=== PATIENT | male | born 1970 | race Caucasian/White ===

== ENCOUNTER 2019-09-18 14:24 | Emergency (ER) | payer OTHER ==
[~2019-09-18] VITALS: Ht 182.9 cm; Wt 102.1 kg
--- OUTSIDE RECORDS SUMMARY | ~2019-09-18 | XMS | Encounter Summary ---
Demographics + + + | Address | [address] [address] | | | [facility] [facility] [address] | + + + | Home Phone | | + + + | Preferred Language | Unknown | + + + | Marital Status | Single | + + + | Muslim Affiliation | Unknown | + + + | Race | Unknown | + + + | Ethnic Group | Unknown | + + + Author + + + | Author | [facility] | | | and [place] | + + + | Organization | [facility] | | | and [place] | + + + | Address | Unknown | + + + | Phone | Unavailable | + + + Support + + + + + | Name | Relationship | Address | Phone | + + + + + | Elizabeth Venegas | ECON | [address] | | | | | [place] | | | | | [place], [place] | | | | | [address] | | + + + + + | Thu Fitzpatrick | ECON | [address] | | | | | [place], | | | | | [place] [address] | | + + + + + Care Team Providers + +------+ + | Care Woods Rider Name | Role | Phone | + +------+ + | No, Physician | PCP | Unavailable | + +------+ + Encounter Details +--------+ + + + + | Date | Type | Department | Care Team | Description | +--------+ + + + + | 06/06/ | Hospital | [facility] | Conversion | Diagnosis unknown | | 2017 | Encounter | CONVERSION [address] | Transaction, | | | | | [address] | Provider Unknown | | | | | [place] | [phone] | | | | | [address] | | | | | | [phone] | | | +--------+ + + + + Social History + +-------+ +--------+------+ | Tobacco Use | Types | Packs/Day | Years | Date | | | | | Used | | + +-------+ +--------+------+ | Never Smoker | | | | | + +-------+ +--------+------+ + + +---------+ + | Alcohol Use | Drinks/Week | oz/Week | Comments | + + +---------+ + | Not Asked | 0 Standard drinks | 0.0 | | | | or equivalent | | | + + +---------+ + + + + | Sex Assigned at | Date Recorded | | | | + + + | Not on file | | + + + documented as of this encounter Medications at Time of Discharge + + + +---------+ + + | Medication | Sig | Dispensed | Refills | Start | End Date | | | | | | Date | | + + + +---------+ + + | | Take 1-2 tablets by | 20 | 0 | 04/21/19 | | | HYDROcodone-acetamin | mouth every 6 hours | tablet | | 17 | 9 | | ophen (NORCO) 5-325 | as needed for Pain. | | | | | | mg per tablet | | | | | | + + + +---------+ + + | lisinopril | Take 10 mg by mouth | | 0 | | | | (PRINIVIL, ZESTRIL) | Daily. | | | | 9 | | 10 mg tablet | | | | | | + + + +---------+ + + | verapamil (VERELAN | Take 240 mg by mouth | | 0 | 10/30/19 | | | PM) 240 MG 24 hr | Daily. | | | 12 | 9 | | capsule | | | | | | + + + +---------+ + + documented as of this encounter Plan of Treatment Not on filedocumented as of this encounter Procedures + +--------+ + + + | Procedure Name | Priori | Date/Time | Associated Diagnosis | Comments | | | ty | | | | + +--------+ + + + | XR ANKLE LEFT 3 + VW | Routin | 06/06/2016 | | Results for this | | | e | 5:17 PM | | procedure are in the | | | | PDT | | results section. | + +--------+ + + + documented in this encounter Results XR Ankle Left 3 + Vw (06/06/2016 5:17 PM PDT) + + | Specimen | + + | | + + + + + | Narrative | Performed At | + + + | This is a non-reportable procedure without a radiologist report and | | | is used for image storage only | | + + + + + | Procedure Note | + + | Chris Barajas - 09/29/2018 8:10 AM PDT This is a non-reportable procedure | | without a radiologist report and isused for image storage only | + + documented in this encounter Visit Diagnoses + + | Diagnosis | + + | Diagnosis unknown Other unknown and unspecified cause of morbidity or mortality | + + documented in this encounter"
--- OUTSIDE RECORDS SUMMARY | ~2019-09-18 | XMS | Encounter Summary ---
Demographics + + + | Address | [place] [address] | | | [place] [facility] [address] | + + + | Home Phone | | + + + | Preferred Language | Unknown | + + + | Marital Status | Single | + + + | Yarsanism Affiliation | Unknown | + + + | Race | Unknown | + + + | Ethnic Group | Unknown | + + + Author + + + | Author | [facility] | | | and [place] | + + + | Organization | [facility] | | | and [place] | + + + | Address | Unknown | + + + | Phone | Unavailable | + + + Support + + + + + | Name | Relationship | Address | Phone | + + + + + | Elizabeth Venegas | ECON | [address] | | | | | [place] | | | | | [place], [place] | | | | | [address] | | + + + + + | Thu Fitzpatrick | ECON | [address] | | | | | [place], | | | | | [place] [address] | | + + + + + Care Team Providers + +------+ + | Care Senior Instructor Name | Role | Phone | + +------+ + PCP | Unavailable | + +------+ + Encounter Details +--------+ + + + + | Date | Type | Department | Care Team | Description | +--------+ + + + + | 10/18/ | Hospital | [facility] | Nadeen Astorga | | | 2007 | Encounter | [facility] EM[facility] | MD [address] | | | | | CENTER [address] | [facility], | | | | | [place], [place] | [place] [address] | | | | | [address] | [phone] | | | | | [phone] | | | +--------+ + + + + Social History + +-------+ +--------+------+ | Tobacco Use | Types | Packs/Day | Years | Date | | | | | Used | | + +-------+ +--------+------+ | Never Assessed | | | | | + +-------+ +--------+------+ + + + | Sex Assigned at | Date Recorded | | | | + + + | Not on file | | + + + documented as of this encounter Plan of Treatment Not on filedocumented as of this encounter Visit Diagnoses Not on filedocumented in this encounter"
--- OUTSIDE RECORDS SUMMARY | ~2019-09-18 | XMS | Encounter Summary ---
Demographics + + + | Address | [place] [address] | | | [place] [facility] [address] | + + + | Home Phone | | + + + | Preferred Language | Unknown | + + + | Marital Status | Single | + + + | Christian Affiliation | Unknown | + + + | Race | Unknown | + + + | Ethnic Group | Unknown | + + + Author + + + | Author | [facility] | | | and [place] | + + + | Organization | [facility] | | | and [place] | + + + | Address | Unknown | + + + | Phone | Unavailable | + + + Support + + + + + | Name | Relationship | Address | Phone | + + + + + | Elizabeth Venegas | ECON | [address] | | | | | [place] | | | | | [place], [place] | | | | | [address] | | + + + + + | Thu Fitzpatrick | ECON | [address] | | | | | [place], | | | | | [place] [address] | | + + + + + Care Team Providers + +------+ + | Care Technician Automated Equipment Name | Role | Phone | + +------+ + PCP | Unavailable | + +------+ + Encounter Details +--------+ + + + + | Date | Type | Department | Care Team | Description | +--------+ + + + + | 05/04/ | Hospital | [facility] | | | | 1991 | Encounter | MED CTR EMERGENCY | | | | | | CENTER [address] | | | | | | [place] | | | | | | [address] | | | | | | [phone] | | | +--------+ + + + [...]
--- OUTSIDE RECORDS SUMMARY | ~2019-09-18 | XMS | Encounter Summary ---
Demographics + + + | Address | [place] [address] | | | [place] [facility] [address] | + + + | Home Phone | | + + + | Preferred Language | Unknown | + + + | Marital Status | Single | + + + | Voodoo Affiliation | Unknown | + + + | Race | Unknown | + + + | Ethnic Group | Unknown | + + + Author + + + | Author | [facility] | | | and [place] | + + + | Organization | [facility] | | | and [place] | + + + | Address | Unknown | + + + | Phone | Unavailable | + + + Support + + + + + | Name | Relationship | Address | Phone | + + + + + | Elizabeth Venegas | ECON | [address] | | | | | [place] | | | | | [place], [place] | | | | | [address] | | + + + + + | Thu Fitzpatrick | ECON | [address] | | | | | [place], | | | | | [place] [address] | | + + + + + Care Team Providers + +------+ + | Care Set Up Machinist Name | Role | Phone | + +------+ + PCP | Unavailable | + +------+ + Encounter Details +--------+ + + + + | Date | Type | Department | Care Team | Description | +--------+ + + + + | 09/25/ | Hospital | [facility] | | | | 1997 | Encounter | MED CTR EMERGENCY | | | | | | CENTER [address] | | | | | | [place] | | | | | | [address] | | | | | | [phone] | | | +--------+ + + + [...]
--- OUTSIDE RECORDS SUMMARY | ~2019-09-18 | XMS | Encounter Summary ---
Demographics + + + | Address | [place] [address] | | | [facility] [facility] [address] | + + + | Home Phone | | + + + | Preferred Language | Unknown | + + + | Marital Status | Single | + + + | Buddhism Affiliation | Unknown | + + + | Race | Unknown | + + + | Ethnic Group | Unknown | + + + Author + + + | Author | [facility] | | | and [place] | + + + | Organization | [facility] | | | and [place] | + + + | Address | Unknown | + + + | Phone | Unavailable | + + + Support + + + + + | Name | Relationship | Address | Phone | + + + + + | Elizabeth Venegas | ECON | [address] | | | | | [place] | | | | | [place], [place] | | | | | [address] | | + + + + + | Thu Fitzpatrick | ECON | [address] | | | | | [place], | | | | | [place] [address] | | + + + + + Care Team Providers + +------+ + | Care Railroader Name | Role | Phone | + +------+ + | Denny Moore DO | PCP | | + +------+ + Encounter Details +--------+ + + + + | Date | Type | Department | Care Team | Description | +--------+ + + + + | 10/28/ | Abstract | [facility] | DATA [facility]IGRATION [facility]IDAL | | | 2011 | | Conversion Location | SR | | | | | [address] [facility] | | | | | | [place], [place] | | | | | | [address] | | | | | | [phone] | | | +--------+ + + + [...] + + documented as of this encounter Last Filed Vital Signs + + + + + | Vital Sign | Reading | Time Taken | Comments | + + + + + | Blood Pressure | 132/90 | 03/26/2010 12:00 AM | | | | | PST | | + + + + + | Pulse | - | - | | + + + + + | Temperature | - | - | | + + + + + | Respiratory Rate | - | - | | + + + + + | Oxygen Saturation | - | - | | + + + + + | Inhaled Oxygen | - | - | | | Concentration | | | | + + + + + | Weight | 102.1 kg (225 lb) | 03/31/2010 12:00 AM | | | | | PST | | + + + + + | Height | 179.7 cm (5' 10.75") | 03/26/2010 12:00 AM | | | | | PST | | + + + + + | Body Mass Index | 31.6 | 03/26/2010 12:00 AM | | | | | PST | | + + + + + documented in this encounter Plan of Treatment Not on filedocumented as of this encounter Visit Diagnoses Not on filedocumented in this encounter
--- OUTSIDE RECORDS SUMMARY | ~2019-09-18 | XMS | Clinical Summary ---
Demographics + + + | Address | [place] [address] | | | [place] [place] [address] | + + + | Home Phone | | + + + | Preferred Language | Unknown | + + + | Marital Status | Single | + + + | Roman Catholic Affiliation | Unknown | + + + | Race | Unknown | + + + | Ethnic Group | Unknown | + + + Author + + + | Author | [facility] | | | and [place] | + + + | Organization | [facility] | | | and [place] | + + + | Address | Unknown | + + + | Phone | Unavailable | + + + Support + + + + + | Name | Relationship | Address | Phone | + + + + + | Elizabeth Venegas | ECON | [address] | | | | | [place] | | | | | [place], [place] | | | | | [address] | | + + + + + | Thu Fitzpatrick | ECON | [address] | | | | | [place], | | | | | [place] [address] | | + + + + + Care Team Providers + +------+ + | Care Cost Manager Name | Role | Phone | + +------+ + | Reyes Basurto MD | PCP | | + +------+ + Allergies + + + + + + | Active Allergy | Reactions | Severity | Noted | Comments | | | | | Date | | + + + + + + | Bee Venom | Anaphylaxis | High | / | | | | | | 19 | | + + + + + + Medications + + + +---------+------+------+-------+ | Medication | Sig | Dispensed | Refills | Star | End | Statu | | | | | | t | Date | s | | | | | | Date | | | + + + +---------+------+------+-------+ | | Take 1 tablet by | | 0 | 05/0 | | Activ | | HYDROcodone-acetamin | mouth nightly as | | | 9/20 | | e | | ophen (NORCO) | needed for Severe | | | 19 | | | | 7.5-325 mg per | Pain. Limit to 10 | | | | | | | tablet | tabs per month | | | | | | + + + +---------+------+------+-------+ | EPINEPHrine | Inject 0.3 mg into | | 0 | | | Activ | | auto-injector | the muscle as needed | | | | | e | | (EPIPEN 2-YARIEL) 0.3 | for Anaphylaxis. | | | | | | | mg/0.3 mL injection | | | | | | | + + + +---------+------+------+-------+ | albuterol (PROAIR | Inhale 2 puffs into | | 0 | | | Activ | | HFA) 90 mcg/puff | the lungs every 6 | | | | | e | | inhaler | hours as needed for | | | | | | | | Wheezing. | | | | | | + + + +---------+------+------+-------+ | dilTIAZem | Take 240 mg by mouth | | 0 | | | Activ | | (CARDIZEM CD) 120 mg | Daily. | | | | | e | | 24 hr capsule | | | | | | | + + + +---------+------+------+-------+ | albuterol (PROAIR | Inhale 2 puffs into | 1 | 2 | 06/1 | | Activ | | HFA) 90 mcg/puff | the lungs EVERY 4 TO | Inhaler | | 7/20 | | e | | inhaler | 6 HOURS NEEDED | | | 20 | | | | | for Wheezing. | | | | | | + + + +---------+------+------+-------+ | benzonatate | Take 1 capsule by | 30 | 0 | 06/1 | | Activ | | (KENTON DIAZ) | mouth 3 times daily | capsule | | 7/20 | | e | | 100 mg | as needed for Cough. | | | 20 | | | | capsuleIndications: | | | | | | | | Bronchitis with | | | | | | | | bronchospasm | | | | | | | + + + +---------+------+------+-------+ Active Problems + + + | Problem | Noted Date | + + + | Paroxysmal atrial fibrillation | 07/03/2018 | + + + + + | Overview: Echocardiogram 07/03/2018 shows left ventricle is | | normal in size and function, ejection fraction is estimated at | | 62%, mildly thickened mitral valve with mild regurgitation, | | structurally normal tricuspid valve with mild insufficiency and | | peak velocity consistent with normal pulmonary pressures, left | | atrium is mildly enlarged, aortic root is mildly enlarged. | + + + + + | Hypertension, essential | 07/03/2018 | + + + | Closed displaced fracture of tarsal bone of left foot with | 09/08/2016 | | routine healing | | + + + | Neutrophilic leukocytosis | 06/07/2016 | + + + | Open fracture of left calcaneus | 06/06/2016 | + + + | Tachycardia-bradycardia | 03/26/2010 | + + + + + | Overview: LISETH [id number] Decision | + + + + + | ANXIETY STATE, UNSPECIFIED | 03/26/2010 | + + + + + | Overview: ICD-10 Record update | + + + + + | DUPUYTREN'S CONTRACTURE, LEFT | 03/26/2010 | + + + | DEPRESSION | | + + + | Esophageal reflux | | + + + | Fracture of rib | | + + + | Vasovagal syncope | | + + + Encounters +--------+ + + + + | Date | Type | Specialty | Care Team | Description | +--------+ + + + + | 08/03/ | Telephone | Case Management | Reyes Basurto, | Symptom Management | | 2020 | | | MD | | +--------+ + + + + | 08/01/ | Imaging | Radiology | Sarbjit Baldwin | | | 2019 | Exam | | B, DO | | +--------+ + + + + | 08/01/ | Clinical | Immediate Care | Sarbjit Baldwin | Bronchitis with | | 2020 | Support | | B, DO | bronchospasm | | | | | | (Primary Dx); Cough | +--------+ + + + + from Last 3 Months Immunizations + + + + | Name | Administration Dates | Next Due | + + + + | HEP B, 3 DOSE | 12/04/1997, 07/03/1997, 05/24/1997 | | | (ADULT) | | | + + + + | TDAP, (ADOL/ADULT) | 06/06/2016 | | + + + + Social History + +-------+ +--------+------+ | Tobacco Use | Types | Packs/Day | Years | Date | | | | | Used | | + +-------+ +--------+------+ | Never Smoker | | | | | + +-------+ +--------+------+ + +---+---+---+ | Smokeless Tobacco: | | | | | Never Used | | | | + +---+---+---+ + + +---------+ + | Alcohol Use | Drinks/Week | oz/Week | Comments | + + +---------+ + | Yes | 0 Standard drinks | 2.0 | | | | or equivalent 2 | | | | | Cans of beer | | | + + +---------+ + + + + | Sex Assigned at | Date Recorded | | | | + + + | Not on file | | + + + Last Filed Vital Signs + + + + + | Vital Sign | Reading | Time Taken | Comments | + + + + + | Blood Pressure | 139/79 | 08/02/2019 12:37 PM | | | | | PDT | | + + + + + | Pulse | 74 | 08/02/2019 12:37 PM | | | | | PDT | | + + + + + | Temperature | 36.7 C (98.1 F) | 08/02/2019 12:37 PM | | | | | PDT | | + + + + + | Respiratory Rate | 16 | 08/02/2019 12:37 PM | | | | | PDT | | + + + + + | Oxygen Saturation | 96% | 08/02/2019 12:37 PM | | | | | PDT | | + + + + + | Inhaled Oxygen | - | - | | | Concentration | | | | + + + + + | Weight | 104.6 kg (230 lb 9.6 | 07/04/2018 4:25 AM | | | | oz) | PDT | | + + + + + | Height | 180.3 cm (5' 11") | 07/03/2018 3:57 PM | | | | | PDT | | + + + + + | Body Mass Index | 32.16 | 07/03/2018 3:57 PM | | | | | PDT | | + + + + + Plan of Treatment + + + + + | Health Maintenance | Due Date | Last | Comments | | | | Done | | + + + + + | Hepatitis C | | | | | Screening | 9 | | | + + + + + | Colorectal Cancer | | | | | Screening | 9 | | | | (Colonoscopy) | | | | + + + + + | Vaccine: Zoster (1 | | | | | of 2) | 9 | | | + + + + + | Vaccine: Influenza | | | | | (#1) | 0 | | | + + + + + | Vaccine: | | 06/07/19 | | | Dtap/Tdap/Td (2 - | | 17 | | | Td) | | | | + + + + + Procedures + +--------+ + + + | Procedure Name | Priori | Date/Time | Associated Diagnosis | Comments | | | ty | | | | + +--------+ + + + | XR CHEST PA AND | STAT | 08/02/2019 | Cough | Results for this | | LATERAL | | 1:28 PM | | procedure are in the | | | | PDT | | results section. | + +--------+ + + + | CORONAVIRUS | Routin | 08/02/2019 | Cough | Results for this | | (COVID-19) NAAT | e | 11:30 AM | | procedure are in the | | | | PDT | | results section. | + +--------+ + + + from Last 3 Months Results XR Chest PA and Lateral (08/02/2019 1:28 PM PDT) + + | Specimen | + + | | + + + + + | Impressions | Performed At | + + + | No radiographic evidence for acute disease in the chest. | [facility] | | Dictated and Signed by: Michael Ng MD Electronically signed: | | | 08/02/2019 1:39 PM | | + + + + + + | Narrative | Performed At | + + + | EXAM: XR CHEST PA AND LATERAL dated 08/02/2019 1:28 PM HISTORY: | [facility] | | Pain Comparison: 07/03/2018 TECHNIQUE: Frontal and lateral | | | views of the chest. FINDINGS: The lungs are symmetrically | | | aerated. They are clear. There are no pleural effusions. There | | | is no pneumothorax. The cardiac and mediastinal contours are not | | | enlarged. The visible osseous structures are unremarkable. | | + + + + + | Procedure Note | + + | Karl, Rad Results In - 08/02/2019 1:42 PM PDT EXAM: XR CHEST PA AND LATERAL dated | | 08/02/2019 1:28 PMHISTORY: PainComparison: 07/03/2018TECHNIQUE: Frontal and lateral views | | of the chest.FINDINGS:The lungs are symmetrically aerated. They are clear. There are | | no pleuraleffusions. There is no pneumothorax. The cardiac and mediastinal contours | | arenot enlarged. The visible osseous structures are unremarkable. IMPRESSION: No | | radiographic evidence for acute disease in the chest. Dictated and Signed by: Michael Phelps | | MD Berenice Electronically signed: 08/02/2019 1:39 PM | | | |FINDINGS: | |The lungs are symmetrically aerated. They are clear. There are no pleural | |effusions. There is no pneumothorax. The cardiac and mediastinal contours are | |not enlarged. The visible osseous structures are unremarkable. | | | |IMPRESSION: | | | |No radiographic evidence for acute disease in the chest. | | | |Dictated and Signed by: Michael Ng MD | | Electronically signed: 08/02/2019 1:39 PM | + + + +---------+ + + | Performing | Address | City/State/Zipcode | Phone Number | | Organization | | | | + +---------+ + + | [facility] | | | | + +---------+ + + Coronavirus (COVID-19) NAAT (08/02/2019 11:30 AM PDT) + + + + + + | Component | Value | Ref Range | Performed | Pathologist | | | | | At | Signature | + + + + + + | SARS-CoV-2, | Not DetectedComment: | Not Detected | REFERENCE | | | NAAT | This test was developed | | LAB [facility] | | | (COVID-19) | and its performance | | - [facility] | | | | characteristics | | | | | | determinedby [facility] | | | | | | Laboratories. This test | | | | | | has not been FDA cleared | | | | | | orapproved. This test | | | | | | has been authorized by | | | | | | FDA under an Emergency | | | | | | UseAuthorization (EUA). | | | | | | This test is only | | | | | | authorized for the | | | | | | duration oftime the | | | | | | declaration that | | | | | | circumstances exist | | | | | | justifying | | | | | | theauthorization of the | | | | | | emergency use of in | | | | | | vitro diagnostic tests | | | | | | fordetection of | | | | | | SARS-CoV-2 virus and/or | | | | | | diagnosis of COVID-19 | | | | | | infectionunder section | | | | | | 564(b)(1) of the Act, 21 | | | | | | U.S.C. 360bbb-3(b)(1), | | | | | | unlessthe authorization | | | | | | is terminated or revoked | | | | | | sooner.When diagnostic | | | | | | testing is negative, the | | | | | | possibility of a | | | | | | falsenegative result | | | | | | should be considered in | | | | | | the context of a | | | | | | patient'srecent | | | | | | exposures and the | | | | | | presence of clinical | | | | | | signs and | | | | | | symptomsconsistent with | | | | | | COVID-19. An individual | | | | | | without symptoms of | | | | | | COVID-19and who is not | | | | | | shedding SARS-CoV-2 | | | | | | virus would expect to | | | | | | have anegative (not | | | | | | detected) result in this | | | | | | assay. | | | | + + + + + + + + | Specimen | + + | Tissue - Specimen | | from throat | | (specimen) | + + + + + | Narrative | Performed At | + + + | Performed at: 01 - [facility] [address] [place], [place] | REFERENCE LAB | | [id number] Oral Health Therapist: Asaf Low MD, Phone: [phone] | [facility] | + + + + + + + + | Performing | Address | City/State/Zipcode | Phone Number | | Organization | | | | + + + + + | REFERENCE LAB | [address] | [place], [place] | [phone] | | [facility] | [address] | [address] | | + + + + + from Last 3 Months Insurance + +--------+ +--------+ +---------+--------+ | Payer | Benefi | Subscriber | Effect | Phone | Address | Type | | | t Plan | ID | margarita | | | | | | / | | Dates | | | | | | Group | | | | | | + +--------+ +--------+ +---------+--------+ | [employer] | SAIF | [id number] | | [phone] | | Indemn | | | WC | | 013-Pr | 5 | | ity | | | | | esent | | | | + +--------+ +--------+ +---------+--------+ + +--------+ +--------+ + + | Guarantor Name | Accoun | Relation to | Date | Phone | Billing Address | | | t Type | Patient | of | | | | | | | | | | + +--------+ +--------+ + + | Yvette Venegas | 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 | [birth year] | | [address] | | | s Comp | | 1971 | [phone] | [place], | | | | | | [address] (Home) | [place] [address] | | | | | | [phone] | | | | | | | 6 (Work) | | + +--------+ +--------+ + + | Yvette Venegas | Person | Self | [birth year] | | [address] [place] | | | al/Fam | | 1971 | [phone] | [place] | | | zeynep | | | 0 (Home) | [address] | + +--------+ +--------+ + + Advance Directives + + + + + | Type | Date Recorded | Patient | Explanation | | | | Train Conductor | | + + + + + | Power of | | | | | Scientific Diver | | | | + + + + + | Advance | 07/03/2018 11:35 | | | | Directive | AM | | | + + + + + + + + + + | Code Status | Date | Date | Comments | | | Activated | Inactivated | | + + + + + | Full Code | 07/03/2018 | 07/06/2018 | | | | 3:54 PM | 7:25 PM | | + + + + +
--- OUTSIDE RECORDS SUMMARY | ~2019-09-18 | XMS | Encounter Summary ---
Demographics + + + | Address | [id number] | | | [place] [facility] [address] | + + + | Home Phone | | + + + | Preferred Language | Unknown | + + + | Marital Status | Single | + + + | Episcopalian Affiliation | Unknown | + + + | Race | Unknown | + + + | Ethnic Group | Unknown | + + + Author + + + | Author | [facility] | | | and [place] | + + + | Organization | [facility] | | | and [place] | + + + | Address | Unknown | + + + | Phone | Unavailable | + + + Support + + + + + | Name | Relationship | Address | Phone | + + + + + | Elizabeth Venegas | ECON | [address] | | | | | [place] | | | | | [place], [place] | | | | | [address] | | + + + + + | Thu Fitzpatrick | ECON | [address] | | | | | [place], | | | | | [place] [address] | | + + + + + Care Team Providers + +------+ + | Care Personal Care Aid Name | Role | Phone | + +------+ + | Reyes Basurto MD | PCP | | + +------+ + Encounter Details +--------+ + + + + | Date | Type | Department | Care Team | Description | +--------+ + + + + | 06/18/ | Orders Only | [facility] | Candelario Cm ARNP | | | 2016 | | [facility] | [address] | | | | | [address] | [place], [place] | | | | | [place], [place] | [id number] | | | | | [address] | | | | | | [phone] | | | +--------+ + + + [...] LEFT 3 + VW | Routin | 06/18/2016 | | Results for this | | | e | 10:39 AM | | procedure are in the | | | | PDT | | results section. | + +--------+ + + + documented in this encounter Results XR Ankle Left 3 + Vw (06/18/2016 10:39 AM PDT) + + | Specimen | + + | | + + + + + | Narrative | Performed At | + + + | History: This is a 45 y.o. year old male. Diagnosis for Order | | | ICD-10-CM 1. Acute left ankle pain M25.572 X-ray ankle left | | | Indications: Left calcaneal extra-articular fracture follow-up | | | Technique: 3 view x-ray of the left ankle. Comparison Exam: | | | Comparison with x-rays of the left ankle in May 2016 | | | Findings/Impression: 1. Left calcaneus fracture that is | | | extra-articular with shortening and compression 2. No evidence | | | of subtalar joint involvement. BEE SWEENEY DO 06/30/2016 | | | | | + + + + + | Procedure Note | + + | Chris Barajas Conversion - 10/06/2018 8:14 PM PDT History: This is a 45 y.o. year old | | male. Diagnosis for Order ICD-10-CM1. Acute left ankle pain M25.572 X-ray ankle left | | Indications: Left calcaneal extra-articular fracture follow-up Technique: 3 view x-ray | | of the left ankle. Comparison Exam: Comparison with x-rays of the left ankle in | | May2016 Findings/Impression: 1. Left calcaneus fracture that is extra-articular with | | shortening andcompression 2. No evidence of subtalar joint involvement. BEE SWEENEY, | | DO06/30/2016 | | | |Comparison Exam: Comparison with x-rays of the left ankle in May | |2016 | | | |Findings/Impression: | | | |1. Left calcaneus fracture that is extra-articular with shortening and | |compression | | | |2. No evidence of subtalar joint involvement. | | | | | |BEE SWEENEY, DO | |06/30/2016 | | | | | + + documented in this encounter Visit Diagnoses Not on filedocumented in this encounter"
--- OUTSIDE RECORDS SUMMARY | ~2019-09-18 | XMS | Encounter Summary ---
Demographics + + + | Address | [place] [address] [address] | | | [facility] [facility] [address] | + + + | Home Phone | | + + + | Preferred Language | Unknown | + + + | Marital Status | Single | + + + | Sabianist Affiliation | Unknown | + + + | Race | Unknown | + + + | Ethnic Group | Unknown | + + + Author + + + | Author | [facility] | | | and [place] | + + + | Organization | [facility] | | | and [place] | + + + | Address | Unknown | + + + | Phone | Unavailable | + + + Support + + + + + | Name | Relationship | Address | Phone | + + + + + | Elizabeth Venegas | ECON | [address] | | | | | [place] | | | | | [place], [place] | | | | | [address] | | + + + + + | Thu Fitzpatrick | ECON | [address] | | | | | [place], | | | | | [place] [address] | | + + + + + Care Team Providers + +------+ + | Care Teacher Education Instructor Name | Role | Phone | + +------+ + PCP | Unavailable | + +------+ + Encounter Details +--------+ + + + + | Date | Type | Department | Care Team | Description | +--------+ + + + + | 12/06/ | Hospital | [facility] | | | | 1994 | Encounter | MED CTR EMERGENCY | | | | | | CENTER [address] | | | | | | [place] | | | | | | [address] | | | | | | [phone] | | | +--------+ + + + [...]
--- OUTSIDE RECORDS SUMMARY | ~2019-09-18 | XMS | Encounter Summary ---
Demographics + + + | Address | [place] [address] | | | [place] [facility] [address] | + + + | Home Phone | | + + + | Preferred Language | Unknown | + + + | Marital Status | Single | + + + | Muslim Affiliation | Unknown | + + + | Race | Unknown | + + + | Ethnic Group | Unknown | + + + Author + + + | Author | [facility] | | | and [place] | + + + | Organization | [facility] | | | and [place] | + + + | Address | Unknown | + + + | Phone | Unavailable | + + + Support + + + + + | Name | Relationship | Address | Phone | + + + + + | Elizabeth Venegas | ECON | [address] | | | | | [place] | | | | | [place], [place] | | | | | [address] | | + + + + + | Thu Fitzpatrick | ECON | [address] | | | | | [place], | | | | | [place] [address] | | + + + + + Care Team Providers + +------+ + | Care Bolt Threader Name | Role | Phone | + +------+ + PCP | Unavailable | + +------+ + Encounter Details +--------+ + + + + | Date | Type | Department | Care Team | Description | +--------+ + + + + | 09/15/ | Hospital | [facility] | [place], | | | 2006 | Encounter | MED CTR EMERGENCY | Reyes Kramer MD [address] | | | | | [place] [address] | [facility] | | | | | [place] | [place] [address] | | | | | [address] | [phone] | | | | | [phone] | | | +--------+ + + + [...]
--- OUTSIDE RECORDS SUMMARY | ~2019-09-18 | XMS | Encounter Summary ---
Demographics + + + | Address | [place] [address] | | | [place] [facility] [address] | + + + | Home Phone | | + + + | Preferred Language | Unknown | + + + | Marital Status | Single | + + + | Sikh Affiliation | Unknown | + + + | Race | Unknown | + + + | Ethnic Group | Unknown | + + + Author + + + | Author | [facility] | | | and [place] | + + + | Organization | [facility] | | | and [place] | + + + | Address | Unknown | + + + | Phone | Unavailable | + + + Support + + + + + | Name | Relationship | Address | Phone | + + + + + | Elizabeth Venegas | ECON | [address] | | | | | [place] | | | | | [place], [place] | | | | | [address] | | + + + + + | Thu Fitzpatrick | ECON | [address] | | | | | [place], | | | | | [place] [address] | | + + + + + Care Team Providers + +------+ + | Care Nocturnist Physician Name | Role | Phone | + +------+ + | Denny Moore DO | PCP | | + +------+ + Encounter Details +--------+ + + + + | Date | Type | Department | Care Team | Description | +--------+ + + + + | 03/31/ | Hospital | [facility] | Kashif Grijalva | | | 2010 | Encounter | MED CTR XRAY [address] | MD Addy [address] [place] [address] | | | | | [place] | [place] | | | | | [place] [address] | [address] | | | | | [phone] | | | +--------+ + + + [...] + + + +---------+ + + | PARoxetine (PAXIL) | Take 20 mg by mouth | | 0 | 03/26/19 | | | 20 mg tablet | Daily. | | | 11 | 7 | + + + +---------+ + + documented as of this encounter Plan of Treatment Not on filedocumented as of this encounter Visit Diagnoses Not on filedocumented in this encounter"
--- OUTSIDE RECORDS SUMMARY | ~2019-09-18 | XMS | Encounter Summary ---
Demographics + + + | Address | [place] [address] [address] | | | [facility] [facility] [address] | + + + | Home Phone | | + + + | Preferred Language | Unknown | + + + | Marital Status | Single | + + + | Advent Affiliation | Unknown | + + + | Race | Unknown | + + + | Ethnic Group | Unknown | + + + Author + + + | Author | [facility] | | | and [place] | + + + | Organization | [facility] | | | and [place] | + + + | Address | Unknown | + + + | Phone | Unavailable | + + + Support + + + + + | Name | Relationship | Address | Phone | + + + + + | Elizabeth Venegas | ECON | [address] | | | | | [place] | | | | | [place], [place] | | | | | [address] | | + + + + + | Thu Fitzpatrick | ECON | [address] | | | | | [place], | | | | | [place] [address] | | + + + + + Care Team Providers + +------+ + | Care Medicine Worker Name | Role | Phone | + +------+ + | Reyes Basurto MD | PCP | | + +------+ + Reason for Visit + +--------+ + | Reason | Onset | Comments | | | Date | | + +--------+ + | Symptom Management | 08/03/ | | | | 2019 | | + +--------+ + Encounter Details +--------+ + + + + | Date | Type | Department | Care Team | Description | +--------+ + + + + | 08/03/ | Telephone | [facility] | Reyes Basurto, | Symptom Management | | 2019 | | [facility] | [address] [facility] | | | | | [address] [address] | [place] | | | | | [address] [place] | [address] | | | | | [place] [address] | [phone] | | | | | [phone] | | | +--------+ + + + [...] + + documented as of this encounter Functional Status + + + + | Functional Status | Response | Date of Assessment | + + + + | Are you deaf or do you have serious | No | 07/06/2018 | | difficulty hearing? | | | + + + + | Are you blind or do you have serious | No | 07/06/2018 | | difficulty seeing, even when wearing | | | | glasses? | | | + + + + | Do you have serious difficulty walking or | No | 07/06/2018 | | climbing stairs? (5 years old or older) | | | + + + + | Do you have difficulty dressing or bathing? | No | 07/06/2018 | | (5 years old or older) | | | + + + + | Because of a physical, mental, or emotional | No | 07/06/2018 | | condition, do you have difficulty doing | | | | errands alone such as visiting a doctor's | | | | office or shopping? [15 years old or | | | | older)] | | | + + + + + + + + | Cognitive Status | Response | Date of Assessment | + + + + | Because of a physical, mental, or emotional | No | 07/06/2018 | | condition, do you have serious difficulty | | | | concentrating, remembering, or making | | | | decisions? (5 years old or older) | | | + + + + documented as of this encounter Miscellaneous Notes Telephone Encounter - Yvonne Olivia, PT - 08/05/2019 10:39 AM PDT(for 1st contact and 2nd contact calls.) While waiting for your COVID-19 test results, you must wear a mask if yo u need to leave your home. This includes returning to a healthcare facility. Please arrive w earing your mask given to you during your initial evaluation. Do not throw your mask away. Was patient tested for COVID as part of Pre-Op clearance? No If yes, when is their upcoming surgery? N/A Patient reached? Yes, (negative) Called and gave the test results that COVID 19 is negative. Patient to cont inue social distancing, but no longer needs to be on home quarantine . May return to work if fever is gone and no meds were needed to reduce it within the last 24 hours. COVID testing done? Yes COVID results: Negative Describe your symptoms? Congestion and fatigue Are your symptoms getting better, worse, or the same? Symptoms: are improving Lemon in ice water or honey and lemon in tea Popsicles to help reduce core temp and/or sooth throat Use cough drops as needed Diligent hand washing. Soap and water is best for minium of 30 seconds. If using hand sanit izer, must scrub full 20-30 seconds to kill Coronavirus. Rest Fluids, sports drinks, Pedialyte Monitor temperature. If fever of 100.4 alternate use of Tylenol and Ibuprofen every 4 hours . If fever does not come down try a cool shower, light clothing, cool cloth to armpits and b ack of neck, and use of fan. If fever is not resolved within 24 hours or spikes to 103.0 ple ase call your doctors office or Urgent care on weekends. Stay at home so as not to spread germs to the public. If get diarrhea it is best to sanitize toilet with bleach after use. elephone EncounLeslie Corona RN - 08/04/2019 12:43 PM PDT(for 1st contact and 2nd contact calls. ) While waiting for your COVID-19 test results, you must wear a mask if you need to leave yo ur home. This includes returning to a healthcare facility. Please arrive wearing your mask g iven to you during your initial evaluation. Do not throw your mask away. Patient reached? Yes. (pending) Advised to continue home quarantine and social isolating until we get the re sults back of the COVID testing. Encouraged diligent hand washing, rest, and plenty of fluid s. COVID testing done? Yes COVID results: Pending Respiratory Panel results: None Detected [facility] [phone] [place] If an [place] resident, [facility] [phone] Describe your symptoms? Cough, Congestion and fatigue Encouraged rest and fluis- has bronchial pneumonia Are your symptoms getting better, worse, or the same? Symptoms: show no change Have you traveled to or been in contact with with someone who has traveled to [place], [place], [place], [place], or [place] within the last month? No Recommendations: Lemon in ice water or honey and lemon in tea Popsicles to help reduce core temp and/or sooth throat Use cough drops as needed Diligent hand washing. Soap and water is best for minium of 30 seconds. If using hand sanit izer, must scrub full 20-30 seconds to kill Coronavirus. Rest Fluids, sports drinks, Pedialyte Monitor temperature. If fever of 100.4 alternate use of Tylenol and Ibuprofen every 4 hours . If fever does not come down try a cool shower, light clothing, cool cloth to armpits and b ack of neck, and use of fan. If fever is not resolved within 24 hours or spikes to 103.0 ple ase call your doctors office or Urgent care on weekends. Stay at home so as not to spread germs to the public. If get diarrhea it is best to sanitize toilet with bleach after use. documented in thi s encounter Plan of Treatment Not on filedocumented as of this encounter Visit Diagnoses Not on filedocumented in this encounter Additional Health Concerns + + + + + | Infection | Onset Date | Last Indicated | Resolved Time | + + + + + | Rule out COVID-19 | 08/02/2019 | 08/02/2019 | 08/04/2019 4:07 PM | | | | | PDT | + + + + + documented as of this encounter"
--- OUTSIDE RECORDS SUMMARY | ~2019-09-18 | XMS | Encounter Summary ---
Demographics + + + | Address | [place] [address] [address] | | | [facility] [facility] [address] | + + + | Home Phone | | + + + | Preferred Language | Unknown | + + + | Marital Status | Single | + + + | Evangelical Affiliation | Unknown | + + + | Race | Unknown | + + + | Ethnic Group | Unknown | + + + Author + + + | Author | [facility] | | | and [place] | + + + | Organization | [facility] | | | and [place] | + + + | Address | Unknown | + + + | Phone | Unavailable | + + + Support + + + + + | Name | Relationship | Address | Phone | + + + + + | Elizabeth Venegas | ECON | [address] | | | | | [place] | | | | | [place], [place] | | | | | [address] | | + + + + + | Thu Fitzpatrick | ECON | [address] | | | | | [place], | | | | | [place] [address] | | + + + + + Care Team Providers + +------+ + | Care Ophthalmic Photographer Name | Role | Phone | + +------+ + | Reyes Basurto MD | PCP | | + +------+ + Encounter Details +--------+ + + + + | Date | Type | Department | Care Team | Description | +--------+ + + + + | 08/01/ | Imaging | [facility] | Sarbjit Baldiwn | | | 2020 | Exam | [facility] [address] | | | | [address] | [place] | | | | | [place] [address] | [address] | | | | | [phone] | | | +--------+ + + + [...] + documented in this encounter Results XR Chest PA and Lateral (08/02/2019 1:28 PM PDT) + + | Specimen | + + | | + + + + + | Impressions | Performed At | + + + | No radiographic evidence for acute disease in the chest. | [facility] | | Dictated and Signed by: Michael gN MD Electronically signed: | | | 08/02/2019 [...] | | | + +---------+ + + documented in this encounter Visit [...]
--- OUTSIDE RECORDS SUMMARY | ~2019-09-18 | XMS | Encounter Summary ---
Demographics + + + | Address | [place] [address] | | | [place] [facility] [address] | + + + | Home Phone | | + + + | Preferred Language | Unknown | + + + | Marital Status | Single | + + + | Caodaism Affiliation | Unknown | + + + | Race | Unknown | + + + | Ethnic Group | Unknown | + + + Author + + + | Author | [facility] | | | and [place] | + + + | Organization | [facility] | | | and [place] | + + + | Address | Unknown | + + + | Phone | Unavailable | + + + Support + + + + + | Name | Relationship | Address | Phone | + + + + + | Elizabeth Venegas | ECON | [address] | | | | | [place] | | | | | [place], [place] | | | | | [address] | | + + + + + | Thu Fitzpatrick | ECON | [address] | | | | | [place], | | | | | [place] [address] | | + + + + + Care Team Providers + +------+ + | Care Study Manager Name | Role | Phone | + +------+ + | Denny Moore DO | PCP | | + +------+ + Encounter Details +--------+ + + + + | Date | Type | Department | Care Team | Description | +--------+ + + + + | 11/17/ | Hospital | [facility] | [place], | | | 2012 | Encounter | MED CTR EMERGENCY | Reyes Kramer MD [address] | | | | | [place] [address] | [place] | | | | | [place], [place] | [place] [address] | | | | | [address] | [phone] | | | | | [phone] | | | +--------+ + + + [...] + + documented as of this encounter ED Notes Christofer Ritter MD - 11/17/2012 2:52 [place] [address] Patient Name: SAUMYA VENEGAS Provider: Unit #: [id number] Location: [facility] #: [id number] : 1970 DATE: 11/17/2012 PRIMARY PHYSICIAN: Dr. Farley. CHIEF COMPLAINT: Bee sting reaction. 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 He has a history anaphylaxis to bee stings. He wa ited a little bit and started to feel a little symptomatic, so he took some 75 mg of Benadr yl and he started getting some chest tightness and so he came in here. He did not have to u se his EpiPen prior to arrival. He says he has a little bit of itching on his legs. 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 CURRENT MEDICATIONS: 1. Verapamil. 2. Paroxetine. 3. Benadryl. ALLERGIES: NO MEDICATIONS. SOCIAL HISTORY: Does not smoke. REVIEW OF SYSTEMS All negative except noted above. PHYSICAL EXAMINATION VITAL SIGNS: Blood pressure 141/79, heart rate 81, respiratory rate 16, temperature 97.3, pulse oximetry 96% on room air. GENERAL: He is not in acute distress, a little bit anxious. HEENT: He has two bee sting sites on the left neck, no stinger in place. Skin does not hav e any rash, but he complains of itching on his legs. His oropharynx reveals no swelling of the tongue or lips. CARDIOVASCULAR: Reveals regular rate and rhythm. No murmur or rubs. LUNGS: Reveal coarse breath sounds, a little bit of expiratory wheezing bilaterally. EMERGENCY ROOM COURSE: The patient was given 0.3 mg of epinephrine IM and also some predni sone. He was observed in the ER for unde an hour and a half. During that time he steadily i mproved. I reexamined him several times and by the time of his discharge he feels normal. IMPRESSION: ACUTE ALLERGIC REACTION to bee sting. PLAN: Discharged home, given some new EpiPens, put him on prednisone for 4 more days, told to take Benadryl as needed and did an L and I form for him. DICTATED BY: Glen Ritter MD Emergency Medicine JOB #: [id number] EXT JOB #:[id number] cc: Sarbjit Farley <<Signature on File>> Jovanny Ritter MD1 1503 <Electronically signed by Christofer Ritter MD> documented in this encounter Plan of Treatment Not on filedocumented as of this encounter Visit Diagnoses Not on filedocumented in this encounter"
--- OUTSIDE RECORDS SUMMARY | ~2019-09-18 | XMS | Encounter Summary ---
Demographics + + + | Address | [place] [address] | | | [facility] [address] | + + + | Home Phone | | + + + | Preferred Language | Unknown | + + + | Marital Status | Single | + + + | Orthodox Affiliation | Unknown | + + + | Race | Unknown | + + + | Ethnic Group | Unknown | + + + Author + + + | Author | [facility] | | | and [place] | + + + | Organization | [facility] | | | and [place] | + + + | Address | Unknown | + + + | Phone | Unavailable | + + + Support + + + + + | Name | Relationship | Address | Phone | + + + + + | Elizabeth Venegas | ECON | [address] | | | | | [place] | | | | | [place], [place] | | | | | [address] | | + + + + + | Thu Fitzpatrick | ECON | [address] | | | | | [place], | | | | | [place] [address] | | + + + + + Care Team Providers + +------+ + | Care Primer Supervisor Name | Role | Phone | + +------+ + | Reyes Basurto MD | PCP | | + +------+ + Reason for Visit +--------+ + | Reason | Comments | +--------+ + | Cough | Room 8:cough with tightness of chest, using inhaler - helps - | | | hot/chills, possible fever | +--------+ + Encounter Details +--------+ + + + + | Date | Type | Department | Care Team | Description | +--------+ + + + + | 08/01/ | Clinical | [facility] | Sarbjit Baldwin | Bronchitis with | | 2020 | Support | CARE [address] | B, DO [address] | bronchospasm | | | | [place] | [place] | (Primary Dx); Cough | | | | [address] | [address] | | | | | [phone] | | | +--------+ + + + [...] + + + + | Weight | - | - | | + + + + + | Height | - | - | | + + + + + | Body Mass Index | - | - | | + + + + + documented in this encounter Functional Status + + + [...] + + documented as of this encounter Patient Instructions Patient Instructions Sarbjit Baldwin, - 08/02/2019 11:35 AM PDT Viral or Bacterial Bronchitis with Wheezing(Adult) Bronchitis is an infection of the air passages. It often occurs during a cold and is usuall y caused by a virus. Symptoms include cough with mucus (phlegm) and low-grade fever. This il lness is contagious during the first few days and is spread through the air by coughing and sneezing, or by direct contact (touching the sick person and then touching your own eyes, no se, or mouth). If there is a lot of inflammation, air flow is restricted. The air passages may also go int o spasm, especially if you have asthma. This causes wheezing and difficulty breathing even i n people who do not have asthma. Bronchitis usually lasts 7 to 14 days. The wheezing should improve with treatment during th e first week. An inhaler is often prescribed to relax the air passages and stop wheezing. An tibiotics will be prescribed if your doctor thinks there is also a secondary bacterial infec tion. Home care If symptoms are severe, rest at home for the first 2 to 3 days. When you go back to your usual activities, don't let yourself get too tired. Dont s'moke. Also avoid being exposed to secondhand smoke. You may use bmri-lmb-pfoswip medicine to control fever or pain, unless another medicine was prescribed. Note: If you have chronic liver or kidney disease or have ever had a stomach ulcer or gastrointestinal bleeding, talk with your healthcare provider before using these m edicines. Also talk to your provider if you are taking medicine to prevent blood clots.) Asp irin should never be given to anyone younger than 18 years of age who is ill with a viral in fection or fever. It may cause severe liver or brain damage. Your appetite may be poor, so a light diet is fine. Stay well hydrated by drinking 6 to 8 glasses of fluids per day (such as water, soft drinks, sports drinks, juices, tea, or soup ). Extra fluids will help loosen secretions in the nose and lungs. Jnbv-ixx-tepdsfy cough, cold, and sore-throat medicines will not shorten the length of t he illness, but they may be helpful to reduce symptoms. (Note: Don't use decongestants if yo u have high blood pressure.) If you were given an inhaler, use it exactly as directed. If you need to use it more oft en than prescribed, your condition may be worsening. If this happens, contact your healthcar e provider. If prescribed, finish all antibiotic medicine, even if you are feeling better after only a few days. Follow-up care Follow up with your healthcare provider, or as advised. If you had an X-ray or ECG (electro cardiogram), a specialist will review it. You will be notified of any new findings that may affect your care. If you are age 65 or older, or if you have a chronic lung disease or condition that affects your immune system, or you smoke, ask your healthcare provider about getting a pneumococcal vaccine and a yearly flu shot (influenza vaccine). When to seek medical advice Call your healthcare provider right away if any of these occur: Fever of 100.4F (38C) or higher, or as directed by your healthcare provider Coughing up increasing amounts of colored sputum Weakness, drowsiness, headache, facial pain, ear pain, or a stiff neck Call 911 Call 911 if any of these occur. Coughing up blood Worsening weakness, drowsiness, headache, or stiff neck Increased wheezing not helped with medication, shortness of breath, or pain with breathi nicole Fontenot last reviewed this educational content on 07/16/201719991774-3904 [email or web address]. [address] [place] [address]. All righ ts reserved. This information is not intended as a substitute for professional medical care. Always follow your healthcare professional's instructions. documented in this encounter Progress Notes Sarbjit Baldwin DO - 08/02/2019 11:35 AM PDT Subjective: Chief Complaint: Cough (Room 8:cough with tightness of chest, using inhaler - helps - hot/c hills, possible fever) NIDHI Crawford is a 48 y.o. male who presents today for days of chest congestion, slight expiratory w heeze, and cough his cough is semi-productive of a yellow to clear sputum which is worse at night and in the a.m. Chest congestion has progressively gotten worse since Wednesday. He was getting chills and possibly having fever which wax and wane in timing and intensity. He mohr s had to use his inhaler at home for the wheezing. He denies any recent travel or sick conta cts either at home or at work. He does have a remote history of atrial fibrillation which is being controlled nicely with medication. He denies having any chest pain with this episode of respiratory symptoms. Patient's medications, allergies, past medical, surgical, social and family histories were reviewed and updated as appropriate. Review of Systems Constitutional: Negative for fever. HENT: Positive for congestion and sore throat. Respiratory: Positive for cough, sputum production and wheezing. Gastrointestinal: Negative for abdominal pain, nausea and vomiting. Genitourinary: Negative for dysuria. Musculoskeletal: Negative for myalgias. Skin: Negative for rash. Neurological: Negative for headaches. Objective: BP 139/79 | Pulse 74 | Temp 36.7 C (98.1 F) (Temporal) | Resp 16 | SpO2 96% Physical Exam Vitals signs and nursing note reviewed. Constitutional: Appearance: Normal appearance. He is well-developed. He is obese. HENT: Head: Normocephalic and atraumatic. Right Ear: Tympanic membrane and ear canal normal. Left Ear: Tympanic membrane and ear canal normal. Nose: Nose normal. Mouth/Throat: Mouth: Mucous membranes are moist. Pharynx: Posterior oropharyngeal erythema present. No oropharyngeal exudate. Eyes: Pupils: Pupils are equal, round, and reactive to light. Neck: Musculoskeletal: Normal range of motion and neck supple. No muscular tenderness. Cardiovascular: Rate and Rhythm: Normal rate and regular rhythm. Heart sounds: Normal heart sounds. Pulmonary: Effort: Pulmonary effort is normal. Breath sounds: Wheezing present. Comments: Coarse breath sounds in the lower left base Musculoskeletal: Normal range of motion. Lymphadenopathy: Cervical: No cervical adenopathy. Skin: General: Skin is warm and dry. Capillary Refill: Capillary refill takes less than 2 seconds. Neurological: General: No focal deficit present. Mental Status: He is alert and oriented to person, place, and time. Cranial Nerves: No cranial nerve deficit. Psychiatric: Mood and Affect: Mood normal. No results found for this or any previous visit (from the past 24 hour(s)). Assessment: 1. Bronchitis with bronchospasm benzonatate (TESSALON PERLES) 100 mg capsule promethazine-codeine (PHENERGAN WITH CODEINE) 6.25-10 mg/5 mL syrup 2. Cough Coronavirus (COVID-19) NAAT XR Chest PA and Lateral Plan: Self quarantine instructions were given and he stated comprehension to these instructions. Work note was written and given to patient until his COVID-19 results have returned. Chest x-ray does not show any pulmonary disease processes. We will place him on the ogof-tne-dqs program if he does not get markedly better within the next 2 to 3 days he will start doxycycline 100 mg p.o. twice daily x10 days. I gave him cough medicines to help with daytime and at bedtime cough. Him on prednisone 50 mg a day x5 days. I refilled his albuterol inhaler. I encouraged him to increase his fluids, wash hands frequently. He can use Tylenol or ibuprofen for fevers and myalgias. Patient states comprehension to these discharge instructions and agrees with this shared me dical decision making. This note or portions of this note have been dictated using Leet[employer] recognition s oftware. It will be reviewed for major content but may contain mistakes due to difficulties with voice recognition software. Anabela Berumen RN - 08/02/2019 11:35 AM PDT . [facility] Intake Form (RN) Affix Patient Label [] Photo ID Verified Patient Name:Yvette Venegas Provider:[facility] URGENT NURSE :1970 Date:08/02/19 MyChart: Activated Vitals: There were no vitals taken for this visit. RN History/Symptom Review (if available, RN to review patient chart): If any of these are true, patient must see provider in . [] Uncontrolled Diabetes Mellitus, with last A1c >8.0 or unknown [] COPD [] Current Cancer Treatment [] Immunosuppression [] Chronic Kidney Disease with GFR <50 mL/min [] Suspected Strep Throat [] Congestive Heart Failure [] Liver Disease [] Chronic Steroid Use [] Additional Evaluation Notes: See chief complaint Testing Protocol: Proceed to testing if ANY of the following conditions are present: DRIVE THRU SWAB SCREENING [] Asymptomatic, regardless of age, pre-procedure screening only [] Asymptomatic testing requested by authorized [facility] personnel, [facility] Infection Preventio n Nurse or Caregiver Health [] Asymptomatic testing requested for pre-travel screening [x] Age 15-70 with any symptoms indicated in MA screening [] Age >70 with Temp <100.4 F, O2 sat >95%, Pulse <100 bpm, without cough, Hx of fever, chi lls, chest pain, SOB, abdominal pain, vomiting or diarrhea. If only symptom is sore throat, body aches, headache and change in taste or smell ok for drive thru testing. PROVIDER EVALUATION REQUIRED [] Patient Requested [] Temp >102 F [] O2 Sat ? 95% [] Pulse > 100 [] Symptomatic with any listed comorbidities [] Dominant sore throat with little or no cough (strep rule out) [] Age <15 years old with symptoms [x] MA identified symptoms in screening that indicate testing (see MA intake) [] Symptom check completed - patient is asymptomatic - here for pre-procedure screening on ly Asymptomatic patients will NOT be screened regardless of exposure history, unless pre-proce dure screening is indicated. If dominant sore throat without cough, send to Urgent Care for provider evaluation and swab for strep (not provided at [facility]). Based on my assessment of both epidemiological and clinical factors, this patient [x] IS / [] IS NOT a person under investigation (PUI) for COVID-19. Any persons tested for COVID-19 are considered a PUI. Triage: Patient triaged to see provider in Urgent Care [] Yes [x] No Discharge: [x] Social Distancing/Quarantine Guidelines [x] Upper Respiratory Infection Self Care Instructions [x] Work Letter Anabela Berumen RN - 08/02/2019 11:35 AM [facility] Intake Form (MA) Affix Patient Label [] Photo ID Verified Patient Name:Yvette Venegas Provider:[facility] :1970 Date:08/02/19 [] Intention to see provider [] Intention for screening at drive through [] Pre-proced ure screening regardless of age [] <15, symptomatic (must be seen inside) MyChart: Activated Symptom Screen: How many days have you been experiencing symptoms? 3 days [x] Cough: duration of cough? 3 days ? If symptoms or cough >10 days, send to UC for provider evaluation [] Shortness of breath ? Confer with provider or send in to UC if obviously having labored breathing [] Fever >100.4 [x] Chills and/or repeated shaking with chills [] Sore Throat [x] Body Aches or Muscle Pain [] Headache [] Exposure to a person with confirmed COVID-19 If yes, details: Chest tightness -feels like bronchitis [x] Chest Pain, warm hand transfer to RN inside (Room 1 for triage) [] Abdominal Pain [] Nausea [] Vomiting [] Diarrhea [] Change in Sense of Smell and/or Taste [] Other:____light headedness Demographics: [] Exposure to person with confirmed COVID - 19 If yes, details: [x] Where do you work? [employer] [place] [employer] [x] What day did you last work? 07/28/19 [] Healthcare worker? NO documented in thi s encounter Plan of [...] + + | Performed at: 01 - [facility] [address] [place], [place] | REFERENCE LAB | | [phone] Senior Applications Analyst: Asaf Low MD, Phone: [phone] | [facility] | + + + + + + + + | Performing | Address | City/State/Zipcode | Phone Number | | Organization | | | | + + + + + | REFERENCE LAB | [address] | [place], [place] | [phone] | | [facility] | [address] | [address] | | + + + + + documented in this encounter Visit Diagnoses + + | Diagnosis | + + | Bronchitis with bronchospasm - Primary Acute bronchitis | + + | Cough | + + documented in this encounter Additional Health Concerns + [...]
--- OUTSIDE RECORDS SUMMARY | ~2019-09-18 | XMS | Encounter Summary ---
Demographics + + + | Address | [place] [address] | | | [facility] [address] | + + + | Home Phone | | + + + | Preferred Language | Unknown | + + + | Marital Status | Single | + + + | Jewish Affiliation | Unknown | + + + | Race | Unknown | + + + | Ethnic Group | Unknown | + + + Author + + + | Author | [facility] | | | and [place] | + + + | Organization | [facility] | | | and [place] | + + + | Address | Unknown | + + + | Phone | Unavailable | + + + Support + + + + + | Name | Relationship | Address | Phone | + + + + + | Elizabeth Venegas | ECON | [address] | | | | | [place] | | | | | [place], [place] | | | | | [address] | | + + + + + | Thu Fitzpatrick | ECON | [address] | | | | | [place], | | | | | [place] [address] | | + + + + + Care Team Providers + +------+ + | Care Transportation Planning Engineer Name | Role | Phone | + +------+ + | Denny Moore DO | PCP | | + +------+ + Encounter Details +--------+ + + + + | Date | Type | Department | Care Team | Description | +--------+ + + + + | 06/30/ | Hospital | [facility] | Nadeen Astorga | | | 2012 | Encounter | [facility] | MD [address] | | | | | [address] | [facility] | | | | | [place] | [place] [address] | | | | | [address] | [phone] | | | | | [phone] | | | +--------+ + + + [...] documented as of this encounter ED Notes Nadeen Astorga MD - 06/30/2012 3:32 [place] [address] Patient Name: SAUMYA VENEGAS Provider: Unit #: [id number] Location: : 1970 DATE: 06/30/2012 PRIMARY CARE PHYSICIAN: Dr. Thompson at [facility]. CHIEF COMPLAINT: Fall, left flank pain. HISTORY OF PRESENT ILLNESS: This is a 41-year-old male who comes ambulatory to the emergen cy department. The patient was up on a ladder at a 6 feet height when he fell. His left fla nk came across a 4x4 that was suspended off the ground. He did not hit his head. He did not have any loss of consciousness. He complains of intense left flank pain, 8/10 in severity, worse with any kind of movement or with breathing, and he feels like he probably broke a r ib. He denies any other areas of back pain. No neck pain. PAST MEDICAL HISTORY: "Bradycardia". MEDICATIONS 1. Paroxetine. 2. Verapamil. ALLERGIES: NONE. REVIEW OF SYSTEMS: No vomiting. No hematuria. He has voided since the fall. PHYSICAL EXAMINATION VITAL SIGNS: Temp 98.0, respirations 16, heart rate 73, blood pressure 156/86, O2 saturati on 96% room air, 104 kg. GENERAL: An overweight male. SKIN: Warm, dry. He has a left flank hematoma at about the level of T10, but it is lateral to the spine and erythema extends around the left costal margin. HEAD: Normocephalic, atraumatic. NECK: Nontender. Normal range of motion. HEART: Regular rate and rhythm. No tachycardia. LUNGS: Clear to auscultation throughout bilaterally. CHEST: There was no palpable bony crepitation. No subcutaneous air. BACK: He was nontender to palpation along the midline thoracic and lumbar spine, but was t sascha just off the midline to the left. He does not really have any palpable paraspinal mus elisha spasm. ABDOMEN: He is tender to palpation in the left upper quadrant and left lateral flank espec ially. NEUROLOGIC: Patient is awake, alert, and oriented. EMERGENCY DEPARTMENT COURSE: Given the location of his contusion from a significant mechan ism of a fall, we established IV access. He was given morphine titrated to pain. CT of the chest, abdomen, and pelvis with IV contrast and thoracic and lumbar regions was ordered. He is certainly at risk for a pneumothorax, rib fractures, but especially an injury to the le ft kidney or spleen. Results of the CT were received from the radiologist indicating he has only one small leve l rib fracture at rib 10. No pneumothorax. No solid organ injury and that is reassuring. Th ere was no spine injury in the thoracic or lumbar spine and his neck is cleared clinically. No signs of a injury. He will be switched over to Percocet for pain. He has previously used hydrocodone and it h as not been very effective. He can also take ibuprofen. He should cough and deep breathe. Shana thomas discussed the importance of this to keep lungs healthy. He was given a note off of work i f needed and it looked like he was getting much better pain control. IMPRESSION: LEFT RIB FRACTURE, STATUS POST MECHANICAL FALL. DICTATED BY: Nadeen Astorga MD Emergency Medicine JOB #: [id number] EXT JOB #:[id number] <<Signature on File>> Nadeen Astorga MD07/18/12 1812 <Electronically signed by Nadeen Astorga MD> documented in this encounter Plan of Treatment Not on filedocumented as of this encounter Procedures + +--------+ + + + | Procedure Name | Priori | Date/Time | Associated Diagnosis | Comments | | | ty | | | | + +--------+ + + + | CT CHEST ABDOMEN | Routin | 06/30/2012 | | Results for this | | PELVIS W CONTRAST | e | 12:40 PM | | procedure are in the | | | | PDT | | results section. | + +--------+ + + + documented in this encounter Results CT Chest Abdomen Pelvis w Contrast (06/30/2012 12:40 PM PDT) + + | Specimen | + + | | + + + + + | Narrative | Performed At | + + + | [facility] | [place] | | Department [address] [facility] | [facility] | | [ rep [address]] [ rep [facility] | | st zip] Signed | - IMAGING | | | | | Patient Name: SAUMYA VENEGAS Jovanny Physician: | | | SCHR.01 : 1970 Age: 41 Sex: M Unit #: [id number] | | | Exam Date: 06/30/12 Location: ER | | | Report #: [id number] Page: | | | %(RAD)RES..mtdd.print.filter("pg") of %(RAD) | | | RES..mtdd.print.filter("tpg") | | | | | | Accession Number: [id number] | | | CT CHEST AND ABDOMEN PELVIS WITH IV CONTRAST CLINICAL | | | HISTORY: FELL OFF LADDER, TRAUMA, WITH LEFT-SIDED PAIN. | | | TECHNIQUE: Axial images were obtained from the base of the neck to | | | the inferior pelvis following administration of 100 mL Isovue 370 | | | contrast. Coronal and sagittal reformatted images were created. | | | FINDINGS: CHEST: The structures at the base of | | | the neck are unremarkable. No abnormal mediastinal lymph nodes are | | | present. The aorta and branch vessels are normal. The pulmonary | | | arteries are also normal. Heart size is within normal limits, | | | without pericardial effusion. The trachea and esophagus are normal. | | | Minimal atelectasis is seen in the dependent portions of the | | | lungs. The lungs are otherwise clear. Mild pleural thickening is | | | seen laterally at the mid right hemithorax, likely chronic in nature. | | | There is no evidence of calcification of the small area of | | | thickened pleura. Mild pleural thickening is also seen laterally | | | at the left lung base. There is no pleural effusion or pneumothorax. | | | A nondisplaced left lateral 10th rib fracture is present. No | | | spinal fractures of the thoracic spine are noted. | | | ABDOMEN/PELVIS: The liver, gallbladder, pancreas, spleen, and | | | bilateral adrenal glands are normal. An approximately 1.5 cm | | | fluid-density simple-appearing cyst is seen posteriorly at the | | | superior pole of the left kidney. The kidneys are otherwise | | | unremarkable in appearance, without evidence of stone or | | | hydronephrosis. No evidence of trauma to the kidneys is seen. No | | | ureteral abnormalities are evident. The stomach, | | | duodenum, and large bowel are normal. The ileocecal junction is | | | unremarkable. The large bowel is normal. The appendix is not | | | visualized. The abdominal and pelvis vessels are normal. No free | | | intraperitoneal air or fluid is present. The bladder is | | | moderately filled with urine and is normal in appearance. | | | Calcifications are seen centrally within the prostate. The | | | seminal vesicles are within normal limits. There is mild | | | diffuse degenerative disk disease. Facet degenerative change is seen | | | in the lower lumbar spine, particularly on the right at the level | | | of L4-L4. No fractures are identified. A fat- containing umbilical | | | hernia is present, without evidence of inflammatory change. The | | | muscles and body wall soft tissues are otherwise unremarkable. | | | IMPRESSION: 1. NONDISPLACED LEFT LATERAL 10TH RIB FRACTURE. | | | 2. MINIMAL ATELECTASIS IN THE DEPENDENT PORTIONS OF THE LUNGS. | | | MILD PLEURAL THICKENING BILATERALLY. 3. LEFT RENAL CYST. | | | Dictated Date/Time: 06/30/2012 12:40 Transcribed | | | Date/Time: 06/30/2012 12:58 Facilities Administrator: | | | <<Signature on File>> | | | Guzman | | | Darrius Andres MD06/30/12 5064 <Electronically signed by Guzman Thomas | | | Dmitry LEMUS> Guzman Andres MD 06/30/12 1240 | | | Facilities Administrator: Gabriel Mnrpupcpecazu87/16/13 1258 | | | Nadeen Astorga MD | | + + + + + + + + | Performing | Address | City/State/Zipcode | Phone Number | | Organization | | | | + + + + + | [address] | [address] | [place] | [phone] | | [facility] | | [address] | | | - IMAGING | | | | + + + + + documented in this encounter Visit Diagnoses Not on filedocumented in this encounter
--- OUTSIDE RECORDS SUMMARY | ~2019-09-18 | XMS | Encounter Summary ---
Demographics + + + | Address | [address] | | | [facility] [address] | + + + | Home Phone | | + + + | Preferred Language | Unknown | + + + | Marital Status | Single | + + + | Yazidi Affiliation | Unknown | + + + | Race | Unknown | + + + | Ethnic Group | Unknown | + + + Author + + + | Author | [facility] | | | and [place] | + + + | Organization | [facility] | | | and [place] | + + + | Address | Unknown | + + + | Phone | Unavailable | + + + Support + + + + + | Name | Relationship | Address | Phone | + + + + + | Elizabeth Venegas | ECON | [address] | | | | | [place] | | | | | [place], [place] | | | | | [address] | | + + + + + | Tuh Fitzpatrick | ECON | [address] | | | | | [place], | | | | | [place] [address] | | + + + + + Care Team Providers + +------+ + | Care Drum Worker Name | Role | Phone | + +------+ + | Reyes Basurto MD | PCP | | + +------+ + Encounter Details +--------+ + + + + | Date | Type | Department | Care Team | Description | +--------+ + + + + | 10/26/ | Abstract | [facility] | Provider, | Gastroesophageal | | 2019 | | CARDIOLOGY [address] | reflux disease, | | | | [place], | [address] | esophagitis presence | | | | [place] [address] | [place] [address] | not specified; | | | | [phone] | | Vasovagal syncope | +--------+ + + + + Social [...] filedocumented as of this encounter Visit Diagnoses + + | Diagnosis | + + | Gastroesophageal reflux disease, esophagitis presence not specified | + + | Vasovagal syncope Syncope and collapse | + + documented in this encounter"
--- OUTSIDE RECORDS SUMMARY | ~2019-09-18 | XMS | Encounter Summary ---
Demographics + + + | Address | [place] [address] [address] | | | [facility] [address] | + + + | Home Phone | | + + + | Preferred Language | Unknown | + + + | Marital Status | Single | + + + | Amish Affiliation | Unknown | + + + | Race | Unknown | + + + | Ethnic Group | Unknown | + + + Author + + + | Author | [facility] | | | and [place] | + + + | Organization | [facility] | | | and [place] | + + + | Address | Unknown | + + + | Phone | Unavailable | + + + Support + + + + + | Name | Relationship | Address | Phone | + + + + + | Elizabeth Venegas | ECON | [address] | | | | | [address] | | | | | [place], [place] | | | | | [address] | | + + + + + | Thu Fitzpatrick | ECON | [address] | | | | | [place], | | | | | [place] [address] | | + + + + + Care Team Providers + +------+ + | Care Chair Springer Name | Role | Phone | + +------+ + PCP | Unavailable | + +------+ + Encounter Details +--------+ + + + + | Date | Type | Department | Care Team | Description | +--------+ + + + + | 09/03/ | Hospital | [facility] | | | | 2005 | Encounter | [facility] | | | | | | [address] | | | | | | [place] | | | | | | [address] | | | | | | [phone] | | | +--------+ + + + [...]
--- OUTSIDE RECORDS SUMMARY | ~2019-09-18 | XMS | Encounter Summary ---
Demographics + + + | Address | [place] [address] | | | [facility] [facility] [address] | + + + | Home Phone | | + + + | Preferred Language | Unknown | + + + | Marital Status | Single | + + + | Druze Affiliation | Unknown | + + + | Race | Unknown | + + + | Ethnic Group | Unknown | + + + Author + + + | Author | [facility] | | | and [place] | + + + | Organization | [facility] | | | and [place] | + + + | Address | Unknown | + + + | Phone | Unavailable | + + + Support + + + + + | Name | Relationship | Address | Phone | + + + + + | Elizabeth Venegas | ECON | [address] | | | | | [address] | | | | | [place], [place] | | | | | [address] | | + + + + + | Thu Fitzpatrick | ECON | [address] | | | | | [place], | | | | | [place] [address] | | + + + + + Care Team Providers + +------+ + | Care Wrapper Cashier Name | Role | Phone | + +------+ + | Denny Moore DO | PCP | | + +------+ + Reason for Visit + + + | Reason | Comments | + + + | Cough | RM #3/X 1 Week | + + + | Pharyngitis | | + + + Encounter Details +--------+---------+ + + + | Date | Type | Department | Care Team | Description | +--------+---------+ + + + | 03/12/ | Office | [facility] | Guzman Polk, | Pharyngitis (Primary | | 2013 | Visit | CARE [address] | [address] | Dx) | | | | [place] | [place] | | | | | [address] | [id number] | | | | | [phone] | | | +--------+---------+ + + + Social History + +-------+ [...] + + + | Blood Pressure | 149/89 | 03/12/2013 1:05 PM | | | | | PST | | + + + + + | Pulse | 90 | 03/12/2013 1:05 PM | | | | | PST | | + + + + + | Temperature | 36.2 C (97.1 F) | 03/12/2013 1:05 PM | | | | | PST | | + + + + + | Respiratory Rate | 18 | 03/12/2013 1:05 PM | | | | | PST | | + + + + + | Oxygen Saturation | 96% | 03/12/2013 1:05 PM | | | | | PST | | + + + + + | Inhaled Oxygen | - | - | | | Concentration | | | | + + + + + | Weight | 112.8 kg (248 lb 9.6 | 03/12/2013 1:05 PM | | | | oz) | PST | | + + + + + | Height | 180.3 cm (5' 11") | 03/12/2013 1:05 PM | | | | | PST | | + + + + + | Body Mass Index | 34.67 | 03/12/2013 1:05 PM | | | | | PST | | + + + + + documented in this encounter Patient Instructions Patient Instructions Guzman Polk MD - 03/12/2013 1:33 PM PSTTake amoxicillin as pres cribed, rest, use bedside vaporizer and Tylenol as needed. Return to clinic if symptoms per sist, change or worsen over the next week. documented in this encounter Progress Notes Guzman Polk MD - 03/12/2013 1:40 PM PSTFormatting of this note might be different fr om the original. Chief Complaint: Cough and Pharyngitis Yvette is a 42 y.o. male who comes in complaining of upper respiratory symptoms for the last week, with fevers, malaise, myalgias, nasal congestion, sore throat and congested cough. No shortness of breath. His son comes in today with similar symptoms over the last 2 weeks. His son also has a right otitis media. Yvette has no other complaints. Has a negative past me dical history and does not use tobacco. Patient's medications, allergies, past medical, surgical, social and family histories were reviewed and updated as appropriate. Objective: BP 149/89 | Pulse 90 | Temp 36.2 C (97.1 F) (Temporal) | Resp 18 | Ht 1.803 m (5' 11") | Wt 112.764 kg (248 lb 9.6 oz) | BMI 34.67 kg/m2 | SpO2 96% General Appearance: Alert, cooperative, no distress, appears stated age Head: Normocephalic, without obvious abnormality, atraumatic Eyes: PERRL, conjunctiva/corneas clear, EOM's intact Ears: Normal TM's and external ear canals, and gross normal hearing Nose: Mildly congested Throat: With mild pharyngeal erythema with a white pocket of thick exudate in the tonsillar crypt though without other exudate Neck: Supple, symmetrical, with mild anterior cervical adenopathy Lungs: Clear to auscultation bilaterally, respirations unlabored Skin: Skin color, texture, turgor normal, no rashes or lesions Rapid strep negative Assessment and Plans: Acute pharyngitis. Will treat with rest, tylenol or ibuprofen as needed, and amoxicillin. Return to clinic if symptoms persist, change or worsen over the following week despite that. documented in this e ncounter Plan of Treatment Not on filedocumented as of this encounter Visit Diagnoses + + | Diagnosis | + + | Pharyngitis - Primary Acute pharyngitis | + + documented in this encounter
--- OUTSIDE RECORDS SUMMARY | ~2019-09-18 | XMS | Encounter Summary ---
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 response ST & T wave abnormalities may be secondary to rate and/or ischemia Abnormal ECG No previous ECGs available Confirmed by ALYSIA FLORES MD ([id number]) on 07/04/2018 7:34:52 AM CBC with Differential Collection Time: 07/03/18 11:23 Result Value Ref Range WBC 11.4 (H) 4.0 - 11.0 K/uL RBC 5.62 4.30 - 5.70 M/uL Hemoglobin 17.1 13.5 - 18.0 g/dL Hematocrit 49.8 40.0 - 51.0 % MCV 88.6 83.0 - 101.0 fL MCH 30.4 28.0 - 35.0 pg MCHC 34.3 32.0 - 36.0 g/dL RDW-CV 12.8 <15.0 % RDW-SD 41.4 35.1 - 46.3 fL Platelet Count 285 140 - 440 K/uL MPV 10.6 6.5 - 12.4 fL % Neutrophils 62.8 45.0 - 82.0 % % Lymphocytes 26.7 20.0 - 45.0 % % Monocytes 7.2 4.0 - 12.0 % % Eosinophils 2.6 0.0 - 5.0 % % Basophils 0.4 0.0 - 1.0 % % Immature Granulocytes 0.3 0.0 - 0.4 % Absolute Neutrophils 7.13 1.80 - 8.50 K/uL Absolute Lymphocytes 3.03 0.60 - 3.20 K/uL Absolute Monocytes 0.82 0.00 - 1.00 K/uL Absolute Eosinophils 0.29 0.00 - 0.40 K/uL Absolute Basophils 0.05 0.00 - 0.10 K/uL Absolute Immature Granulocytes 0.03 0.00 - 0.03 K/uL % nRBC 0 0 - 2 per 100 WBCs Absolute nRBC 0.00 0.00 - 0.01 K/uL Comprehensive Metabolic Panel Collection Time: 07/03/18 11:23 Result Value Ref Range Na 139 136 - 145 mmol/L K 3.5 3.4 - 5.1 mmol/L Cl 101 98 - 107 mmol/L CO2 27 20 - 31 mmol/L Anion Gap 11 3 - 16 mmol/L Glucose 120 (H) 60 - 106 mg/dL BUN 15 9 - 23 mg/dL Creatinine 1.25 0.70 - 1.30 mg/dL eGFR if not >60 >=60 mL/min/1.73m2 Ca 10.2 8.7 - 10.4 mg/dL Albumin 4.9 (H) 3.2 - 4.8 g/dL Bilirubin Total 1.4 (H) 0.3 - 1.2 mg/dL Total Protein 7.2 5.7 - 8.2 g/dL AST 45 (H) 0 - 34 U/L ALT 79 (H) 10 - 49 U/L Alkaline Phosphatase 48 46 - 116 U/L Globulin 2.3 2.1 - 3.8 g/dL Albumin/Globulin Ratio 2.1 (H) 0.8 - 1.9 BUN/Creatinine Ratio 12.0 Troponin I Collection Time: 07/03/18 11:23 Result Value Ref Range Troponin I <0.01 <0.06 ng/mL B Type Natriuretic Peptide Collection Time: 07/03/18 11:23 Result Value Ref Range BNP 205 (H) <100 pg/mL Protime INR Collection Time: 07/03/18 11:23 Result Value Ref Range Prothrombin Time 13.4 11.3 - 13.9 seconds INR 1.0 0.9 - 1.1 TSH Collection Time: 07/03/18 11:23 Result Value Ref Range TSH 1.37 0.55 - 4.78 uIU/mL ECHO Complete Collection Time: 07/03/18 16:46 Result Value Ref Range BASELINE BLOOD PRESSURE 120/72 mmHg Patient Weight (lbs) 220 lbs Patient Height 72 in LVIDd 5.37 cm FS 26 % LA volume 35.96 mL Ascending aorta 4.1 cm Aortic arch 2.95 cm AV mean gradient 3.94 mmHg LVOT peak kristen 81.74 cm/s LVOT peak VTI 15.31 cm AV peak kristen 120 cm/s AV VTI 22.41 cm AV peak gradient 5.76 mmHg LA Volume Index 16 mL/m2 AV LVOT Peak Gradient 2.67 mmHg AV LVOT Mean Gradient 1.53 mmHg TR Peak Gradient 20 mmHg TR Velocity 223.91 cm LV Diastolic Length 4C 6.37 cm LV Systolic Area PSAX 10.3 cm2 RV Diastolic Basal Diameter 2.71 cm LV Watts's Biplane EF 62 % AV Acceleration Time 49.73 msec LV ED Volume (Watts's) 61.2 ml LV ED Volume Index 28 ml/m2 LV ES Volume 23.11 ml LVOT Mean Velocity 55.99 cm/s AV Mean Velocity 96.57 cm/s RA Area 19.07 cm2 LA/Aorta Ratio 1.08 LA Area 12.58 cm2 LA Major 0.2241 cm LV ES Volume Index 10 ml/m2 LV Area Diastolic 16.98 cm2 Heart Rate 124 Aortic Root Diameter 3.8 cm IVS Diastolic Thickness MM 1.1 cm LVPW Diastolic Thickness MM 1 cm IVS Systolic Thickness MM 1.74 cm LV Systolic Diameter MM 3.95 cm LVPW Systolic Thickness MM 1.56 cm AV Cusp Seperation MM 2.17 cm LA Systolic Diameter MM 4.12 cm TAPSE 1.64 cm Troponin I Collection Time: 07/03/18 17:19 Result Value Ref Range Troponin I <0.01 <0.06 ng/mL Troponin I Collection Time: 07/03/18 23:05 Result Value Ref Range Troponin I <0.01 <0.06 ng/mL Basic Metabolic Panel Collection Time: 07/04/18 3:48 Result Value Ref Range Na 139 136 - 145 mmol/L K 3.4 3.4 - 5.1 mmol/L Cl 107 98 - 107 mmol/L CO2 23 20 - 31 mmol/L Anion Gap 9 3 - 16 mmol/L Glucose 117 (H) 60 - 106 mg/dL BUN 17 9 - 23 mg/dL Creatinine 0.93 0.70 - 1.30 mg/dL eGFR if not >60 >=60 mL/min/1.73m2 Ca 8.9 8.7 - 10.4 mg/dL BUN/Creatinine Ratio 18.3 CBC with Differential Collection Time: 07/04/18 3:48 Result Value Ref Range WBC 8.1 4.0 - 11.0 K/uL RBC 5.03 4.30 - 5.70 M/uL Hemoglobin 15.4 13.5 - 18.0 g/dL Hematocrit 44.6 40.0 - 51.0 % MCV 88.7 83.0 - 101.0 fL MCH 30.6 28.0 - 35.0 pg MCHC 34.5 32.0 - 36.0 g/dL RDW-CV 12.8 <15.0 % RDW-SD 41.8 35.1 - 46.3 fL Platelet Count 217 140 - 440 K/uL MPV 10.6 6.5 - 12.4 fL % Neutrophils 51.7 45.0 - 82.0 % % Lymphocytes 35.6 20.0 - 45.0 % % Monocytes 6.9 4.0 - 12.0 % % Eosinophils 4.7 0.0 - 5.0 % % Basophils 0.6 0.0 - 1.0 % % Immature Granulocytes 0.5 (H) 0.0 - 0.4 % Absolute Neutrophils 4.21 1.80 - 8.50 K/uL Absolute Lymphocytes 2.90 0.60 - 3.20 K/uL Absolute Monocytes 0.56 0.00 - 1.00 K/uL Absolute Eosinophils 0.38 0.00 - 0.40 K/uL Absolute Basophils 0.05 0.00 - 0.10 K/uL Absolute Immature Granulocytes 0.04 (H) 0.00 - 0.03 K/uL % nRBC 0 0 - 2 per 100 WBCs Absolute nRBC 0.00 0.00 - 0.01 K/uL Magnesium Collection Time: 07/04/18 3:48 Result Value Ref Range Magnesium 2.0 1.6 - 2.6 mg/dL Protime INR Collection Time: 07/04/18 3:48 Result Value Ref Range Prothrombin Time 14.3 (H) 11.3 - 13.9 seconds INR 1.1 0.9 - 1.1 Hepatic Function Panel Collection Time: 07/04/18 3:48 Result Value Ref Range Bilirubin Total 1.1 0.3 - 1.2 mg/dL Total Protein 5.9 5.7 - 8.2 g/dL Albumin 4.0 3.2 - 4.8 g/dL AST 28 0 - 34 U/L ALT 56 (H) 10 - 49 U/L Alkaline Phosphatase 40 (L) 46 - 116 U/L Globulin 1.9 (L) 2.1 - 3.8 g/dL Albumin/Globulin Ratio 2.1 (H) 0.8 - 1.9 Bilirubin, Direct 0.30 0.00 - 0.30 mg/dl Micro results Microbiology Results (72 hrs) Procedure Component Value Units Date/Time Culture, MRSA [[id number]] Collected: 07/03/18 1609 Order Status: Sent Lab Status: In process Updated: 07/03/18 1614 Specimen: Tissue from Nares Radiology results Xr Chest Ap Portable Result Date: 07/03/2018 CLINICAL INFORMATION: CHEST TIGHTNESS DIZZINESS. COMPARISON: None available. FINDINGS: Port able frontal chest radiograph Lungs: No focal airspace disease, pleural effusion, or pneumot horax. Heart/mediastinum: Cardiac silhouette is of normal size. Central pulmonary vasculatur e has a normal appearance. Bones: No acute osseous abnormality appreciated. IMPRESSION - No acute disease. Dictated and Signed by: Jaylen Manzano MD Electronically signed: 07/03/2018 3:01 PM Vitals Ranges: Temp: [35.8 C (96.4 F)-36.8 C (98.2 F)] 36.5 C (97.7 F) Pulse: [73-162] 90 Resp: [0-26] 17 BP: (94-134)/(45-110) 129/84 Vitals: Temp: 36.5 C (97.7 F) BP: 129/84 Pulse: 90 Resp: 17 SpO2: 96 % SpO2 96 % on room air at flow rate L/min Subjective Patient feels well today. Improved HR Exam Gen Isidro - alert, cooperative and no distress Head - Normocephalic Eyes - PERRL, conjunctiva/corneas clear ENT - mucous membranes moist Neck - supple Lungs - CTA throughout Heart - Irregularly irregular Abdomen - Normoactive bowel sounds, non-tender non-distended Extremities - no peripheral edema, no clubbing or cyanosis Skin - No rashes Neurologic - Alert and oriented x 3 Edilberto Orr 07/04/2018 9:01 Located within [facility] documented in this e ncounter H&P Notes Edilberto Orr MD - 07/03/2018 1:46 PM PDTFormatting of this note might be different fr om the original. [place] HOSPITALIST HISTORY & PHYSICAL Patient: Saumya Venegas : 1970: Age: 47 y.o. MedRec: [id number] Admission date: 07/03/2018 Hospital day # : 0 Physician author: Edilberto Orr MD Today: 07/03/2018 CHIEF COMPLAINT: Heart palpitations HISTORY OF PRESENT ILLNESS: This is a 47 y.o. male with a history of hypertension essential, "arrhythmia" who presents with atrial fibrillation with rapid ventricular response. Patient reports 1 day prior to pr esentation while moving have been chest tightness, substernal with associated lightheadednes s. She reports bending over to slat pickler an item and having increased lightheadedness. Posit margarita shortness of breath with exertion. Patient noted heart palpitations. No fever or chill s. Patient had one episode of nausea/vomiting (nonbloody, nonbilious). No abdominal pain, changes in voiding. Patient reports father had atrial fibrillation in the past status post ablation. Patient presented to the emergency department and found to be in atrial fibrillation with R VR. Started on diltiazem drip after receiving diltiazem 50 mg. Patient was previously take n verapamil. PAST MEDICAL and SURGICAL HISTORY: Hypertension, "arrhythmia " FAMILY HISTORY: Father had history of atrial fibrillation SOCIAL HISTORY: reports that he has never smoked. He has never used smokeless tobacco. REVIEW OF SYSTEMS: Review of Systems Constitutional: Negative. HENT: Negative. Eyes: Negative. Respiratory: Positive for shortness of breath. Negative for cough and sputum production. Cardiovascular: Positive for chest pain and palpitations. Gastrointestinal: Positive for nausea and vomiting. Negative for abdominal pain and diarrhe a. Genitourinary: Negative. Musculoskeletal: Negative. Skin: Negative. Neurological: Negative. Endo/Heme/Allergies: Negative. Psychiatric/Behavioral: Negative. HOME MEDICATIONS: PT REPORTED TAKING NOT TAKING Medication Sig Last Dose Dispense Doc. Provider HYDROcodone-acetaminophen (NORCO) 5-325 mg per tablet Take 1-2 tablets by mouth every 6 ho urs as needed for Pain. Taking 20 tablet Guzman Polk MD lisinopril (PRINIVIL, ZESTRIL) 10 mg tablet Take 10 mg by mouth Daily. Taking Historical Provider, promethazine-codeine (PHENERGAN WITH CODEINE) 6.25-10 mg/5 mL syrup Take one to 2 teaspoon s every 4 hours as needed for cough. Patient not taking: Reported on 07/03/2018 Not Taking 1 20 mL Guzman Polk MD verapamil (VERELAN PM) 240 MG 24 hr capsule Take 240 mg by mouth Daily. Taking DATA MIGRA TION CASANDRA SR ALLERGIES: Allergies Allergen Reactions Bee Venom Anaphylaxis VITAL SIGNS: , Pulse: 126, Resp: 26, BP: 115/81, SpO2 95 % on room air at flow rate L/min No data recorded Weight: 99.8 kg (220 lb) PHYSICAL EXAMINATION: Constitutional Answering questions Eye No conjunctivitis nor scleral icterus ENT Unremarkable oral ear and nose Neck No adenopathy, thyromegaly nor masses Lymph node exam Negative in the following areas: neck and epitrochlear Cardiac + Irregularly irregular Lung CTA throughout Abdomen + BS, Soft, NT, no HSM nor masses Extremities No b/l LE edema Psych Mood and affect normal Neuro No focal deficit DIAGNOSTIC STUDIES: Lab results last 24 hours Recent Results (from the past 24 hour(s)) ECG 12 lead Collection Time: 07/03/18 11:14 Result Value Ref Range INTERPRETATION TEXT Not Confirmed CBC with Differential Collection Time: 07/03/18 11:23 Result Value Ref Range WBC 11.4 (H) 4.0 - 11.0 K/uL RBC 5.62 4.30 - 5.70 M/uL Hemoglobin 17.1 13.5 - 18.0 g/dL Hematocrit 49.8 40.0 - 51.0 % MCV 88.6 83.0 - 101.0 fL MCH 30.4 28.0 - 35.0 pg MCHC 34.3 32.0 - 36.0 g/dL RDW-CV 12.8 <15.0 % RDW-SD 41.4 35.1 - 46.3 fL Platelet Count 285 140 - 440 K/uL MPV 10.6 6.5 - 12.4 fL % Neutrophils 62.8 45.0 - 82.0 % % Lymphocytes 26.7 20.0 - 45.0 % % Monocytes 7.2 4.0 - 12.0 % % Eosinophils 2.6 0.0 - 5.0 % % Basophils 0.4 0.0 - 1.0 % % Immature Granulocytes 0.3 0.0 - 0.4 % Absolute Neutrophils 7.13 1.80 - 8.50 K/uL Absolute Lymphocytes 3.03 0.60 - 3.20 K/uL Absolute Monocytes 0.82 0.00 - 1.00 K/uL Absolute Eosinophils 0.29 0.00 - 0.40 K/uL Absolute Basophils 0.05 0.00 - 0.10 K/uL Absolute Immature Granulocytes 0.03 0.00 - 0.03 K/uL % nRBC 0 0 - 2 per 100 WBCs Absolute nRBC 0.00 0.00 - 0.01 K/uL Comprehensive Metabolic Panel Collection Time: 07/03/18 11:23 Result Value Ref Range Na 139 136 - 145 mmol/L K 3.5 3.4 - 5.1 mmol/L Cl 101 98 - 107 mmol/L CO2 27 20 - 31 mmol/L Anion Gap 11 3 - 16 mmol/L Glucose 120 (H) 60 - 106 mg/dL BUN 15 9 - 23 mg/dL Creatinine 1.25 0.70 - 1.30 mg/dL eGFR if not >60 >=60 mL/min/1.73m2 Ca 10.2 8.7 - 10.4 mg/dL Albumin 4.9 (H) 3.2 - 4.8 g/dL Bilirubin Total 1.4 (H) 0.3 - 1.2 mg/dL Total Protein 7.2 5.7 - 8.2 g/dL AST 45 (H) 0 - 34 U/L ALT 79 (H) 10 - 49 U/L Alkaline Phosphatase 48 46 - 116 U/L Globulin 2.3 2.1 - 3.8 g/dL Albumin/Globulin Ratio 2.1 (H) 0.8 - 1.9 BUN/Creatinine Ratio 12.0 Troponin I Collection Time: 07/03/18 11:23 Result Value Ref Range Troponin I <0.01 <0.06 ng/mL B Type Natriuretic Peptide Collection Time: 07/03/18 11:23 Result Value Ref Range BNP 205 (H) <100 pg/mL Protime INR Collection Time: 07/03/18 11:23 Result Value Ref Range Prothrombin Time 13.4 11.3 - 13.9 seconds INR 1.0 0.9 - 1.1 Micro results Microbiology Results (72 hrs) No results found for the last 72 hours. Radiology results No results found. I reviewed imaging EKG Results (I reviewed EKG) I reviewed and summarized old records ASSESSMENT: Principal Problem: Atrial fibrillation with RVR Code Status Full Medical Decision Maker Self DVT Prophylaxis Apixaban PLAN: New onset atrial fibrillation with RVR Patient presents with heart palpitations. Questionable history of arrhythmia on verapamil. Patient received diltiazem 15 mg, started on diltiazem drip. EKG consistent with A. fib w ith RVR. -Chads 2 vas score 1, given new onset of atrial fibrillation, will start apixaban, will nee d to evaluate with case management for cost with insurance, will need follow-up with cardiol adal for evaluation of cardioversion -Started diltiazem p.o., will hold verapamil -TSH ordered -TTE ordered to evaluate valvular disease -Telemetry -Serial trops Mild Transaminitis ALT 79, AST 45, alk phos 48, tbili 1.4 -Patient reports history of drinking alc 2-3 beers, three times a week, recently binged 2 d ays prior to presentation. No alc withdrawal history. -Repeat LFTs tomorrow HTN essential -Started diltiazem for now, hold lisinopril/verapamil FEN: Card PPX: Apixaban Disp: pending HR control [facility] Documentation I expect this patient will be hospitalized for greater than 2-midnights and expect the post -hospital plan to be discharge to home or to an adult foster home. Electronically signed by: Edilberto Orr MD 07/03/2018 13:46 [facility] documented in this e ncounter ED Notes Rupinder Hall MD - 07/03/2018 11:46 AM PDTFormatting of this note might be differe nt from the original. [facility] Saumya Venegas Emergency Department Encounter Note [address] [place] [id number] PCP:Rupinder Basurto MD DIAGNOSIS: 1. Atrial fibrillation with rapid ventricular response (HCC) 2. New onset atrial fibrillation (HCC) CHIEF COMPLAINT: Chief Complaint Patient presents with Chest Tightness Dizziness Mode of Arrival: wheelchair ED Room: ED07 [facility] Saumya Venegas is a 47 y.o. male who presents to the Emergency Department for evaluation. The patient states that yesterday evening he developed some chest tightness and some dizziness. It persisted through the evening and this morning and so he came in for evaluation. The s ymptoms have been constant but intermittently become quite worse. He feels his heart beatin g weird and feels some tightness in his chest and shortness of breath. He took some Tylenol without improvement. He does take verapamil daily for a history of arrhythmia but he canno t recall any additional details on this. It looks like he was diagnosed with a tachybradyca rdia type syndrome in 2010. He has no prior EKGs here. He has not had recent illnesses, fe vers, or chills. He does drink alcohol regularly. PAST MEDICAL & SURGICAL HISTORY Patient Active Problem List Diagnosis Date Noted DEPRESSION Tachycardia-bradycardia (HCC) 03/26/2010 Note Last Updated: 07/03/2014 PLRU [id number] Decision ANXIETY STATE, UNSPECIFIED 03/26/2010 Note Last Updated: 11/17/2014 ICD-10 Record update DUPUYTREN'S CONTRACTURE, LEFT 03/26/2010 History reviewed. No pertinent surgical history. 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 lisinopril (PRINIVIL, ZESTRIL) 10 mg tablet Take 10 mg by mouth Daily. promethazine-codeine (PHENERGAN WITH CODEINE) 6.25-10 mg/5 mL syrup Take one to 2 teasp oons every 4 hours as needed for cough. (Patient not taking: Reported on 07/03/2018) verapamil (VERELAN PM) 240 MG 24 hr capsule Take 240 mg by mouth Daily. ALLERGIES Allergies Allergen Reactions Bee Venom Anaphylaxis FAMILY AND SOCIAL HISTORY History reviewed. No pertinent family history. Social History Socioeconomic History Marital status: Single Spouse name: Not on file Number of children: Not on file Years of education: Not on file Highest education level: Not on file Tobacco Use Smoking status: Never Smoker Smokeless tobacco: Never Used REVIEW OF SYSTEMS As in history of present illness. A 10 system review was otherwise negative. PHYSICAL EXAM VITAL SIGNS: (first vital signs): Pulse: 148 Resp: 18 SpO2: 98 % BP: 102/77 Body mass inde x is 29.84 kg/m. Constitutional: Moderately uncomfortable male patient. HEENT: Atraumatic, PERRL, Oropharynx benign. Neck: Supple with full range of motion. No JVD No lymphadenopathy Chest: Good air movement bilaterally. No wheezes, No rales. Cardiovascular: Normal S1 S2 Abdomen: Soft, nontender and no rebound, guarding, or masses Back: Within normal limits No CVA tenderness Extremities: Nontender. No lower extremity edema, no calf asymmetry Present distal pulses. Skin: Warm, Dry, No rashes Neurologic: Alert & oriented. Cranial nerves II-XII intact , Gait and speech are normal Psychiatric: Normal mood, affect and judgement. EKG 12-lead EKG shows rapid atrial fibrillation with a ventricular rate of 159. No ischemic changes noted LABS Results for orders placed or performed during the hospital encounter of 07/03/18 CBC with Differential Result Value Ref Range WBC 11.4 (H) 4.0 - 11.0 K/uL RBC 5.62 4.30 - 5.70 M/uL Hemoglobin 17.1 13.5 - 18.0 g/dL Hematocrit 49.8 40.0 - 51.0 % MCV 88.6 83.0 - 101.0 fL MCH 30.4 28.0 - 35.0 pg MCHC 34.3 32.0 - 36.0 g/dL RDW-CV 12.8 <15.0 % RDW-SD 41.4 35.1 - 46.3 fL Platelet Count 285 140 - 440 K/uL MPV 10.6 6.5 - 12.4 fL % Neutrophils 62.8 45.0 - 82.0 % % Lymphocytes 26.7 20.0 - 45.0 % % Monocytes 7.2 4.0 - 12.0 % % Eosinophils 2.6 0.0 - 5.0 % % Basophils 0.4 0.0 - 1.0 % % Immature Granulocytes 0.3 0.0 - 0.4 % Absolute Neutrophils 7.13 1.80 - 8.50 K/uL Absolute Lymphocytes 3.03 0.60 - 3.20 K/uL Absolute Monocytes 0.82 0.00 - 1.00 K/uL Absolute Eosinophils 0.29 0.00 - 0.40 K/uL Absolute Basophils 0.05 0.00 - 0.10 K/uL Absolute Immature Granulocytes 0.03 0.00 - 0.03 K/uL % nRBC 0 0 - 2 per 100 WBCs Absolute nRBC 0.00 0.00 - 0.01 K/uL Comprehensive Metabolic Panel Result Value Ref Range Na 139 136 - 145 mmol/L K 3.5 3.4 - 5.1 mmol/L Cl 101 98 - 107 mmol/L CO2 27 20 - 31 mmol/L Anion Gap 11 3 - 16 mmol/L Glucose 120 (H) 60 - 106 mg/dL BUN 15 9 - 23 mg/dL Creatinine 1.25 0.70 - 1.30 mg/dL eGFR if not >60 >=60 mL/min/1.73m2 Ca 10.2 8.7 - 10.4 mg/dL Albumin 4.9 (H) 3.2 - 4.8 g/dL Bilirubin Total 1.4 (H) 0.3 - 1.2 mg/dL Total Protein 7.2 5.7 - 8.2 g/dL AST 45 (H) 0 - 34 U/L ALT 79 (H) 10 - 49 U/L Alkaline Phosphatase 48 46 - 116 U/L Globulin 2.3 2.1 - 3.8 g/dL Albumin/Globulin Ratio 2.1 (H) 0.8 - 1.9 BUN/Creatinine Ratio 12.0 Troponin I Result Value Ref Range Troponin I <0.01 <0.06 ng/mL B Type Natriuretic Peptide Result Value Ref Range BNP 205 (H) <100 pg/mL Protime INR Result Value Ref Range Prothrombin Time 13.4 11.3 - 13.9 seconds INR 1.0 0.9 - 1.1 ECG 12 lead Result Value Ref Range INTERPRETATION TEXT Not Confirmed IMAGING STUDIES (X-Rays interpreted by ED Physician) Chest x-ray shows no cardiomegaly, infiltrates, or effusions. ED COURSE & MEDICAL DECISION MAKING Pertinent Labs & Imaging studies were reviewed along with EMS notes and senior care record s if applicable. (See chart for details) Medications and Allergy list reviewed. Nurses note and old records were reviewed The patient was seen and examined, EKG was obtained on arrival showing rapid atrial fibrill ation. This appears to be a new diagnosis for this patient. Laboratory studies were sent. He was given a bolus dose of Cardizem with good rate control. He was subtotally started on infusion. His laboratory studies show slightly elevated transaminase studies as well as bi lirubin of 1.4. BNP minimally elevated, CBC unremarkable, troponin is undetectable. The [place] had some moderate anxiety associated with this which responded well to lorazepam. He was maintained on a Cardizem infusion with good rate control. I discussed the case with the hospitalist for admission. Critical care time: To treat this patients critical illness and prevent further clinical de terioration, I have provided 35 minutes of critical care services which include high-complex ity assessment and management supportive of vital organ system function. Last Set of Vital Signs: Pulse: 126 Resp: 26 SpO2: 95 % BP: 115/81 FINAL IMPRESSION ICD-10-CM ICD-9-CM 1. Atrial fibrillation with rapid ventricular response (HCC) I48.91 427.31 2. New onset atrial fibrillation (HCC) I48.91 427.31 Administrations This Visit dilTIAZem (CARDIZEM) 1 mg/mL in sodium chloride 0.9% 125 mL infusion Admin Date 07/03/2018 Action New Bag Dose 5 mg/hr Rate 5 mL/hr Route Intravenous Administered By Lore Knowles, Dock Operator Admin Date 07/03/2018 Action Rate/Dose Change Dose 10 mg/hr Rate 10 mL/hr Route Intravenous Administered By Greer Malin RN Admin Date 07/03/2018 Action New Bag Dose 15 mg/hr Rate 15 mL/hr Route Intravenous Administered By Lore Knowles, Dock Operator Admin Date 07/03/2018 Action New Bag Dose 10 mg/hr Rate 10 mL/hr Route Intravenous Administered By Lore Knowles, Dock Operator dilTIAZem (CARDIZEM) injection 15 mg Admin Date 07/03/2018 Action Given Dose 15 mg Route Intravenous Administered By Lore Knowles, Dock Operator LORazepam (ATIVAN) injection 1 mg Admin Date 07/03/2018 Action Given Dose 1 mg Route Intravenous Administered By Greer Malin RN sodium chloride 0.9% (NS) bolus 1,000 mL Admin Date 07/03/2018 Action New Bag Dose 1000 mL Rate 2,000 mL/hr Route Intravenous Administered By Lore Knowles, Dock Operator Portions of this chart were created with [employer] voice recognition software. Inadvertent so und alike substitutions may be present and are unintentional Rupinder Hall MD 07/03/18 1345 documented in t his encounter Miscellaneous Notes Plan of Riky - Denny Kilgore RN - 07/06/2018 3:21 PM PDTPt pleasant, calm, cooperative, A& Ox4. Pt c/o mild pain this morning to the head, prn [place] given 2 tabs with good relief note d. Pt c/o nausea this morning, prn Zofran given with good relief noted. Pt tolerating curren t diet well this afternoon. VSS, cms intact, independent in room, call light within reach. P t discharge to home this evening, AVS given, questions answered. lan of Riky - Eloise Mckeon RN - 07/06/2018 4: 48 AM PDTJody is alert and oriented. No falls or injury this shift. Complaint of headache at start of shift. Resolved with tylenol and caffeine. VSS, will continue to monitor. Electron ically signed by Eloise Mckeon RN at 07/06/2018 4:48 AM PDTPlan of Linnea Mcgarry RN - 07/05/2018 4:13 PM PDTPt received from ICU. Alert and orient. C/o h/a. lan of Amber Jimenez RN - 07/05/2018 3:22 PM PDTTransferred to room 444 via . Stable upon transfer with . Re port given to Linnea EPPS and questions answered.Electronically signed by SUPRIYA Pepper t 07/05/2018 3:30 PM PDTPlan of Amber Jimenez RN - 07/05/2018 3:02 PM PDTJody h as been in NSR since yesterday evening. Denies pain. SBA to BR today. Denies dizziness. S tates feeling better. VSS. To be moved to medical floor soon. lan of Angus Ruiz RN - 07/05/2018 7 :47 AM PDTJody A & O x4, no reports of chest pain during shift, complained of nausea and hea dache at beginning of shift- relief with zofran and tylenol, VSS, HR 80s-90s when awake, whe n sleeping HR 50-60s NSR, troponin's trending down. eICU Note - Suha Boyd RN - 07/04/2018 7:02 PM PDTTo day patient had a few episodes of chest pressure for increased rate of afib, 130's. After ad justment of XL diltiazem with no help was given metoprolol IV which lowered heart rate and b p (which was trending up). Pt reports feeling a little puny in general and appearance is so rt of edgy. Serial troponins in process, first one negative. Up to chair for partial bath, tolerating without problem. Continue cardiac monitoring. lan of Edith Bernstein RN - 07/04/2018 6:03 PM PDTPatient free from falls this shift, episodic Afib with increased chest pressure midday, IV metoprolol and additional PO diltiazem given. HR decreased to 80's to low 100's. Another episode of chest pressure occurred approx 1530 with Stable HR and Bp, norco magda, M D notified ECG and serial trop ordered.Tolerating food well. lan of Julee Dawson LICSW - 019 9:44 AM PDTDischarge Planning Goal: Pt to be discharged in a safe manner Summary /Intervention: Met with patient and his to discuss potential discharge needs. He is sitting up in bed, alert, well oriented, presents as somewhat anxious. Pt states he is independent at baseline. 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 Anticipates returning home "when my heart doesn't go all over the place" Discussed insurance, his anticipated new prescription. Pt states his preferred pharmacy is [facility] in [place]. Faxed Rx for Apixaban (Eliquis) to pharmacy, spoke with radioactivity technician who ran Rx through his [employer]. Pt copayment will be $35. [facility] in will have this Rx in stock by this afte rnoon Plan: Home with spouse As above, his insurance covers Apixaban with $35 copayment Electronically signed by: MARY Vernon 07/04/2018 9:44 lan of Gail Bhatt RN - 07/04/2018 4:42 AM PDTPatient is alert and oriented x 4, vital sig ns have been stable on room air. Diltiazem drip titrated off at 2155 tonight with 30 mg Dilt iazem PO given close to midnight. Heart rhythm continues in atrial fibrillation with rates 7 0's-90's. Patient experiences occasional chest discomfort/tightness when heart rate is close to 100. PRN Tylenol helpful for headache. Patient voiding clear, yellow urine into urinal a nd remains free from falls at this time. lan of Edith Bernstein RN - 07/03/2018 6:21 PM PDTPati ent free from falls this shift lan of Edith Bernstein RN - 07/03/2018 6:13 PM PDTPt arrive from ED at 1555, Diltiazem drip at 5 mg/hr titrated several times up and down per protocol at ap proc [id number] patient HR 130's sustained with Dilt maxed out. notified, PO dilt given and 5 mg Metoprolol Iv, Dilt titrated down to 5 mg/hr. HR decreased to 80's to 90's patient repor shila sudden onset of light headedness that resolved within 30-45 seconds. Patient free from falls, instructed to use call light r/t potential increased dizziness from rate controlling medications. Patient ate dinner tolerated well. documented in this encounter Plan of Treatment + +------+--------+ + + | Name | Type | Priori | Associated Diagnoses | Date/Time | | | | ty | | | + +------+--------+ + + | ED INFORMATION | BOB | Routin | | 07/03/2018 11:07 AM | | EXCHANGE | | e | | PDT | + +------+--------+ + + documented as of this encounter Procedures + +--------+ + + + | Procedure Name | Priori | Date/Time | Associated Diagnosis | Comments | | | ty | | | | + +--------+ + + + | CBC WITH | Routin | 07/06/2018 | | Results for this | | DIFFERENTIAL | e | 4:34 AM | | procedure are in the | | | | PDT | | results section. | + +--------+ + + + | MAGNESIUM | Routin | 07/06/2018 | | Results for this | | | e | 4:34 AM | | procedure are in the | | | | PDT | | results section. | + +--------+ + + + | COMPREHENSIVE | Routin | 07/06/2018 | | Results for this | | METABOLIC PANEL | e | 4:34 AM | | procedure are in the | | | | PDT | | results section. | + +--------+ + + + | TROPONIN I | Routin | 07/05/2018 | | Results for this | | | e | 5:16 AM | | procedure are in the | | | | PDT | | results section. | + +--------+ + + + | CBC WITH | Routin | 07/05/2018 | | Results for this | | DIFFERENTIAL | e | 5:16 AM | | procedure are in the | | | | PDT | | results section. | + +--------+ + + + | MAGNESIUM | Routin | 07/05/2018 | | Results for this | | | e | 5:16 AM | | procedure are in the | | | | PDT | | results section. | + +--------+ + + + | BASIC METABOLIC | Routin | 07/05/2018 | | Results for this | | PANEL | e | 5:16 AM | | procedure are in the | | | | PDT | | results section. | + +--------+ + + + | TROPONIN I | Routin | 07/04/2018 | | Results for this | | | e | 11:36 PM | | procedure are in the | | | | PDT | | results section. | + +--------+ + + + | TROPONIN I | Routin | 07/04/2018 | | Results for this | | | e | 5:07 PM | | procedure are in the | | | | PDT | | results section. | + +--------+ + + + | ECG 12 LEAD | Routin | 07/04/2018 | | Results for this | | | e | 4:47 PM | | procedure are in the | | | | PDT | | results section. | + +--------+ + + + | PROTIME INR | Routin | 07/04/2018 | | Results for this | | | e | 3:48 AM | | procedure are in the | | | | PDT | | results section. | + +--------+ + + + | CBC WITH | Routin | 07/04/2018 | | Results for this | | DIFFERENTIAL | e | 3:48 AM | | procedure are in the | | | | PDT | | results section. | + +--------+ + + + | MAGNESIUM | Routin | 07/04/2018 | | Results for this | | | e | 3:48 AM | | procedure are in the | | | | PDT | | results section. | + +--------+ + + + | HEPATIC FUNCTION | Routin | 07/04/2018 | | Results for this | | PANEL | e | 3:48 AM | | procedure are in the | | | | PDT | | results section. | + +--------+ + + + | BASIC METABOLIC | Routin | 07/04/2018 | | Results for this | | PANEL | e | 3:48 AM | | procedure are in the | | | | PDT | | results section. | + +--------+ + + + | TROPONIN I | Routin | 07/03/2018 | | Results for this | | | e | 11:05 PM | | procedure are in the | | | | PDT | | results section. | + +--------+ + + + | TROPONIN I | Routin | 07/03/2018 | | Results for this | | | e | 5:19 PM | | procedure are in the | | | | PDT | | results section. | + +--------+ + + + | ECHO COMPLETE | Routin | 07/03/2018 | | Results for this | | | e | 4:46 PM | | procedure are in the | | | | PDT | | results section. | + +--------+ + + + | CULTURE, MRSA | Routin | 07/03/2018 | | Results for this | | | e | 4:09 PM | | procedure are in the | | | | PDT | | results section. | + +--------+ + + + | XR CHEST AP PORTABLE | STAT | 07/03/2018 | | Results for this | | | | 11:33 AM | | procedure are in the | | | | PDT | | results section. | + +--------+ + + + | TROPONIN I | STAT | 07/03/2018 | | Results for this | | | | 11:23 AM | | procedure are in the | | | | PDT | | results section. | + +--------+ + + + | PROTIME INR | STAT | 07/03/2018 | | Results for this | | | | 11:23 AM | | procedure are in the | | | | PDT | | results section. | + +--------+ + + + | CBC WITH | STAT | 07/03/2018 | | Results for this | | DIFFERENTIAL | | 11:23 AM | | procedure are in the | | | | PDT | | results section. | + +--------+ + + + | TSH | Add-On | 07/03/2018 | | Results for this | | | | 11:23 AM | | procedure are in the | | | | PDT | | results section. | + +--------+ + + + | B TYPE NATRIURETIC | STAT | 07/03/2018 | | Results for this | | PEPTIDE | | 11:23 AM | | procedure are in the | | | | PDT | | results section. | + +--------+ + + + | COMPREHENSIVE | STAT | 07/03/2018 | | Results for this | | METABOLIC PANEL | | 11:23 AM | | procedure are in the | | | | PDT | | results section. | + +--------+ + + + | ECG 12 LEAD | STAT | 07/03/2018 | | Results for this | | | | 11:14 AM | | procedure are in the | | | | PDT | | results section. | + +--------+ + + + | ED INFORMATION | Routin | 07/03/2018 | | | | EXCHANGE | e | 11:07 AM | | | | | | PDT | | | + +--------+ + + + +---+--------+ | | | | | Proced | | | ure | | | Note - | | | Casandra, | | | Lab In | | | | | | Hlseve | | | n - | | | 05/19/ | | | 2019 | | | 11:08 | | | AM PDT | | | | | | Format | | | ting | | | of | | | this | | | note | | | might | | | be | | | differ | | | ent | | | from | | | the | | | origin | | | al.COL | | | LECTIV | | | E?NOTI | | | FICATI | | | ON?05/ | | | 19/201 | | | 9 | | | 11:04? | | | PIERRE | | | , SAUMYA | | | | | | D?MRN: | | | | | | [id number] | | | [id number] | | | riteri | | | a Met | | | | | | PDMPSe | | | curity | | | and | | | Safety | | | No | | | recent | | | | | | Securi | | | ty | | | Events | | | | | | curren | | | tly on | | | | | | fileED | | | Care | | | Guidel | | | inesTh | | | ere | | | are | | | curren | | | tly no | | | ED | | | Care | | | Guidel | | | lynn | | | for | | | this | | | patien | | | t. | | | Please | | | check | | | your | | | facili | | | ty's | | | medica | | | l | | | record | | | s | | | system | | | .Presc | | | riptio | | | n Drug | | | | | | Report | | | (12 | | | Mo.)Rx | | | | | | Detail | | | sFill | | | Date | | | Drug | | | Descri | | | ption | | | Qty. | | | Prescr | | | iber | | | CS MED | | | | | | 2019-0 | | | 1-31 | | | HYDROC | | | ODONE- | | | ACETAM | | | IN | | | 7.5-32 | | | 5 10 | | | RUPINDER | | | | | | CARMOD | | | Y 2 0 | | | 2018- | | | 2-21 | | | HYDROC | | | ODONE- | | | ACETAM | | | IN | | | 10-325 | | | MG 10 | | | | | | RUPINDER | | | | | | CARMOD | | | Y 2 10 | | | | | | 2018- | | | 1-28 | | | HYDROC | | | ODONE- | | | ACETAM | | | IN | | | 10-325 | | | MG 10 | | | | | | RUPINDER | | | | | | CARMOD | | | Y 2 10 | | | | | | 2018-0 | | | 9-27 | | | HYDROC | | | ODONE- | | | ACETAM | | | IN | | | 10-325 | | | MG 10 | | | | | | RUPINDER | | | | | | CARMOD | | | Y 2 10 | | | | | | 2018-0 | | | 6-21 | | | HYDROC | | | ODONE- | | | ACETAM | | | IN | | | 10-325 | | | MG 15 | | | | | | RUPINDER | | | | | | CARMOD | | | Y 2 10 | | | Rx | | | Summar | | | yMetri | | | c | | | Count | | | CS | | | II-V | | | Rx 5 | | | CS-II | | | Rx 5 | | | Quanti | | | ty | | | Dispen | | | sed 55 | | | | | | Unique | | | | | | Prescr | | | ibers | | | 1 | | | Unique | | | | | | Pharma | | | cies 1 | | | | | | Benzos | | | 0 | | | Opioid | | | s 4 | | | Long | | | Acting | | | | | | Opioid | | | s 0 | | | E.D. | | | Visit | | | Count | | | (12 | | | mo.)Fa | | | cility | | | | | | Visits | | | Low | | | Acuity | | | | | | Provid | | | ence | | | [facility] | | | [facility] | [facility] | | | l | | | Center | | | 1 0 | | | Total | | | 1 0 | | | Note: | | | Visits | | | | | | indica | | | te | | | total | | | known | | | visits | | | . | | | Medica | | | id Low | | | | | | Acuity | | | Dx | | | are | | | the | | | number | | | of | | | primar | | | y | | | diagno | | | ses on | | | the | | | Medica | | | id's | | | Low | | | Acuity | | | dx | | | list. | | | | | | Recent | | | | | | Emerge | | | ncy | | | Depart | | | ment | | | Visit | | | Summar | | | yDate | | | Facili | | | ty | | | City | | | State | | | Type | | | Diagno | | | ses or | | | Chief | | | | | | Compla | | | int | | | May | | | 19, | | | 2019 | | | Provid | | | ence | | | [facility] | | [place] | | | [place] | | | Emerge | | | ncy | | | Chest | | | | | | Tightn | | | ess | | | Recent | | | | | | Inpati | | | ent | | | Visit | | | Summar | | | yNo | | | record | | | ed | | | inpati | | | ent | | | visits | | | . Care | | | | | | Provid | | | ersThe | | | re are | | | no | | | care | | | provid | | | ers on | | | | | | record | | | at | | | this | | | time. | | | Collec | | | tive | | | Portal | | | This | | | patien | | | t has | | | regist | | | ered | | | at the | | | | | | Provid | | | ence | | | [facility] | [facility] | | | l | | | Center | | | | | | Emerge | | | ncy | | | Depart | | | ment | | | For | | | more | | | inform | | | ation | | | visit: | | | | | | https: | | | //secu | | | [email or web address] | | | ecarep | | | [email or web address] | | | m/ed | | | ent/ef | | | [id number] | | | [id number] | | | [id number] | | | [id number] | | | fceebd | | | [id number] | | | PLEASE | | | NOTE: | | | 1. | | | Any | | | care | | | recomm | | | endati | | | ons | | | and | | | other | | | clinic | | | al | | | inform | | | ation | | | are | | | provid | | | ed as | | | guidel | | | lynn | | | or for | | | | | | histor | | | ical | | | purpos | | | es | | | only, | | | and | | | provid | | | ers | | | should | | | | | | exerci | | | se | | | their | | | own | | | clinic | | | al | | | judgme | | | nt | | | when | | | provid | | | ing | | | care. | | | 2. | | | You | | | may | | | only | | | use | | | this | | | inform | | | ation | | | for | | | purpos | | | es of | | | treatm | | | ent, | | | paymen | | | t or | | | health | | | care | | | operat | | | ions | | | activi | | | ties, | | | and | | | subjec | | | t to | | | the | | | limita | | | tions | | | of | | | applic | | | able | | | Collec | | | tive | | | Polici | | | es. | | | 3. | | | You | | | should | | | | | | consul | | | t | | | direct | | | ly | | | with | | | the | | | organi | | | zation | | | that | | | provid | | | ed a | | | care | | | guidel | | | ine or | | | other | | | | | | clinic | | | al | | | histor | | | y with | | | any | | | questi | | | ons | | | about | | | additi | | | onal | | | inform | | | ation | | | or | | | accura | | | cy or | | | comple | | | teness | | | of | | | inform | | | ation | | | provid | | | ed.? | | | 2019 | | | Collec | | | tive | | | Medica | | | l | | | Techn[employer] | | | logies | | | , Inc[employer] | | | - | | | [email or web address] | | | llecti | | | vemedi | | | [email or web address] | | | m | +---+--------+ documented in this encounter Results Magnesium (07/06/2018 4:34 AM PDT) + +-------+ + + + | Component | Value | Ref Range | Performed | Pathologist | | | | | At | Signature | + +-------+ + + + | Magnesium | 2.2 | 1.6 - 2.6 mg/dL | [facility] | | | | | [facility] | | [facility] | | | [facility] - | | | | | | [facility]ATORY | | + +-------+ + + + + + | Specimen | + + | Blood | + + + + + + + | Performing | Address | City/State/Zipcode | Phone Number | | Organization | | | | + + + + + | [facility] | [address] | [place] | [phone] | | [facility] | | [address] | | | - LABORATORY | | | | + + + + + CBC with Differential (07/06/2018 4:34 AM PDT) + +-------+ + + + | Component | Value | Ref Range | Performed | Pathologist | | | | | At | Signature | + +-------+ + + + | White Blood | 7.5 | 4.0 - 11.0 K/uL | [facility] | | | Cells | | | [facility] | | [facility] | [facility] | | | | | | [facility] - | | | | | | LABORATORY | | + +-------+ + + + | Red Blood | 4.84 | 4.30 - 5.70 | [facility] | | | Cells | | M/uL | [facility] | | | | [facility] | [facility] | | | | | | [facility] - | | | | | | LABORATORY | | + +-------+ + + + | Hemoglobin | 15.0 | 13.5 - 18.0 | [facility] | | | | | g/dL | [facility] | | | [facility] | [facility] | | | | | | [facility] - | | | | | | LABORATORY | | + +-------+ + + + | Hematocrit | 43.1 | 40.0 - 51.0 % | [facility] | | | | | | [facility] | | | | | | [facility] | | | | | | [facility] - | | | | | | LABORATORY | | + +-------+ + + + | MCV | 89.0 | 83.0 - 101.0 fL | [facility] | | | | | | [facility] | | | | | | [facility] | | | | | | [facility] - | | | | | | LABORATORY | | + +-------+ + + + | MCH | 31.0 | 28.0 - 35.0 pg | [facility] | | | | | | [facility] | | | | | | [facility] | | | | | | [facility] - | | | | | | LABORATORY | | + +-------+ + + + | MCHC | 34.8 | 32.0 - 36.0 | [facility] | | | | | g/dL | [facility] | | | | | | [facility] | | | | | | [facility] - | | | | | | LABORATORY | | + +-------+ + + + | RDW-CV | 12.2 | <15.0 % | [facility] | | | | | | [facility] | | | | | | [facility] | | | | | | [facility] - | | | | | | LABORATORY | | + +-------+ + + + | RDW-SD | 39.8 | 35.1 - 46.3 fL | [facility] | | | | | | [facility] | | | | | | [facility] | | | | | | [facility] - | | | | | | LABORATORY | | + +-------+ + + + | Platelet | 210 | 140 - 440 K/uL | [facility] | | | Count | | | [facility] | | [facility] | | | [facility] | | | | | | [facility] - | | | | | | LABORATORY | | + +-------+ + + + | MPV | 10.7 | 6.5 - 12.4 fL | [facility] | | | | | | [facility] | | | | | | [facility] | | | | | | [facility] - | | | | | | LABORATORY | | + +-------+ + + + | % | 53.1 | 45.0 - 82.0 % | [facility] | | | Neutrophils | | | [facility] | | | | | | [facility] | | | | | | [facility] - | | | | | | LABORATORY | | + +-------+ + + + | % | 36.5 | 20.0 - 45.0 % | [facility] | | | Lymphocytes | | | [facility] | | | | | | [facility] | | | | | | [facility] - | | | | | | LABORATORY | | + +-------+ + + + | % Monocytes | 6.1 | 4.0 - 12.0 % | [facility] | | | | | | [facility] | | | | | | [facility] | | | | | | [facility] - | | | | | | LABORATORY | | + +-------+ + + + | % | 3.6 | 0.0 - 5.0 % | [facility] | | | Eosinophils | | | [facility] | | | | | | [facility] | | | | | | [facility] - | | | | | | LABORATORY | | + +-------+ + + + | % Basophils | 0.4 | 0.0 - 1.0 % | [facility] | | | | | | [facility] | | | | | | [facility] | | | | | | [facility] - | | | | | | LABORATORY | | + +-------+ + + + | % Immature | 0.3 | 0.0 - 0.4 % | [facility] | | | Granulocyte | | | [facility] | | | s | | | [facility]ICAL | | | | | | CENTER - | | | | | | LABORATORY | | + +-------+ + + + | Absolute | 4.01 | 1.80 - 8.50 | [facility] | | | Neutrophils | | K/uL | [facility] | | | | | | [facility] | | | | | | [facility] - | | | | | | LABORATORY | | + +-------+ + + + | Absolute | 2.75 | 0.60 - 3.20 | [facility] | | | Lymphocytes | | K/uL | [facility] | | | | | | [facility] | | | | | | [facility] - | | | | | | LABORATORY | | + +-------+ + + + | Absolute | 0.46 | 0.00 - 1.00 | [facility] | | | Monocytes | | K/uL | [facility] | | | | | | [facility] | | | | | | [facility] - | | | | | | LABORATORY | | + +-------+ + + + | Absolute | 0.27 | 0.00 - 0.40 | [facility] | | | Eosinophils | | K/uL | [facility] | | | | | | [facility] | | | | | | [facility] - | | | | | | LABORATORY | | + +-------+ + + + | Absolute | 0.03 | 0.00 - 0.10 | [facility] | | | Basophils | | K/uL | [facility] | | | | | | [facility] | | | | | | [facility] - | | | | | | LABORATORY | | + +-------+ + + + | Absolute | 0.02 | 0.00 - 0.03 | [facility] | | | Immature | | K/uL | [facility] | | | Granulocyte | | | MEDICAL | | | s | | | CENTER - | | | | | | LABORATORY | | + +-------+ + + + | % nRBC | 0 | 0 - 2 per 100 | [facility] | | | | | WBCs | [facility] | | | | | | [facility] | | | | | | [facility] - | | | | | | LABORATORY | | + +-------+ + + + | Absolute | 0.00 | 0.00 - 0.01 | [facility] | | | Arjun | | K/uL | [facility] | | | | | [facility] | | | | | | [facility] - | | | | | | LABORATORY | | + +-------+ + + + + + | Specimen | + + | Blood | + + + + + + + | Performing | Address | City/State/Zipcode | Phone Number | | Organization | | | | + + + + + | [facility] | [address] | [place] | [phone] | | [facility] | | [address] | | | - LABORATORY | | | | + + + + + Comprehensive Metabolic Panel (07/06/2018 4:34 AM PDT) + + + + + + | Component | Value | Ref Range | Performed | Pathologist | | | | | At | Signature | + + + + + + | Na | 140 | 136 - 145 | [facility] | | | | | mmol/L | [facility] | | | | | | [facility] | | | | | | [facility] - | | | | | | LABORATORY | | + + + + + + | K | 3.6 | 3.4 - 5.1 | [facility] | | | | | mmol/L | [facility] | | | | | | [facility] | | | | | | [facility] - | | | | | | LABORATORY | | + + + + + + | Cl | 108 (H) | 98 - 107 mmol/L | [facility] | | | | | | [facility] | | [facility] | | [facility] | | | | | | [facility] - | | | | | | LABORATORY | | + + + + + + | CO2 | 24 | 20 - 31 mmol/L | [facility] | | | | | | [facility] | | | | | | [facility] | | | | | | [facility] - | | | | | | LABORATORY | | + + + + + + | Anion Gap | 8 | 3 - 16 mmol/L | [facility] | | | | | | [facility] | | [facility] | | [facility] | | | | | | [facility] - | | | | | | LABORATORY | | + + + + + + | Glucose | 118 (H) | 60 - 106 mg/dL | [facility] | | | | | | [facility] | | | | | | [facility] | | | | | | [facility] - | | | | | | LABORATORY | | + + + + + + | BUN | 12 | 9 - 23 mg/dL | [facility] | | | | | | [facility] | | | [facility] | [facility] | | | | | | [facility] - | | | | | | LABORATORY | | + + + + + + | Creatinine | 0.83 | 0.70 - 1.30 | [facility] | | | | | mg/dL | [facility] | | | [facility] | [facility] | | | | | | [facility] - | | | | | | LABORATORY | | + + + + + + | eGFR, | >60Comment: GLOMERULAR | >=60 | [facility] | | | non- | FILTRATION | mL/min/1.73m2 | [facility] | | | Filipino | RATE,ESTIMATED | | MEDICAL | | | | mL/min/1.42a6Xbug than | | CENTER - | | | | 60 Chronic kidney | | LABORATORY | | | | disease,if found over a | | | | | | 3-month period.Less than | | | | | | 15 Kidney failureFor | | | | | | | | | | | | Americans,multiply the | | | | | | calculated GFR by 1.21. | | | | | | | | | | + + + + + + | Calcium | 9.0 | 8.7 - 10.4 | [facility] | | | | | mg/dL | [facility] | | | [facility] | [facility] | | | | | | [facility] - | | | | | | LABORATORY | | + + + + + + | Albumin | 4.2 | 3.2 - 4.8 g/dL | [facility] | | | | | | [facility] | | | | | | [facility] | | | | | | [facility] - | | | | | | LABORATORY | | + + + + + + | Bilirubin | 0.6 | 0.3 - 1.2 mg/dL | [facility] | | | Total | | | [facility] | | | | | | [facility] | | | | | | [facility] - | | | | | | LABORATORY | | + + + + + + | Total | 6.2 | 5.7 - 8.2 g/dL | [facility] | | | Protein | | | [facility] | | | | | | [facility] | | | | | | CENTER - | | | | | | LABORATORY | | + + + + + + | AST | 38 (H) | 0 - 34 U/L | [facility] | | | | | | [facility] | | | | | | [facility] | | | | | | CENTER - | | | | | | LABORATORY | | + + + + + + | ALT | 74 (H) | 10 - 49 U/L | [facility] | | | | | | [facility] | | | | | | [facility] | | | | | | C[facility] - | | | | | | LABORATORY | | + + + + + + | Alkaline | 38 (L) | 46 - 116 U/L | [facility] | | | Phosphatase | | | [facility] | | | | | | [facility] | | | | | | CENTER - | | | | | | LABORATORY | | + + + + + + | Globulin | 2.0 (L) | 2.1 - 3.8 g/dL | [facility] | | | | | | [facility] | | | | | | [facility] | | | | | | CENTER - | | | | | | LABORATORY | | + + + + + + | Albumin/Bernice | 2.1 (H) | 0.8 - 1.9 | [facility] | | | bulin Ratio | | | [facility] | | | | | | [facility] | | | | | | CENTER - | | | | | | LABORATORY | | + + + + + + | BUN/Creatin | 14.5 | | [facility] | | | ine Ratio | | | [facility] | | | | | | [facility] | | | | | | CENTER - | | | | | | LABORATORY | | + + + + + + + + | Specimen | + + | Blood | + + + + + + + | Performing | Address | City/State/Zipcode | Phone Number | | Organization | | | | + + + + + | [facility] | [address] | [place] | [phone] | | [facility] | | [address] | | | - LABORATORY | | | | + + + + + Magnesium (07/05/2018 5:16 AM PDT) + +-------+ + + + | Component | Value | Ref Range | Performed | Pathologist | | | | | At | Signature | + +-------+ + + + | Magnesium | 2.2 | 1.6 - 2.6 mg/dL | [facility] | | | | | | [facility] | | | [facility] | | | | | | CENTER - | | | | | | LABORATORY | | + +-------+ + + + + + | Specimen | + + | Blood | + + + + + + + | Performing | Address | City/State/Zipcode | Phone Number | | Organization | | | | + + + + + | [facility] | [address] | [place] | [phone] | | [facility] | | [address] | | | - LABORATORY | | | | + + + + + CBC with Differential (07/05/2018 5:16 AM PDT) + +-------+ + + + | Component | Value | Ref Range | Performed | Pathologist | | | | | At | Signature | + +-------+ + + + | White Blood | 8.2 | 4.0 - 11.0 K/uL | [facility] | | | Cells | | | [facility] | | | | | | [facility] | | | | | | CENTER - | | | | | | LABORATORY | | + +-------+ + + + | Red Blood | 4.94 | 4.30 - 5.70 | [facility] | | | Cells | | M/uL | [facility] | | | | | [facility] | | | | | | CENTER - | | | | | | LABORATORY | | + +-------+ + + + | Hemoglobin | 15.1 | 13.5 - 18.0 | [facility] | | | | | g/dL | [facility] | | | | | | MEDICAL | | | | | | CENTER - | | | | | | LABORATORY | | + +-------+ + + + | Hematocrit | 43.8 | 40.0 - 51.0 % | [facility] | | | | | | [facility] | | | | | | [facility] | | | | | | CENTER - | | | | | | LABORATORY | | + +-------+ + + + | MCV | 88.7 | 83.0 - 101.0 fL | [facility] | | | | | | [facility] | | | | | | [facility] | | | | | | CENTER - | | | | | | LABORATORY | | + +-------+ + + + | MCH | 30.6 | 28.0 - 35.0 pg | [facility] | | | | | | [facility] | | | | | | [facility]ICAL | | | | | | CENTER - | | | | | | LABORATORY | | + +-------+ + + + | MCHC | 34.5 | 32.0 - 36.0 | [facility] | | | | | g/dL | [facility] | | | | | | MEDICAL | | | | | | CENTER - | | | | | | LABORATORY | | + +-------+ + + + | RDW-CV | 12.5 | <15.0 % | [facility] | | | | | | [facility] | | | | | | [facility] | | | | | | CENTER - | | | | | | LABORATORY | | + +-------+ + + + | [facility]-SD | 40.8 | 35.1 - 46.3 fL | [facility] | | | | | | [facility] | | | | | | [facility] | | | | [facility] | [facility] - | | | | | | LABORATORY | | + +-------+ + + + | Platelet | 207 | 140 - 440 K/uL | [facility] | | | Count | | | [facility] | | | | | | [facility] | | | | | | [facility] - | | | | | | LABORATORY | | + +-------+ + + + | MPV | 10.4 | 6.5 - 12.4 fL | [facility] | | | | | | [facility] | | | | | | [facility] | | | | | | [facility] - | | | | | | LABORATORY | | + +-------+ + + + | % | 55.9 | 45.0 - 82.0 % | [facility] | | | Neutrophils | | | [facility] | | | | | | [facility] | | | | | | CENTER - | | | | | | LABORATORY | | + +-------+ + + + | % | 32.8 | 20.0 - 45.0 % | [facility] | | | Lymphocytes | | | [facility] | | | | | | [facility] | | | | | | CENTER - | | | | | | LABORATORY | | + +-------+ + + + | % Monocytes | 6.7 | 4.0 - 12.0 % | [facility] | | | | | | [facility] | | | | | | [facility] | | | | | | [facility]ENTER - | | | | | | LABORATORY | | + +-------+ + + + | % | 3.8 | 0.0 - 5.0 % | [facility] | | | Eosinophils | | | [facility] | | | | | | [facility] | | | | | | CENTER - | | | | | | LABORATORY | | + +-------+ + + + | % Basophils | 0.6 | 0.0 - 1.0 % | [facility] | | | | | | [facility] | | | | | | [facility] | | | | | | C[facility] - | | | | | | LABORATORY | | + +-------+ + + + | % Immature | 0.2 | 0.0 - 0.4 % | [facility] | | | Granulocyte | | | [facility] | | | s | | | MEDICAL | | | | | | CENTER - | | | | | | LABORATORY | | + +-------+ + + + | Absolute | 4.59 | 1.80 - 8.50 | [facility] | | | Neutrophils | | K/uL | [facility] | | | | | | [facility] | | | | | | CENTER - | | | | | | LABORATORY | | + +-------+ + + + | Absolute | 2.70 | 0.60 - 3.20 | [facility] | | | Lymphocytes | | K/uL | [facility] | | | | | | [facility] | | | | | | CENTER - | | | | | | LABORATORY | | + +-------+ + + + | Absolute | 0.55 | 0.00 - 1.00 | [facility] | | | Monocytes | | K/uL | [facility] | [facility] | [facility] | | | | | | [facility] - | | | | | | LABORATORY | | + +-------+ + + + | Absolute | 0.31 | 0.00 - 0.40 | [facility] | | | Eosinophils | | K/uL | [facility] | | | [facility] | [facility] | | | | | | CENTER - | | | | | | LABORATORY | | + +-------+ + + + | Absolute | 0.05 | 0.00 - 0.10 | [facility] | | | Basophils | | K/uL | [facility] | | | | | | [facility] | | | | | | CENTER - | | | | | | LABORATORY | | + +-------+ + + + | Absolute | 0.02 | 0.00 - 0.03 | [facility] | | | Immature | | K/uL | [facility] | | | Granulocyte | | | MEDICAL | | | s | | | CENTER - | | | | | | LABORATORY | | + +-------+ + + + | % nRBC | 0 | 0 - 2 per 100 | [facility] | | | | | WBCs | [facility] | | [facility] | | | | | | CENTER - | | | | | | LABORATORY | | + +-------+ + + + | Absolute | 0.00 | 0.00 - 0.01 | [facility] | | | nRBC | | K/uL | [facility] | [facility] | [facility] | | | | | | CENTER - | | | | | | LABORATORY | | + +-------+ + + + + + | Specimen | + + | Blood | + + + + + + + | Performing | Address | City/State/Zipcode | Phone Number | | Organization | | | | + + + + + | [facility] | [address] | [place] | [phone] | | [facility] | | [address] | | | - LABORATORY | | | | + + + + + Basic Metabolic Panel (07/05/2018 5:16 AM PDT) + + + + + + | Component | Value | Ref Range | Performed | Pathologist | | | | | At | Signature | + + + + + + | Na | 140 | 136 - 145 | [facility] | | | | | mmol/L | [facility] | | | | | | [facility] | | | | | | [facility] - | | | | | | LABORATORY | | + + + + + + | K | 3.6 | 3.4 - 5.1 | [facility] | | | | | mmol/L | [facility] | | | | | | [facility] | | | | | | CENTER - | | | | | | LABORATORY | | + + + + + + | Cl | 106 | 98 - 107 mmol/L | [facility] | | | | | | [facility] | | | | | | [facility] | | | | | | CENTER - | | | | | | LABORATORY | | + + + + + + | CO2 | 26 | 20 - 31 mmol/L | [facility] | | | | | | [facility] | | | | | | [facility] | | | | | | CENTER - | | | | | | LABORATORY | | + + + + + + | Anion Gap | 8 | 3 - 16 mmol/L | [facility] | | | | | | [facility] | | | | | | [facility] | | | | | | CENTER - | | | | | | LABORATORY | | + + + + + + | Glucose | 130 (H) | 60 - 106 mg/dL | [facility] | | | | | | [facility] | [facility] | [facility] | [facility] | | | | | | CENTER - | | | | | | LABORATORY | | + + + + + + | BUN | 13 | 9 - 23 mg/dL | [facility] | | | | | | [facility] | | [facility] | [facility] | | | | | | CENTER - | | | | | | LABORATORY | | + + + + + + | Creatinine | 0.90 | 0.70 - 1.30 | [facility] | | | | | mg/dL | [facility] | | | | | | [facility] | | | | | | CENTER - | | | | | | LABORATORY | | + + + + + + | eGFR, | >60Comment: GLOMERULAR | >=60 | [facility] | | | non- | FILTRATION | mL/min/1.73m2 | [facility] | | | [place] | RATE,ESTIMATED | | MEDICAL | | | | mL/min/1.15k4Lasz than | | CENTER - | | | | 60 Chronic kidney | | LABORATORY | | | | disease,if found over a | | | | | | 3-month period.Less than | | | | | | 15 Kidney failureFor | | | | | | | | | | | | Americans,multiply the | | | | | | calculated GFR by 1.21. | | | | | | | | | | + + + + + + | Calcium | 9.0 | 8.7 - 10.4 | [facility] | | | | | mg/dL | [facility] | | | | | | MEDICAL | | | | | | CENTER - | | | | | | LABORATORY | | + + + + + + | BUN/Creatin | 14.4 | | [facility] | | | ine Ratio | | | [facility] | | | | | | MEDICAL | | | | | | CENTER - | | | | | | LABORATORY | | + + + + + + + + | Specimen | + + | Blood | + + + + + + + | Performing | Address | City/State/Zipcode | Phone Number | | Organization | | | | + + + + + | [facility] | [address] | [place] | [phone] | | [facility] | | [address] | | | - LABORATORY | | | | + + + + + Troponin I (07/05/2018 5:16 AM PDT) + + + + + + | Component | Value | Ref Range | Performed | Pathologist | | | | | At | Signature | + + + + + + | Troponin I | <0.01Comment: | <0.06 ng/mL | [facility] | | | | Comment:Reference | | [facility] | | | | Ranges: 0.00-0.06 = | | MEDICAL | | | | NORMAL >0.06 = | | CENTER - | | | | SUSPICIOUS FOR | | LABORATORY | | | | MYOCARDIAL DAMAGE NOTE: | | | | | | Values greater than | | | | | | 0.78 ng/mL have been | | | | | | shown to be strongly | | | | | | associated with acute | | | | | | myocardial infarction. | | | | | | [employer] | | | | | | [employer] (ACC) | | | | | | recommends a decision | | | | | | limit of 0.06 ng/mL for | | | | | | this assay. Results | | | | | | greater than 0.06 can | | | | | | reflect a pre-infarct | | | | | | acute coronary syndrome, | | | | | | but can also reflect | | | | | | myocardial necrosis or | | | | | | injury that is not due | | | | | | to coronary artery | | | | | | disease. Some of these | | | | | | causes are sepsis, | | | | | | hypocolemia, atrial | | | | | | fibrillation, heart | | | | | | failure, pulmonary | | | | | | embolism, myocarditis, | | | | | | myocardial contusion, | | | | | | and renal failure. The | | | | | | diagnosis of myocardial | | | | | | infarction should be | | | | | | based on a combination | | | | | | of the patient's | | | | | | clinical presentation | | | | | | and the clinical | | | | | | laboratory test results | | | | | | (especially serial | | | | | | troponin levels). | | | | + + + + + + + + | Specimen | + + | Blood | + + + + + + + | Performing | Address | City/State/Zipcode | Phone Number | | Organization | | | | + + + + + | [facility] | [address] | [place] | [phone] | | [facility] | | [address] | | | - LABORATORY | | | | + + + + + Troponin I (07/04/2018 11:36 PM PDT) + + + + + + | Component | Value | Ref Range | Performed | Pathologist | | | | | At | Signature | + + + + + + | Troponin I | <0.01Comment: | <0.06 ng/mL | [facility] | | | | Comment:Reference | | [facility] | | | | Ranges: 0.00-0.06 = | | MEDICAL | | | | NORMAL >0.06 = | | CENTER - | | | | SUSPICIOUS FOR | | LABORATORY | | | | MYOCARDIAL DAMAGE NOTE: | | | | | | Values greater than | | | | | | 0.78 ng/mL have been | | | | | | shown to be strongly | | | | | | associated with acute | | | | | | myocardial infarction. | | | | | | [employer] | | | | | | [employer] (ACC) | | | | | | recommends a decision | | | | | | limit of 0.06 ng/mL for | | | | | | this assay. Results | | | | | | greater than 0.06 can | | | | | | reflect a pre-infarct | | | | | | acute coronary syndrome, | | | | | | but can also reflect | | | | | | myocardial necrosis or | | | | | | injury that is not due | | | | | | to coronary artery | | | | | | disease. Some of these | | | | | | causes are sepsis, | | | | | | hypocolemia, atrial | | | | | | fibrillation, heart | | | | | | failure, pulmonary | | | | | | embolism, myocarditis, | | | | | | myocardial contusion, | | | | | | and renal failure. The | | | | | | diagnosis of myocardial | | | | | | infarction should be | | | | | | based on a combination | | | | | | of the patient's | | | | | | clinical presentation | | | | | | and the clinical | | | | | | laboratory test results | | | | | | (especially serial | | | | | | troponin levels). | | | | + + + + + + + + | Specimen | + + | Blood | + + + + + + + | Performing | Address | City/State/Zipcode | Phone Number | | Organization | | | | + + + + + | [facility] | [address] | [place], [place] | [phone] | | [facility] | | [address] | | | - LABORATORY | | | | + + + + + Troponin I (07/04/2018 5:07 PM PDT) + + + + + + | Component | Value | Ref Range | Performed | Pathologist | | | | | At | Signature | + + + + + + | Troponin I | <0.01Comment: | <0.06 ng/mL | [facility] | | | | Comment:Reference | | [facility] | | | | Ranges: 0.00-0.06 = | | MEDICAL | | | | NORMAL >0.06 = | | CENTER - | | | | SUSPICIOUS FOR | | LABORATORY | | | | MYOCARDIAL DAMAGE NOTE: | | | | | | Values greater than | | | | | | 0.78 ng/mL have been | | | | | | shown to be strongly | | | | | | associated with acute | | | | | | myocardial infarction. | | | | | | [employer] | | | | | | Cardiology (ACC) | | | | | | recommends a decision | | | | | | limit of 0.06 ng/mL for | | | | | | this assay. Results | | | | | | greater than 0.06 can | | | | | | reflect a pre-infarct | | | | | | acute coronary syndrome, | | | | | | but can also reflect | | | | | | myocardial necrosis or | | | | | | injury that is not due | | | | | | to coronary artery | | | | | | disease. Some of these | | | | | | causes are sepsis, | | | | | | hypocolemia, atrial | | | | | | fibrillation, heart | | | | | | failure, pulmonary | | | | | | embolism, myocarditis, | | | | | | myocardial contusion, | | | | | | and renal failure. The | | | | | | diagnosis of myocardial | | | | | | infarction should be | | | | | | based on a combination | | | | | | of the patient's | | | | | | clinical presentation | | | | | | and the clinical | | | | | | laboratory test results | | | | | | (especially serial | | | | | | troponin levels). | | | | + + + + + + + + | Specimen | + + | Blood | + + + + + + + | Performing | Address | City/State/Zipcode | Phone Number | | Organization | | | | + + + + + | [facility] | [address] | [place] | [phone] | | [facility] | | [address] | | | - LABORATORY | | | | + + + + + ECG 12 lead (07/04/2018 4:47 PM PDT) + + + + + + | Component | Value | Ref Range | Performed | Pathologist | | | | | At | Signature | + + + + + + | VENTRICULAR | 104 | BPM | [facility] | | | RATE EKG | | | | | + + + + + + | QRS | 94 | ms | [facility] | | | DURATION | | | | | + + + + + + | Q-T | 364 | ms | [facility] | | | INTERVAL | | | | | + + + + + + | Q-T | 478 | ms | [facility] | | | INTERVAL | | | | | | (CORRECTED) | | | | | + + + + + + | QRS AXIS | 36 | degrees | [facility] | | + + + + + + | T AXIS | 37 | degrees | [facility] | | + + + + + + | INTERPRETAT | Atrial fibrillation with | | [facility] | | | ION TEXT | rapid ventricular | | | | | | responseLow voltage | | | | | | QRSNonspecific ST and T | | | | | | wave abnormalityAbnormal | | | | | | ECGWhen compared with | | | | | | ECG of 03-JUL-2018 | | | | | | 11:14,Vent. rate has | | | | | | decreased BY 55 BPM | | | | | | Confirmed by MARK LEMUS, | | | | | | ALYSIA ([id number]) on | | | | | | 07/05/2018 6:40:10 AM | | | | + + + + + + + + | Specimen | + + | | + + + + + | Narrative | Performed At | + + + | | | + + + + +---------+ + + | Performing | Address | City/State/Zipcode | Phone Number | | Organization | | | | + +---------+ + + | [facility] | | | | + +---------+ + + Hepatic Function Panel (07/04/2018 3:48 AM PDT) + +---------+ + + + | Component | Value | Ref Range | Performed | Pathologist | | | | | At | Signature | + +---------+ + + + | Bilirubin | 1.1 | 0.3 - 1.2 mg/dL | [facility] | | | Total | | | [facility] | | | | | | MEDICAL | | | | | | CENTER - | | | | | | LABORATORY | | + +---------+ + + + | Total | 5.9 | 5.7 - 8.2 g/dL | [facility] | | | Protein | | | [facility] | | | | | | MEDICAL | | | | | | CENTER - | | | | | | LABORATORY | | + +---------+ + + + | Albumin | 4.0 | 3.2 - 4.8 g/dL | [facility] | | | | | | [facility] | | | | | | MEDICAL | | | | | | CENTER - | | | | | | LABORATORY | | + +---------+ + + + | AST | 28 | 0 - 34 U/L | [facility] | | | | | | [facility] | | | | | | MEDICAL | | | | | | CENTER - | | | | | | LABORATORY | | + +---------+ + + + | ALT | 56 (H) | 10 - 49 U/L | [facility] | | | | | | [facility] | | | | | | MEDICAL | | | | | | CENTER - | | | | | | LABORATORY | | + +---------+ + + + | Alkaline | 40 (L) | 46 - 116 U/L | [facility] | | | Phosphatase | | | [facility] | | | | | | MEDICAL | | | | | | CENTER - | | | | | | LABORATORY | | + +---------+ + + + | Globulin | 1.9 (L) | 2.1 - 3.8 g/dL | [facility] | | | | | | [facility] | | | | | | MEDICAL | | | | | | CENTER - | | | | | | LABORATORY | | + +---------+ + + + | Albumin/Bernice | 2.1 (H) | 0.8 - 1.9 | [facility] | | | bulin Ratio | | | [facility] | | | | | | MEDICAL | | | | | | CENTER - | | | | | | LABORATORY | | + +---------+ + + + | Bilirubin, | 0.30 | 0.00 - 0.30 | [facility] | | | Direct | | mg/dl | [facility] | | | | | | MEDICAL | | | | | | CENTER - | | | | | | LABORATORY | | + +---------+ + + + + + | Specimen | + + | Blood | + + + + + + + | Performing | Address | City/State/Zipcode | Phone Number | | Organization | | | | + + + + + | [facility] | [address] | [place] | [phone] | | [facility] | | [address] | | | - LABORATORY | | | | + + + + + Susan VAN (07/04/2018 3:48 AM PDT) + + + + + + | Component | Value | Ref Range | Performed | Pathologist | | | | | At | Signature | + + + + + + | Prothrombin | 14.3 (H) | 11.3 - 13.9 | [facility] | | | Time | | seconds | [facility] | | | | | | MEDICAL | | | | | | CENTER - | | | | | | LABORATORY | | + + + + + + | INR | 1.1Comment: Usual Oral | 0.9 - 1.1 | [facility] | | | | Anticoagulation Range: | | [facility] | | | | 2.0 - 3.0High | | MEDICAL | | | | Level Oral | | CENTER - | | | | Anticoagulation Range: | | LABORATORY | | | | 2.5 - 3.5 | | | | + + + + + + + + | Specimen | + + | Blood | + + + + + + + | Performing | Address | City/State/Zipcode | Phone Number | | Organization | | | | + + + + + | [facility] | [address] | [place] | [phone] | | [facility] | | [address] | | | - LABORATORY | | | | + + + + + Magnesium (07/04/2018 3:48 AM PDT) + +-------+ + + + | Component | Value | Ref Range | Performed | Pathologist | | | | | At | Signature | + +-------+ + + + | Magnesium | 2.0 | 1.6 - 2.6 mg/dL | [facility] | | | | | | [facility] | | | | | | MEDICAL | | | | | | CENTER - | | | | | | LABORATORY | | + +-------+ + + + + + | Specimen | + + | Blood | + + + + + + + | Performing | Address | City/State/Zipcode | Phone Number | | Organization | | | | + + + + + | [facility] | [address] | [place], [place] | [phone] | | [facility] | | [address] | | | - LABORATORY | | | | + + + + + CBC with Differential (07/04/2018 3:48 AM PDT) + + + + + + | Component | Value | Ref Range | Performed | Pathologist | | | | | At | Signature | + + + + + + | White Blood | 8.1 | 4.0 - 11.0 K/uL | [facility] | | | Cells | | | [facility] | | | | | | [facility]ICAL | | | | | | CENTER - | | | | | | LABORATORY | | + + + + + + | Red Blood | 5.03 | 4.30 - 5.70 | [facility] | | | Cells | | M/uL | [facility] | | | | | | MEDICAL | | | | | | CENTER - | | | | | | LABORATORY | | + + + + + + | Hemoglobin | 15.4 | 13.5 - 18.0 | [facility] | | | | | g/dL | [facility] | | | | | | [facility]ICAL | | | | | | CENTER - | | | | | | LABORATORY | | + + + + + + | Hematocrit | 44.6 | 40.0 - 51.0 % | [facility] | | | | | | [facility] | | | | | | MEDICAL | | | | | | CENTER - | | | | | | LABORATORY | | + + + + + + | MCV | 88.7 | 83.0 - 101.0 fL | [facility] | | | | | | [facility] | | | | | | MEDICAL | | | | | | CENTER - | | | | | | LABORATORY | | + + + + + + | MCH | 30.6 | 28.0 - 35.0 pg | [facility] | | | | | | [facility] | | | | | | MEDICAL | | | | | | CENTER - | | | | | | LABORATORY | | + + + + + + | MCHC | 34.5 | 32.0 - 36.0 | [facility] | | | | | g/dL | [facility] | | | | | | MEDICAL | | | | | | CENTER - | | | | | | LABORATORY | | + + + + + + | RDW-CV | 12.8 | <15.0 % | [facility] | | | | | | [facility] | | | | | | MEDICAL | | | | | | CENTER - | | | | | | LABORATORY | | + + + + + + | RDW-SD | 41.8 | 35.1 - 46.3 fL | [facility] | | | | | | [facility] | | | | | | MEDICAL | | | | | | CENTER - | | | | | | LABORATORY | | + + + + + + | Platelet | 217 | 140 - 440 K/uL | [facility] | | | Count | | | [facility] | | | | | | MEDICAL | | | | | | CENTER - | | | | | | LABORATORY | | + + + + + + | MPV | 10.6 | 6.5 - 12.4 fL | [facility] | | | | | | [facility] | | | | | | MEDICAL | | | | | | CENTER - | | | | | | LABORATORY | | + + + + + + | % | 51.7 | 45.0 - 82.0 % | [facility] | | | Neutrophils | | | [facility] | | | | | | MEDICAL | | | | | | CENTER - | | | | | | LABORATORY | | + + + + + + | % | 35.6 | 20.0 - 45.0 % | [facility] | | | Lymphocytes | | | [facility] | | | | | | MEDICAL | | | | | | CENTER - | | | | | | LABORATORY | | + + + + + + | % Monocytes | 6.9 | 4.0 - 12.0 % | [facility] | | | | | | [facility] | | | | | | MEDICAL | | | | | | CENTER - | | | | | | LABORATORY | | + + + + + + | % | 4.7 | 0.0 - 5.0 % | [facility] | | | Eosinophils | | | [facility] | | | | | | MEDICAL | | | | | | CENTER - | | | | | | LABORATORY | | + + + + + + | % Basophils | 0.6 | 0.0 - 1.0 % | [facility] | | | | | | [facility] | | | | | | MEDICAL | | | | | | CENTER - | | | | | | LABORATORY | | + + + + + + | % Immature | 0.5 (H)Comment: | 0.0 - 0.4 % | [facility] | | | Granulocyte | Preliminary studies have | | [facility] | | | s | indicated the IG% | | MEDICAL | | | | and/or IG# show promise | | CENTER - | | | | as an early indicator | | LABORATORY | | | | for infection. | | | | + + + + + + | Absolute | 4.21 | 1.80 - 8.50 | [facility] | | | Neutrophils | | K/uL | [facility] | | | | | | MEDICAL | | | | | | CENTER - | | | | | | LABORATORY | | + + + + + + | Absolute | 2.90 | 0.60 - 3.20 | [facility] | | | Lymphocytes | | K/uL | [facility] | | | | | | MEDICAL | | | | | | CENTER - | | | | | | LABORATORY | | + + + + + + | Absolute | 0.56 | 0.00 - 1.00 | [facility] | | | Monocytes | | K/uL | [facility] | | | | | | MEDICAL | | | | | | CENTER - | | | | | | LABORATORY | | + + + + + + | Absolute | 0.38 | 0.00 - 0.40 | [facility] | | | Eosinophils | | K/uL | [facility] | | | | | | MEDICAL | | | | | | CENTER - | | | | | | LABORATORY | | + + + + + + | Absolute | 0.05 | 0.00 - 0.10 | [facility] | | | Basophils | | K/uL | [facility] | | | | | | MEDICAL | | | | | | CENTER - | | | | | | LABORATORY | | + + + + + + | Absolute | 0.04 (H) | 0.00 - 0.03 | [facility] | | | Immature | | K/uL | [facility] | | | Granulocyte | | | MEDICAL | | | s | | | CENTER - | | | | | | LABORATORY | | + + + + + + | % nRBC | 0 | 0 - 2 per 100 | [facility] | | | | | WBCs | [facility] | | | | | | MEDICAL | | | | | | CENTER - | | | | | | LABORATORY | | + + + + + + | Absolute | 0.00 | 0.00 - 0.01 | [facility] | | | nRBC | | K/uL | [facility] | | | | | | MEDICAL | | | | | | CENTER - | | | | | | LABORATORY | | + + + + + + + + | Specimen | + + | Blood | + + + + + + + | Performing | Address | City/State/Zipcode | Phone Number | | Organization | | | | + + + + + | [facility] | [address] | [place], [place] | [phone] | | [facility] | | [address] | | | - LABORATORY | | | | + + + + + Basic Metabolic Panel (07/04/2018 3:48 AM PDT) + + + + + + | Component | Value | Ref Range | Performed | Pathologist | | | | | At | Signature | + + + + + + | Na | 139 | 136 - 145 | [facility] | | | | | mmol/L | [facility] | | | | | | MEDICAL | | | | | | CENTER - | | | | | | LABORATORY | | + + + + + + | K | 3.4 | 3.4 - 5.1 | [facility] | | | | | mmol/L | [facility] | | | | | | MEDICAL | | | | | | CENTER - | | | | | | LABORATORY | | + + + + + + | Cl | 107 | 98 - 107 mmol/L | [facility] | | | | | | [facility] | | | | | | [facility] | | | | | | CENTER - | | | | | | LABORATORY | | + + + + + + | CO2 | 23 | 20 - 31 mmol/L | [facility] | | | | | | [facility] | | | | | | [facility] | | | | | | CENTER - | | | | | | LABORATORY | | + + + + + + | Anion Gap | 9 | 3 - 16 mmol/L | [facility] | | | | | | [facility] | | | | | | [facility] | | | | | | C[facility] - | | | | | | LABORATORY | | + + + + + + | Glucose | 117 (H) | 60 - 106 mg/dL | [facility] | | | | | | [facility] | | | | | | [facility] | | | | | | C[facility] - | | | | | | LABORATORY | | + + + + + + | BUN | 17 | 9 - 23 mg/dL | [facility] | | | | | | [facility] | | | [facility] | | C[facility] - | | | | | | LABORATORY | | + + + + + + | Creatinine | 0.93 | 0.70 - 1.30 | [facility] | | | | | mg/dL | [facility] | | | | | | CENTER - | | | | | | LABORATORY | | + + + + + + | eGFR, | >60Comment: GLOMERULAR | >=60 | [facility] | | | non- | FILTRATION | mL/min/1.73m2 | [facility] | | | [place] | RATE,ESTIMATED | | MEDICAL | | | | mL/min/1.04q4Qont than | | CENTER - | | | | 60 Chronic kidney | | LABORATORY | | | | disease,if found over a | | | | | | 3-month period.Less than | | | | | | 15 Kidney failureFor | | | | | | | | | | | | Americans,multiply the | | | | | | calculated GFR by 1.21. | | | | | | | | | | + + + + + + | Calcium | 8.9 | 8.7 - 10.4 | [facility] | | | | | mg/dL | [facility] | [facility] | [facility] | [facility] | | | | | | CENTER - | | | | | | LABORATORY | | + + + + + + | BUN/Creatin | 18.3 | | [facility] | | | ine Ratio | | | [facility] | | | | [facility] | [facility] | | | | | | CENTER - | | | | | | LABORATORY | | + + + + + + + + | Specimen | + + | Blood | + + + + + + + | Performing | Address | City/State/Zipcode | Phone Number | | Organization | | | | + + + + + | [facility] | [address] | [place] | [phone] | | [facility] | | [address] | | | - LABORATORY | | | | + + + + + Troponin I (07/03/2018 11:05 PM PDT) + + + + + + | Component | Value | Ref Range | Performed | Pathologist | | | | | At | Signature | + + + + + + | Troponin I | <0.01Comment: | <0.06 ng/mL | [facility] | | | | Comment:Reference | | [facility] | | | | Ranges: 0.00-0.06 = | | MEDICAL | | | | NORMAL >0.06 = | | CENTER - | | | | SUSPICIOUS FOR | | LABORATORY | | | | MYOCARDIAL DAMAGE NOTE: | | | | | | Values greater than | | | | | | 0.78 ng/mL have been | | | | | | shown to be strongly | | | | | | associated with acute | | | | | | myocardial infarction. | | | | | | [employer] | | | | | | [employer] ([employer]) | | | | | | recommends a decision | | | | | | limit of 0.06 ng/mL for | | | | | | this assay. Results | | | | | | greater than 0.06 can | | | | | | reflect a pre-infarct | | | | | | acute coronary syndrome, | | | | | | but can also reflect | | | | | | myocardial necrosis or | | | | | | injury that is not due | | | | | | to coronary artery | | | | | | disease. Some of these | | | | | | causes are sepsis, | | | | | | hypocolemia, atrial | | | | | | fibrillation, heart | | | | | | failure, pulmonary | | | | | | embolism, myocarditis, | | | | | | myocardial contusion, | | | | | | and renal failure. The | | | | | | diagnosis of myocardial | | | | | | infarction should be | | | | | | based on a combination | | | | | | of the patient's | | | | | | clinical presentation | | | | | | and the clinical | | | | | | laboratory test results | | | | | | (especially serial | | | | | | troponin levels). | | | | + + + + + + + + | Specimen | + + | Blood | + + + + + + + | Performing | Address | City/State/Zipcode | Phone Number | | Organization | | | | + + + + + | [facility] | [address] | [place] | [phone] | | [facility] | | [address] | | | - LABORATORY | | | | + + + + + Troponin I (07/03/2018 5:19 PM PDT) + + + + + + | Component | Value | Ref Range | Performed | Pathologist | | | | | At | Signature | + + + + + + | Troponin I | <0.01Comment: | <0.06 ng/mL | [facility] | | | | Comment:Reference | | [facility] | | | | Ranges: 0.00-0.06 = | | MEDICAL | | | | NORMAL >0.06 = | | CENTER - | | | | SUSPICIOUS FOR | | LABORATORY | | | | MYOCARDIAL DAMAGE NOTE: | | | | | | Values greater than | | | | | | 0.78 ng/mL have been | | | | | | shown to be strongly | | | | | | associated with acute | | | | | | myocardial infarction. | | | | | | The [employer] | | | | | | Cardiology (ACC) | | | | | | recommends a decision | | | | | | limit of 0.06 ng/mL for | | | | | | this assay. Results | | | | | | greater than 0.06 can | | | | | | reflect a pre-infarct | | | | | | acute coronary syndrome, | | | | | | but can also reflect | | | | | | myocardial necrosis or | | | | | | injury that is not due | | | | | | to coronary artery | | | | | | disease. Some of these | | | | | | causes are sepsis, | | | | | | hypocolemia, atrial | | | | | | fibrillation, heart | | | | | | failure, pulmonary | | | | | | embolism, myocarditis, | | | | | | myocardial contusion, | | | | | | and renal failure. The | | | | | | diagnosis of myocardial | | | | | | infarction should be | | | | | | based on a combination | | | | | | of the patient's | | | | | | clinical presentation | | | | | | and the clinical | | | | | | laboratory test results | | | | | | (especially serial | | | | | | troponin levels). | | | | + + + + + + + + | Specimen | + + | Blood | + + + + + + + | Performing | Address | City/State/Zipcode | Phone Number | | Organization | | | | + + + + + | [facility] | [address] | [place] | [phone] | | [facility] | | [address] | | | - LABORATORY | | | | + + + + + ECHO Complete (07/03/2018 4:46 PM PDT) + +---------+ + + + | Component | Value | Ref Range | Performed | Pathologist | | | | | At | Signature | + +---------+ + + + | BASELINE | 120/72 | mmHg | [facility] | | | BLOOD | | | | | | PRESSURE | | | | | + +---------+ + + + | Patient | 220 lbs | | [facility] | | | Weight | | | | | | (lbs) | | | | | + +---------+ + + + | Patient | 72 in | | [facility] | | | Height | | | | | + +---------+ + + + | LVIDd | 5.37 | cm | [facility] | | + +---------+ + + + | FS | 26 | % | [facility] | | + +---------+ + + + | LA volume | 35.96 | mL | [facility] | | + +---------+ + + + | Ascending | 4.1 | cm | [facility] | | | aorta | | | | | + +---------+ + + + | Aortic arch | 2.95 | cm | [facility] | | + +---------+ + + + | AV mean | 3.94 | mmHg | [facility] | | | gradient | | | | | + +---------+ + + + | LVOT peak | 81.74 | cm/s | [facility] | | | kristen | | | | | + +---------+ + + + | LVOT peak | 15.31 | cm | [facility] | | | VTI | | | | | + +---------+ + + + | AV peak kristen | 120 | cm/s | [facility] | | + +---------+ + + + | AV VTI | 22.41 | cm | [facility] | | + +---------+ + + + | AV peak | 5.76 | mmHg | [facility] | | | gradient | | | | | + +---------+ + + + | LA Volume | 16 | mL/m2 | [facility] | | | Index | | | | | + +---------+ + + + | AV LVOT | 2.67 | mmHg | [facility] | | | Peak | | | | | | Gradient | | | | | + +---------+ + + + | AV LVOT | 1.53 | mmHg | [facility] | | | Mean | | | | | | Gradient | | | | | + +---------+ + + + | TR Peak | 20 | mmHg | [facility] | | | Gradient | | | | | + +---------+ + + + | TR Velocity | 223.91 | cm | [facility] | | + +---------+ + + + | LV | 6.37 | cm | [facility] | | | Diastolic | | | | | | Length 4C | | | | | + +---------+ + + + | LV Systolic | 10.3 | cm2 | [facility] | | | Area PSAX | | | | | + +---------+ + + + | RV | 2.71 | cm | [facility] | | | Diastolic | | | | | | Basal | | | | | | Diameter | | | | | + +---------+ + + + | LV | 62 | % | [facility] | | | Watts's | | | | | | Biplane EF | | | | | + +---------+ + + + | AV | 49.73 | msec | [facility] | | | Acceleratio | | | | | | n Time | | | | | + +---------+ + + + | LV ED | 61.2 | ml | [facility] | | | Volume | | | | | | (Watts's) | | | | | + +---------+ + + + | LV ED | 28 | ml/m2 | [facility] | | | Volume | | | | | | Index | | | | | + +---------+ + + + | LV ES | 23.11 | ml | [facility] | | | Volume | | | | | + +---------+ + + + | LVOT Mean | 55.99 | cm/s | [facility] | | | Velocity | | | | | + +---------+ + + + | AV Mean | 96.57 | cm/s | [facility] | | | Velocity | | | | | + +---------+ + + + | RA Area | 19.07 | cm2 | [facility] | | + +---------+ + + + | LA/Aorta | 1.08 | | [facility] | | | Ratio | | | | | + +---------+ + + + | LA Area | 12.58 | cm2 | [facility] | | + +---------+ + + + | LA Major | 0.2241 | cm | [facility] | | + +---------+ + + + | LV ES | 10 | ml/m2 | [facility] | | | Volume | | | | | | Index | | | | | + +---------+ + + + | LV Area | 16.98 | cm2 | [facility] | | | Diastolic | | | | | + +---------+ + + + | Heart Rate | 124 | | [facility] | | + +---------+ + + + | Aortic Root | 3.8 | cm | [facility] | | | Diameter | | | | | + +---------+ + + + | IVS | 1.1 | cm | [facility] | | | Diastolic | | | | | | Thickness | | | | | | MM | | | | | + +---------+ + + + | LVPW | 1 | cm | [facility] | | | Diastolic | | | | | | Thickness | | | | | | MM | | | | | + +---------+ + + + | IVS | 1.74 | cm | [facility] | | | Systolic | | | | | | Thickness | | | | | | MM | | | | | + +---------+ + + + | LV Systolic | 3.95 | cm | [facility] | | | Diameter | | | | | | MM | | | | | + +---------+ + + + | LVPW | 1.56 | cm | [facility] | | | Systolic | | | | | | Thickness | | | | | | MM | | | | | + +---------+ + + + | AV Cusp | 2.17 | cm | [facility] | | | Seperation | | | | | | MM | | | | | + +---------+ + + + | LA Systolic | 4.12 | cm | [facility] | | | Diameter | | | | | | MM | | | | | + +---------+ + + + | TAPSE | 1.64 | cm | [facility] | | + +---------+ + + + | LVEF-TTE | 62 | | [facility] | | | TRANSTHORAC | | | | | | IC ECHO | | | | | + +---------+ + + + + + | Specimen | + + | | + + + + --+ | Narrative | Performed At | + + --+ | Transthoracic | [facility] | | Echocardiography Report (TTE) Demographics Patient Name PIERRE | | | SAUMYA Room Number 459 | | | JUNE Patient Number [id number] Date of Study | | | 07/03/2018 Visit Number [id number] Accession | | | [id number] Referring Physician SANTANA CASANOVA Number | | | 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 Procedure dateDate: 07/03/2018Start: | | | 04:17 PM Height: 72 inchesWeight: 220 poundsBSA: 2.22 m^2BMI: 29.84 | | | kg/m^2Rhythm: Atrial fibrillationHR: 90 bpm ConclusionsSummaryLeft | | | ventricle is normal in size and function. Ejection fraction | | | isestimated at 62%.Mildly thickened mitral valve with mild | | | regurgitation.Structurally normal tricuspid valve with mild | | | insufficiency and peakvelocity consistent with normal pulmonary | | | pressures.Left atrium is mildly enlarged.Aortic root is mildly | | | enlarged. | | | Signature | | | | | | PM | | | -------- FindingsMitral ValveMildly thickened mitral valve with mild | | | regurgitation.Aortic ValveAortic valve is trileaflet without | | | significant stenosis or regurgitation.Tricuspid ValveStructurally | | | normal tricuspid valve with mild insufficiency and peakvelocity | | | consistent with normal pulmonary pressures.Pulmonic ValveNormal | | | pulmonic valve structure and function. Normal pulmonary valve andRVOT | | | flow by color and Doppler flow imaging.Left AtriumLeft atrium is | | | mildly enlarged.Left VentricleLeft ventricle is normal in size and | | | function. Ejection fraction isestimated at 62%.Right AtriumNormal | | | right atrial size.Right VentricleNormal right ventricular size.Right | | | ventricle global systolic function is normal.TAPSE = 1.6 | | | cm.Pericardial EffusionNo evidence of pericardial effusion.Pleural | | | EffusionNo evidence of pleural effusion.MiscellaneousAortic root is | | | mildly enlarged. Valves Aortic Valve Peak Velocity: 120 cm/s | | | Mean Gradient: 3.94 mmHg Peak Gradient: 5.76 mmHg | | | Tricuspid Valve TR Velocity: 223.91 cm/s LVOT Peak Velocity: 81.74 | | | cm/s Structures Left Atrium LA A/P Dimension: 4.12 cm | | | LA Area: 12.58 cm^2 LA/Aorta:1.08 | | | LA Volume: 35.96 ml LA Vol/BSA Index: 16 mL/m^2 LA | | | Major:0.2241 Left Ventricle Diastolic Dimension: 5.37 cm | | | Systolic Dimension: 3.95 cm Septum Diastolic: 1.1 cm PW Diastolic: 1 | | | cm EF [id number]% EF Calculated: 62% Right Atrium | | | RA Area: 19.07 cm^2 Right Ventrical TAPSE: 1.64 cm | | | Miscellaneous Aorta Aortic Root: 3.8 cm Ascending Aorta: 4.1 cm | | | 07/04/2018 02:00 PM | | | | | | | | |Findings | | |Mitral Valve | | |Mildly thickened mitral valve with mild regurgitation. | | |Aortic Valve | | |Aortic valve is trileaflet without significant stenosis or regurgitation. | | |Tricuspid Valve | | |Structurally normal tricuspid valve with mild insufficiency and peak | | |velocity consistent with normal pulmonary pressures. | | |Pulmonic Valve | | |Normal pulmonic valve structure and function. Normal pulmonary valve and | | |RVOT flow by color and Doppler flow imaging. | | |Left Atrium | | |Left atrium is mildly enlarged. | | |Left Ventricle | | |Left ventricle is normal in size and function. Ejection fraction is | | |estimated at 62%. | | |Right Atrium | | |Normal right atrial size. | | |Right Ventricle | | |Normal right ventricular size. | | |Right ventricle global systolic function is normal. | | |TAPSE = 1.6 cm. | | |Pericardial Effusion | | |No evidence of pericardial effusion. | | |Pleural Effusion | | |No evidence of pleural effusion. | | |Miscellaneous | | |Aortic root is mildly enlarged. | | | | | |Valves | | | | | | Aortic Valve | | | | | | Peak Velocity: 120 cm/s Mean Gradient: 3.94 mmHg | | | Peak Gradient: 5.76 mmHg | | | | | | Tricuspid Valve | | | | | | TR Velocity: 223.91 cm/s | | | | | | LVOT | | | | | | Peak Velocity: 81.74 cm/s | | | | | |Structures | | | | | | Left Atrium | | | | | | LA A/P Dimension: 4.12 cm LA Area: 12.58 cm^2 | | | LA/Aorta:1.08 LA Volume: 35.96 ml | | | LA Vol/BSA Index: 16 mL/m^2 | | | LA Major:0.2241 | | | | | | Left Ventricle | | | | | | Diastolic Dimension: 5.37 cm Systolic Dimension: 3.95 cm | | | Septum Diastolic: 1.1 cm | | | PW Diastolic: 1 cm | | | EF Cezhzutol17% | | | EF Calculated: 62% | | | | | | Right Atrium | | | | | | RA Area: 19.07 cm^2 | | | | | | Right Ventrical | | | | | | TAPSE: 1.64 cm | | | | | | Miscellaneous | | | | | | Aorta | | | | | | Aortic Root: 3.8 cm | | | Ascending Aorta: 4.1 cm | | | | | + + --+ + + | Procedure Note | + + | Casandra, Rad Results In - 07/04/2018 2:01 PM PDT Transthoracic Echocardiography Report | | (TTE) Demographics Patient Name PIERRE KERNS Room Number 459 | | JUNE Patient Number [id number] Date of Study 07/03/2018 Visit | | Number [id number] Referring Physician SANTANA | | EDILBERTO Number 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 Ejection fraction isestimated at 62%.Mildly thickened mitral valve | | with mild regurgitation.Structurally normal tricuspid valve with mild insufficiency and | | peakvelocity consistent with normal pulmonary pressures.Left atrium is mildly | | enlarged.Aortic root is mildly | | enlarged.Signature | | ------ | | 02:00 | | PM FindingsMi | | tral ValveMildly thickened mitral valve with mild regurgitation.Aortic ValveAortic valve | | is trileaflet without significant stenosis or regurgitation.Tricuspid ValveStructurally | | normal tricuspid valve with mild insufficiency and peakvelocity consistent with normal | | pulmonary pressures.Pulmonic ValveNormal pulmonic valve structure and function. Normal | | pulmonary valve andRVOT flow by color and Doppler flow imaging.Left AtriumLeft atrium is | | mildly enlarged.Left VentricleLeft ventricle is normal in size and function. Ejection | | fraction isestimated at 62%.Right AtriumNormal right atrial size.Right VentricleNormal | | right ventricular size.Right ventricle global systolic function is normal.TAPSE = 1.6 | | cm.Pericardial EffusionNo evidence of pericardial effusion.Pleural EffusionNo evidence | | of pleural effusion.MiscellaneousAortic root is mildly enlarged.Valves Aortic Valve Peak | | Velocity: 120 cm/s Mean Gradient: 3.94 mmHg Peak Gradient: 5.76 mmHg | | Tricuspid Valve TR Velocity: 223.91 cm/s LVOT Peak Velocity: 81.74 cm/sStructures Left | | Atrium LA A/P Dimension: 4.12 cm LA Area: 12.58 cm^2 LA/Aorta:1.08 | | LA Volume: 35.96 ml LA Vol/BSA Index: 16 mL/m^2 LA Major:0.2241 | | Left Ventricle Diastolic Dimension: 5.37 cm Systolic Dimension: 3.95 cm Septum | | Diastolic: 1.1 cm PW Diastolic: 1 cm EF Nbrdfbqni37% EF Calculated: 62% Right Atrium | | RA Area: 19.07 cm^2 Right Ventrical TAPSE: 1.64 cm Miscellaneous Aorta Aortic | | Root: 3.8 cm Ascending Aorta: 4.1 cm | |Summary | |Left ventricle is normal in size and function. Ejection fraction is | |estimated at 62%. | |Mildly thickened mitral valve with mild regurgitation. | |Structurally normal tricuspid valve with mild insufficiency and peak | |velocity consistent with normal pulmonary pressures. | |Left atrium is mildly enlarged. | |Aortic root is mildly enlarged. | | | |Signature | | | | Electronically signed by USHA OCHOA MD(Interpreting physician) on | | 07/04/2018 02:00 PM | | | | | |Findings | |Mitral Valve | |Mildly thickened mitral valve with mild regurgitation. | |Aortic Valve | |Aortic valve is trileaflet without significant stenosis or regurgitation. | |Tricuspid Valve | |Structurally normal tricuspid valve with mild insufficiency and peak | |velocity consistent with normal pulmonary pressures. | |Pulmonic Valve | |Normal pulmonic valve structure and function. Normal pulmonary valve and | |RVOT flow by color and Doppler flow imaging. | |Left Atrium | |Left atrium is mildly enlarged. | |Left Ventricle | |Left ventricle is normal in size and function. Ejection fraction is | |estimated at 62%. | |Right Atrium | |Normal right atrial size. | |Right Ventricle | |Normal right ventricular size. | |Right ventricle global systolic function is normal. | |TAPSE = 1.6 cm. | |Pericardial Effusion | |No evidence of pericardial effusion. | |Pleural Effusion | |No evidence of pleural effusion. | |Miscellaneous | |Aortic root is mildly enlarged. | | | |Valves | | | | Aortic Valve | | | | Peak Velocity: 120 cm/s Mean Gradient: 3.94 mmHg | | Peak Gradient: 5.76 mmHg | | | | Tricuspid Valve | | | | TR Velocity: 223.91 cm/s | | | | LVOT | | | | Peak Velocity: 81.74 cm/s | | | |Structures | | | | Left Atrium | | | | LA A/P Dimension: 4.12 cm LA Area: 12.58 cm^2 | | LA/Aorta:1.08 LA Volume: 35.96 ml | | LA Vol/BSA Index: 16 mL/m^2 | | LA Major:0.2241 | | | | Left Ventricle | | | | Diastolic Dimension: 5.37 cm Systolic Dimension: 3.95 cm | | Septum Diastolic: 1.1 cm | | PW Diastolic: 1 cm | | EF Zmkiltudo45% | | EF Calculated: 62% | | | | Right Atrium | | | | RA Area: 19.07 cm^2 | | | | Right Ventrical | | | | TAPSE: 1.64 cm | | | | Miscellaneous | | | | Aorta | | | | Aortic Root: 3.8 cm | | Ascending Aorta: 4.1 cm | + + + +---------+ + + | Performing | Address | City/State/Zipcode | Phone Number | | Organization | | | | + +---------+ + + | [facility] | | | | + +---------+ + + Culture, MRSA (07/03/2018 4:09 PM PDT) + + + + + + | Component | Value | Ref Range | Performed | Pathologist | | | | | At | Signature | + + + + + + | Culture | Negative for MRSA by | | [facility] | | | | chromogenic agar method | | [facility] | | | | | | MEDICAL | | | | | | CENTER - | | | | | | LABORATORY | | + + + + + + | Culture | 4+ Coagulase positive | | [facility] | | | | Staphylococcus | | [facility] | | | | | | MEDICAL | | | | | | CENTER - | | | | | | LABORATORY | | + + + + + + + + | Specimen | + + | Tissue - Both | | anterior nares (body | | structure) | + + + + + + + | Performing | Address | City/State/Zipcode | Phone Number | | Organization | | | | + + + + + | [facility] | [address] | [place] | [phone] | | [facility] | | [address] | | | - LABORATORY | | | | + + + + + XR Chest AP Portable (07/03/2018 11:33 AM PDT) + + | Specimen | + + | | + + + + + | Narrative | Performed At | + + + | CLINICAL INFORMATION: CHEST TIGHTNESS DIZZINESS. COMPARISON: | [facility] | | None available. FINDINGS: Portable frontal chest radiograph | | | Lungs: No focal airspace disease, pleural effusion, or pneumothorax. | | | Heart/mediastinum: Cardiac silhouette is of normal size. Central | | | pulmonary vasculature has a normal appearance. Bones: No acute | | | osseous abnormality appreciated. IMPRESSION - No acute disease. | | | Dictated and Signed by: Jaylen Manzano MD Electronically | | | signed: 07/03/2018 3:01 PM | | + + + + + | Procedure Note | + + | Chris Barajas Results In - 07/03/2018 3:04 PM PDT | | CLINICAL INFORMATION: CHEST TIGHTNESS | | DIZZINESS. | | | | COMPARISON: None available. | | | | FINDINGS: | | Portable frontal chest radiograph | | | | Lungs: No focal airspace disease, pleural effusion, or pneumothorax. | | | | Heart/mediastinum: Cardiac silhouette is of normal size. Central pulmonary | | vasculature has a normal appearance. | | | | Bones: No acute osseous abnormality appreciated. | | | | IMPRESSION - No acute disease. | | | | Dictated and Signed by: Jaylen Manzano MD | | Electronically signed: 07/03/2018 3:01 PM | + + + +---------+ + + | Performing | Address | City/State/Zipcode | Phone Number | | Organization | | | | + +---------+ + + | [facility] | | | | + +---------+ + + TSH (07/03/2018 11:23 AM PDT) + +-------+ + + + | Component | Value | Ref Range | Performed | Pathologist | | | | | At | Signature | + +-------+ + + + | TSH | 1.37 | 0.55 - 4.78 | [facility] | | | | | uIU/mL | [facility] | | | | | | MEDICAL | | | | | | CENTER - | | | | | | LABORATORY | | + +-------+ + + + + + | Specimen | + + | Blood | + + + + + + + | Performing | Address | City/State/Zipcode | Phone Number | | Organization | | | | + + + + + | [facility] | [address] | [place] | [phone] | | [facility] | | [address] | | | - LABORATORY | | | | + + + + + Protime INR (07/03/2018 11:23 AM PDT) + + + + + + | Component | Value | Ref Range | Performed | Pathologist | | | | | At | Signature | + + + + + + | Prothrombin | 13.4 | 11.3 - 13.9 | [facility] | | | Time | | seconds | [facility] | | | | | | MEDICAL | | | | | | CENTER - | | | | | | LABORATORY | | + + + + + + | INR | 1.0Comment: Usual Oral | 0.9 - 1.1 | [facility] | | | | Anticoagulation Range: | | [facility] | | | | 2.0 - 3.0High | | MEDICAL | | | | Level Oral | | CENTER - | | | | Anticoagulation Range: | | LABORATORY | | | | 2.5 - 3.5 | | | | + + + + + + + + | Specimen | + + | Blood | + + + + + + + | Performing | Address | City/State/Zipcode | Phone Number | | Organization | | | | + + + + + | [facility] | [address] | [place] | [phone] | | [facility] | | [address] | | | - LABORATORY | | | | + + + + + B Type Natriuretic Peptide (07/03/2018 11:23 AM PDT) + +---------+ + + + | Component | Value | Ref Range | Performed | Pathologist | | | | | At | Signature | + +---------+ + + + | BNP | 205 (H) | <100 pg/mL | [facility] | | | | | | [facility] | | | | | | MEDICAL | | | | | | CENTER - | | | | | | LABORATORY | | + +---------+ + + + + + | Specimen | + + | Blood | + + + + + + + | Performing | Address | City/State/Zipcode | Phone Number | | Organization | | | | + + + + + | [facility] | [address] | [place] | [phone] | | [facility] | | [address] | | | - LABORATORY | | | | + + + + + Troponin I (07/03/2018 11:23 AM PDT) + + + + + + | Component | Value | Ref Range | Performed | Pathologist | | | | | At | Signature | + + + + + + | Troponin I | <0.01Comment: | <0.06 ng/mL | [facility] | | | | Comment:Reference | | [facility] | | | | Ranges: 0.00-0.06 = | | MEDICAL | | | | NORMAL >0.06 = | | CENTER - | | | | SUSPICIOUS FOR | | LABORATORY | | | | MYOCARDIAL DAMAGE NOTE: | | | | | | Values greater than | | | | | | 0.78 ng/mL have been | | | | | | shown to be strongly | | | | | | associated with acute | | | | | | myocardial infarction. | | | | | | The [employer] | | | | | | [employer] (ACC) | | | | | | recommends a decision | | | | | | limit of 0.06 ng/mL for | | | | | | this assay. Results | | | | | | greater than 0.06 can | | | | | | reflect a pre-infarct | | | | | | acute coronary syndrome, | | | | | | but can also reflect | | | | | | myocardial necrosis or | | | | | | injury that is not due | | | | | | to coronary artery | | | | | | disease. Some of these | | | | | | causes are sepsis, | | | | | | hypocolemia, atrial | | | | | | fibrillation, heart | | | | | | failure, pulmonary | | | | | | embolism, myocarditis, | | | | | | myocardial contusion, | | | | | | and renal failure. The | | | | | | diagnosis of myocardial | | | | | | infarction should be | | | | | | based on a combination | | | | | | of the patient's | | | | | | clinical presentation | | | | | | and the clinical | | | | | | laboratory test results | | | | | | (especially serial | | | | | | troponin levels). | | | | + + + + + + + + | Specimen | + + | Blood | + + + + + + + | Performing | Address | City/State/Zipcode | Phone Number | | Organization | | | | + + + + + | [facility] | [address] | [place] | [phone] | | [facility] | | [address] | | | - LABORATORY | | | | + + + + + Comprehensive Metabolic Panel (07/03/2018 11:23 AM PDT) + + + + + + | Component | Value | Ref Range | Performed | Pathologist | | | | | At | Signature | + + + + + + | Na | 139 | 136 - 145 | [facility] | | | | | mmol/L | [facility] | | | | | | MEDICAL | | | | | | CENTER - | | | | | | LABORATORY | | + + + + + + | K | 3.5 | 3.4 - 5.1 | [facility] | | | | | mmol/L | [facility] | | | | | | MEDICAL | | | | | | CENTER - | | | | | | LABORATORY | | + + + + + + | Cl | 101 | 98 - 107 mmol/L | [facility] | | | | | | [facility] | | | | | | MEDICAL | | | | | | CENTER - | | | | | | LABORATORY | | + + + + + + | CO2 | 27 | 20 - 31 mmol/L | [facility] | | | | | | [facility] | | | | | | MEDICAL | | | | | | CENTER - | | | | | | LABORATORY | | + + + + + + | Anion Gap | 11 | 3 - 16 mmol/L | [facility] | | | | | | [facility] | | | | | | MEDICAL | | | | | | CENTER - | | | | | | LABORATORY | | + + + + + + | Glucose | 120 (H) | 60 - 106 mg/dL | [facility] | | | | | | [facility] | | | | | | MEDICAL | | | | | | CENTER - | | | | | | LABORATORY | | + + + + + + | BUN | 15 | 9 - 23 mg/dL | [facility] | | | | | | [facility] | | | | | | MEDICAL | | | | | | CENTER - | | | | | | LABORATORY | | + + + + + + | Creatinine | 1.25 | 0.70 - 1.30 | [facility] | | | | | mg/dL | [facility] | | | | | | MEDICAL | | | | | | CENTER - | | | | | | LABORATORY | | + + + + + + | eGFR, | >60Comment: GLOMERULAR | >=60 | [facility] | | | non- | FILTRATION | mL/min/1.73m2 | [facility] | | | [place] | RATE,ESTIMATED | | MEDICAL | | | | mL/min/1.96v5Hjuy than | | CENTER - | | | | 60 Chronic kidney | | LABORATORY | | | | disease,if found over a | | | | | | 3-month period.Less than | | | | | | 15 Kidney failureFor | | | | | | | | | | | | Americans,multiply the | | | | | | calculated GFR by 1.21. | | | | | | | | | | + + + + + + | Calcium | 10.2 | 8.7 - 10.4 | [facility] | | | | | mg/dL | [facility] | | | [facility] - | | | | | | LABORATORY | | + + + + + + | Albumin | 4.9 (H) | 3.2 - 4.8 g/dL | [facility] | | | | | | [facility] | | | | | | [facility] | | | | | | [facility] - | | | | | | LABORATORY | | + + + + + + | Bilirubin | 1.4 (H) | 0.3 - 1.2 mg/dL | [facility] | | | Total | | | [facility] | | | | | | [facility] | | | | | | [facility] - | | | | | | LABORATORY | | + + + + + + | Total | 7.2 | 5.7 - 8.2 g/dL | [facility] | | | Protein | | | [facility] | | | | | | [facility] | | | | | | [facility] - | | | | | | LABORATORY | | + + + + + + | AST | 45 (H) | 0 - 34 U/L | [facility] | | | | | | [facility] | | | [facility] | | [facility] | | | | | | [facility] - | | | | | | LABORATORY | | + + + + + + | ALT | 79 (H) | 10 - 49 U/L | [facility] | | | | | | [facility] | | | | | | [facility] | | | | | | [facility] - | | | | | | LABORATORY | | + + + + + + | Alkaline | 48 | 46 - 116 U/L | [facility] | | | Phosphatase | | | [facility] | | | | | | [facility] | | | | | | [facility] - | | | | | | LABORATORY | | + + + + + + | Globulin | 2.3 | 2.1 - 3.8 g/dL | [facility] | | | | | | [facility] | | | | | | [facility] | | | | | | [facility] - | | | | | | LABORATORY | | + + + + + + | Albumin/Bernice | 2.1 (H) | 0.8 - 1.9 | [facility] | | | bulin Ratio | | | [facility] | | | | | | [facility] | | | | | | [facility] - | | | | | | LABORATORY | | + + + + + + | BUN/Creatin | 12.0 | | [facility] | | | ine Ratio | | | [facility] | | | | | | [facility] | | | | | | [facility] - | | | | | | LABORATORY | | + + + + + + + + | Specimen | + + | Blood | + + + + + + + | Performing | Address | City/State/Zipcode | Phone Number | | Organization | | | | + + + + + | [facility] | [address] | [place] | [phone] | | [facility] | | [address] | | | - LABORATORY | | | | + + + + + CBC with Differential (07/03/2018 11:23 AM PDT) + + + + + + | Component | Value | Ref Range | Performed | Pathologist | | | | | At | Signature | + + + + + + | White Blood | 11.4 (H) | 4.0 - 11.0 K/uL | [facility] | | | Cells | | | [facility] | | | | | [facility] | | | | | | [facility] - | | | | | | LABORATORY | | + + + + + + | Red Blood | 5.62 | 4.30 - 5.70 | [facility] | | | Cells | | M/uL | [facility] | | | | | | [facility] | | | | | | [facility] - | | | | | | LABORATORY | | + + + + + + | Hemoglobin | 17.1 | 13.5 - 18.0 | [facility] | | | | | g/dL | [facility] | | [facility] | | | | | | [facility] - | | | | | | LABORATORY | | + + + + + + | Hematocrit | 49.8 | 40.0 - 51.0 % | [facility] | | | | | | [facility] | | | | | | [facility] - | | | | | | LABORATORY | | + + + + + + | MCV | 88.6 | 83.0 - 101.0 fL | [facility] | | | | | | [facility] | | | | | | [facility] - | | | | | | LABORATORY | | + + + + + + | MCH | 30.4 | 28.0 - 35.0 pg | [facility] | | | | | | [facility] | | | | | | [facility] - | | | | | | LAB[facility]ATORY | | + + + + + + | MCHC | 34.3 | 32.0 - 36.0 | [facility] | | | | | g/dL | [facility] | | | | | | [facility] | | | | | | [facility] - | | | | | | LABORATORY | | + + + + + + | RDW-CV | 12.8 | <15.0 % | [facility] | | | | | | [facility] | | | | | | [facility] | | | | | | [facility] - | | | | | | LABORATORY | | + + + + + + | RDW-SD | 41.4 | 35.1 - 46.3 fL | [facility] | | | | | | [facility] | | | | | [facility] | | | | | | [facility] - | | | | | | LABORATORY | | + + + + + + | Platelet | 285 | 140 - 440 K/uL | [facility] | | | Count | | | [facility] | | | | | | [facility] | | | | | | CENTER - | | | | | | LABORATORY | | + + + + + + | MPV | 10.6 | 6.5 - 12.4 fL | [facility] | | | | | | [facility] | | | | | | [facility] | | | | | | [facility] - | | | | | | LABORATORY | | + + + + + + | % | 62.8 | 45.0 - 82.0 % | [facility] | | | Neutrophils | | | [facility] | | | | | | [facility] | | | | | | [facility]ENTER - | | | | | | LABORATORY | | + + + + + + | % | 26.7 | 20.0 - 45.0 % | [facility] | | | Lymphocytes | | | [facility] | | | | | | [facility] | | | | | | CENTER - | | | | | | LABORATORY | | + + + + + + | % Monocytes | 7.2 | 4.0 - 12.0 % | [facility] | | | | | | [facility] | | | | | | [facility] | | | | | | [facility] - | | | | | | LABORATORY | | + + + + + + | % | 2.6 | 0.0 - 5.0 % | [facility] | | | Eosinophils | | | [facility] | | | | | | [facility] | | | | | | CENTER - | | | | | | LABORATORY | | + + + + + + | % Basophils | 0.4 | 0.0 - 1.0 % | [facility] | | | | | | [facility] | | | | | | [facility] | | | | | | CENTER - | | | | | | LABORATORY | | + + + + + + | % Immature | 0.3 | 0.0 - 0.4 % | [facility] | | | Granulocyte | | | [facility] | | | s | | | MEDICAL | | | | | | CENTER - | | | | | | LABORATORY | | + + + + + + | Absolute | 7.13 | 1.80 - 8.50 | [facility] | | | Neutrophils | | K/uL | [facility] | | | | | | [facility] | | | | | | [facility]ENTER - | | | | | | LABORATORY | | + + + + + + | Absolute | 3.03 | 0.60 - 3.20 | [facility] | | | Lymphocytes | | K/uL | [facility] | | | | | | [facility] - | | | | | | LABORATORY | | + + + + + + | Absolute | 0.82 | 0.00 - 1.00 | [facility] | | | Monocytes | | K/uL | [facility] | | | | | | [facility] - | | | | | | LABORATORY | | + + + + + + | Absolute | 0.29 | 0.00 - 0.40 | [facility] | | | Eosinophils | | K/uL | [facility] | [facility] | [facility] | | | | | | CENTER - | | | | | | LABORATORY | | + + + + + + | Absolute | 0.05 | 0.00 - 0.10 | [facility] | | | Basophils | | K/uL | [facility] | [facility] | [facility] | | | | | | CENTER - | | | | | | LABORATORY | | + + + + + + | Absolute | 0.03 | 0.00 - 0.03 | [facility] | | | Immature | | K/uL | [facility] | | | Granulocyte | | | MEDICAL | | | s | | | CENTER - | | | | | | LABORATORY | | + + + + + + | % nRBC | 0 | 0 - 2 per 100 | [facility] | | | | | WBCs | [facility] | | [facility] | | | | | | [facility] - | | | | | | LABORATORY | | + + + + + + | Absolute | 0.00 | 0.00 - 0.01 | [facility] | | | nRBC | | K/uL | [facility] | | [facility] | [facility] | | | | | | [facility] - | | | | | | LABORATORY | | + + + + + + + + | Specimen | + + | Blood | + + + + + + + | Performing | Address | City/State/Zipcode | Phone Number | | Organization | | | | + + + + + | [facility] | [address] | [place] | [phone] | | [facility] | | [address] | | | - LABORATORY | | | | + + + + + ECG 12 lead (07/03/2018 11:14 AM PDT) + + + + + + | Component | Value | Ref Range | Performed | Pathologist | | | | | At | Signature | + + + + + + | VENTRICULAR | 159 | BPM | [facility] | | | RATE EKG | | | | | + + + + + + | QRS | 86 | ms | [facility] | | | DURATION | | | | | + + + + + + | Q-T | 250 | ms | [facility] | | | INTERVAL | | | | | + + + + + + | Q-T | 406 | ms | [facility] | | | INTERVAL | | | | | | (CORRECTED) | | | | | + + + + + + | QRS AXIS | 48 | degrees | [facility] | | + + + + + + | T AXIS | -139 | degrees | [facility] | | + + + + + + | INTERPRETAT | Atrial fibrillation with | | [facility] | | | ION TEXT | rapid ventricular | | | | | | responseST & T wave | | | | | | abnormalities may be | | | | | | secondary to rate and/or | | | | | | ischemiaAbnormal ECGNo | | | | | | previous ECGs | | | | | | availableConfirmed by | | | | | | ALYSIA FLORES MD ([id number]) | | | | | | on 07/04/2018 7:34:52 AM | | | | + + + + + + + + | Specimen | + + | | + + + + + | Narrative | Performed At | + + + | | | + + + + +---------+ + + | Performing | Address | City/State/Zipcode | Phone Number | | Organization | | | | + +---------+ + + | [facility] | | | | + +---------+ + + documented in this encounter Visit Diagnoses + + | Diagnosis | + + | Atrial fibrillation with rapid ventricular response (HCC) - Primary Atrial | | fibrillation | + + | New onset atrial fibrillation (HCC) Atrial fibrillation | + + | Hypertension, unspecified type | + + | Atrial fibrillation (HCC) Atrial fibrillation | + + documented in this encounter Administered Medications + +--------+ +--------+------+------+ | Medication Order | MAR | Action | Dose | Rate | Site | | | Action | Date | | | | + +--------+ +--------+------+------+ | acetaminophen (TYLENOL) tablet | Given | 07/06/19 | 650 mg | | | | 650 mg 650 mg, Oral, EVERY 4 | | 19 7:53 | | | | | HOURS PRN, Pain, or fever >= 38.6 | | PM PDT | | | | | C (101.5 F), Starting Sun | | | | | | | 07/03/18 at 1554 | | | | | | + +--------+ +--------+------+------+ +-------+ +--------+---+---+ | Given | 07/05/19 | 650 mg | | | | | 19 8:00 | | | | | | PM PDT | | | | +-------+ +--------+---+---+ | Given | 07/05/19 | 650 mg | | | | | 19 3:53 | | | | | | AM PDT | | | | +-------+ +--------+---+---+ +---+---+ | | | +---+---+ + +-------+ +------+---+---+ | apixaban (ELIQUIS) tablet 5 mg | Given | 07/07/19 | 5 mg | | | | 5 mg, Oral, 2 TIMES DAILY, First | | 19 8:19 | | | | | dose on 07/04/18 at 0900 | | AM PDT | | | | + +-------+ +------+---+---+ +-------+ +------+---+---+ | Given | 07/06/19 | 5 mg | | | | | 19 8:00 | | | | | | PM PDT | | | | +-------+ +------+---+---+ | Given | 07/06/19 | 5 mg | | | | | 19 8:08 | | | | | | AM PDT | | | | +-------+ +------+---+---+ +---+---+ | | | +---+---+ + +-------+ +------+---+---+ | apixaban (ELIQUIS) tablet 5 mg | Given | 07/04/19 | 5 mg | | | | 5 mg, Oral, ONCE, 07/03/18 at | | 19 2:16 | | | | | 1405, For 1 dose | | PM PDT | | | | + +-------+ +------+---+---+ +---+---+ | | | +---+---+ + +-------+ +--------+---+---+ | aspirin chewable tablet 324 mg | Given | 07/04/19 | 324 mg | | | | 324 mg, Oral, ONCE, 07/03/18 | | 19 1:59 | | | | | at 1350, For 1 dose | | PM PDT | | | | + +-------+ +--------+---+---+ +---+---+ | | | +---+---+ + +-------+ +--------+---+---+ | dilTIAZem (CARDIZEM CD) 24 hr | Given | 07/05/19 | 120 mg | | | | capsule 120 mg 120 mg, Oral, | | 19 9:35 | | | | | ONCE, 07/04/18 at 0945, For 1 | | AM PDT | | | | | dose | | | | | | + +-------+ +--------+---+---+ +---+---+ | | | +---+---+ + +-------+ +--------+---+---+ | dilTIAZem (CARDIZEM CD) 24 hr | Given | 07/04/19 | 120 mg | | | | capsule 120 mg 120 mg, Oral, | | 19 1:59 | | | | | DAILY, First dose on 07/03/18 | | PM PDT | | | | | at 1345 | | | | | | + +-------+ +--------+---+---+ +---+---+ | | | +---+---+ + +-------+ +--------+---+---+ | dilTIAZem (CARDIZEM CD) 24 hr | Given | 07/05/19 | 180 mg | | | | capsule 180 mg 180 mg, Oral, | | 19 8:12 | | | | | DAILY, First dose (after last | | AM PDT | | | | | modification) on 07/04/18 at | | | | | | | 0900 | | | | | | + +-------+ +--------+---+---+ +---+---+ | | | +---+---+ + +-------+ +--------+---+---+ | dilTIAZem (CARDIZEM CD) 24 hr | Given | 07/07/19 | 240 mg | | | | capsule 240 mg 240 mg, Oral, | | 19 8:19 | | | | | DAILY, First dose (after last | | AM PDT | | | | | modification) on Wed07/05/18 at | | | | | | | 0900 | | | | | | + +-------+ +--------+---+---+ +-------+ +--------+---+---+ | Given | 07/06/19 | 240 mg | | | | | 19 8:08 | | | | | | AM PDT | | | | +-------+ +--------+---+---+ +---+---+ | | | +---+---+ + +---------+ + + +---+ | dilTIAZem (CARDIZEM) 1 mg/mL in | New Bag | 07/04/19 | 10 mg/hr | 10 mL/hr | | | sodium chloride 0.9% 125 mL | | 19 1:38 | | | | | infusion 0-15 mg/hr (0-15 | | PM PDT | | | | | mL/hr), at 0-15 mL/hr, | | | | | | | Intravenous, TITRATED, Starting | | | | | | | 07/03/18 at 1120, Titration | | | | | | | Instruction: See below, Goal: HR | | | | | | | less than 100, Initial dose: 5 | | | | | | | mg/hr, Increase rate by: 5 mg/hr | | | | | | | every 15 minutes., Decrease rate | | | | | | | by: 5 mg/hr every 15 minutes., *: | | | | | | | Titrate drug per order as | | | | | | | tolerated. Titration may vary | | | | | | | based on the patient | | | | | | | | | | | | | | s critical condition. | | | | | | + +---------+ + + +---+ + + + + +---+ | New Bag | 07/04/19 | 15 mg/hr | 15 mL/hr | | | | 19 1:03 | | | | | | PM PDT | | | | + + + + +---+ | Rate/Dose Change | 07/04/19 | 10 mg/hr | 10 mL/hr | | | | 19 12:13 | | | | | | PM PDT | | | | + + + + +---+ +---+---+ | | | +---+---+ + + + +---------+---------+---+ | dilTIAZem (CARDIZEM) 1 mg/mL in | Rate/Dos | 07/04/19 | 5 mg/hr | 5 mL/hr | | | sodium chloride 0.9% 125 mL | e Change | 19 5:50 | | | | | infusion 0-15 mg/hr (0-15 | | PM PDT | | | | | mL/hr), at 0-15 mL/hr, | | | | | | | Intravenous, TITRATED, Starting | | | | | | | 07/03/18 at 1345, Titration | | | | | | | Instruction: See below, Goal: HR | | | | | | | less than 110, Initial dose: 5 | | | | | | | mg/hr, Increase rate by: 5 mg/hr | | | | | | | every 15 minutes., Decrease rate | | | | | | | by: 5 mg/hr every 15 minutes., *: | | | | | | | Titrate drug per order as | | | | | | | tolerated. Titration may vary | | | | | | | based on the patient | | | | | | | | | | | | | | s critical condition. | | | | | | + + + +---------+---------+---+ + + + + +---+ | Rate/Dose Change | 07/03/20 | 15 mg/hr | 15 mL/hr | | | | 19 5:20 | | | | | | PM PDT | | | | + + + + +---+ | Rate/Dose Change | 07/04/19 | 10 mg/hr | 10 mL/hr | | | | 19 5:15 | | | | | | PM PDT | | | | + + + + +---+ +---+---+ | | | +---+---+ + +-------+ +-------+---+---+ | dilTIAZem (CARDIZEM) injection | Given | 07/04/19 | 15 mg | | | | 15 mg 15 mg, Intravenous, ONCE, | | 19 11:20 | | | | | 07/03/18 at 1120, For 1 dose, | | AM PDT | | | | | Keep in refrigerator., | | | | | | + +-------+ +-------+---+---+ +---+---+ | | | +---+---+ + +-------+ +-------+---+---+ | dilTIAZem (CARDIZEM) tablet 30 | Given | 07/04/19 | 30 mg | | | | mg 30 mg, Oral, ONCE, Sun | | 19 5:51 | | | | | 07/03/18 at 1800, For 1 dose | | PM PDT | | | | + +-------+ +-------+---+---+ +---+---+ | | | +---+---+ + +-------+ +-------+---+---+ | dilTIAZem (CARDIZEM) tablet 30 | Given | 07/04/19 | 30 mg | | | | mg 30 mg, Oral, ONCE, Sun | | 19 11:51 | | | | | 07/03/18 at 2345, For 1 dose | | PM PDT | | | | + +-------+ +-------+---+---+ +---+---+ | | | +---+---+ + +-------+ +---------+---+---+ | HYDROcodone-acetaminophen | Given | 07/07/19 | 2 | | | | (NORCO) 5-325 mg per tablet 1-2 | | 19 8:18 | tablets | | | | tablet 1-2 tablet, Oral, EVERY 6 | | AM PDT | | | | | HOURS PRN, Pain, Starting Sun | | | | | | | 07/03/18 at 1554 | | | | | | + +-------+ +---------+---+---+ +-------+ + +---+---+ | Given | 07/06/19 | 2 | | | | | 19 3:32 | tablets | | | | | PM PDT | | | | +-------+ + +---+---+ | Given | 07/05/19 | 1 tablet | | | | | 19 3:50 | | | | | | PM PDT | | | | +-------+ + +---+---+ +---+---+ | | | +---+---+ + +-------+ +------+---+---+ | LORazepam (ATIVAN) injection 1 | Given | 07/04/19 | 1 mg | | | | mg 1 mg, Intravenous, ONCE, Sun | | 19 11:53 | | | | | 07/03/18 at 1145, For 1 dose | | AM PDT | | | | + +-------+ +------+---+---+ +---+---+ | | | +---+---+ + +-------+ +------+---+---+ | metoprolol tartrate (LOPRESSOR) | Given | 07/04/19 | 5 mg | | | | injection 5 mg 5 mg, | | 19 5:52 | | | | | Intravenous, ONCE, 07/03/18 at | | PM PDT | | | | | 1800, For 1 dose | | | | | | + +-------+ +------+---+---+ +---+---+ | | | +---+---+ + +-------+ +------+---+---+ | metoprolol tartrate (LOPRESSOR) | Given | 07/05/19 | 5 mg | | | | injection 5 mg 5 mg, | | 19 11:25 | | | | | Intravenous, ONCE, 07/04/18 at | | AM PDT | | | | | 1145, For 1 dose | | | | | | + +-------+ +------+---+---+ +---+---+ | | | +---+---+ + +-------+ +------+---+---+ | ondansetron (ZOFRAN) injection | Given | 07/07/19 | 4 mg | | | | 4 mg 4 mg, Intravenous, EVERY 6 | | 19 8:19 | | | | | HOURS PRN, Nausea, Vomiting, | | AM PDT | | | | | Starting 07/03/18 at 1554, | | | | | | | First line agent, | | | | | | + +-------+ +------+---+---+ +-------+ +------+---+---+ | Given | 07/05/19 | 4 mg | | | | | 19 11:26 | | | | | | PM PDT | | | | +-------+ +------+---+---+ +---+---+ | | | +---+---+ + +---------+ +--------+-------+---+ | sodium chloride 0.9% (NS) bolus | New Bag | 07/04/19 | 1,000 | 2000 | | | 1,000 mL 1,000 mL, Intravenous, | | 19 11:28 | mLs | mL/hr | | | Administer over 30 Minutes, | | AM PDT | | | | | ONCE, 07/03/18 at 1120, For 1 | | | | | | | dose | | | | | | + +---------+ +--------+-------+---+ +---+---+ | | | +---+---+ documented in this encounter
--- OUTSIDE RECORDS SUMMARY | ~2019-09-18 | XMS | Encounter Summary ---
Demographics + + + | Address | [place] [address] | | | [place] [facility] [address] | + + + | Home Phone | | + + + | Preferred Language | Unknown | + + + | Marital Status | Single | + + + | Congregation Affiliation | Unknown | + + + | Race | Unknown | + + + | Ethnic Group | Unknown | + + + Author + + + | Author | [facility] | | | and [place] | + + + | Organization | [facility] | | | and [place] | + + + | Address | Unknown | + + + | Phone | Unavailable | + + + Support + + + + + | Name | Relationship | Address | Phone | + + + + + | Elizabeth Venegas | ECON | [address] | | | | | [place] | | | | | [place], [place] | | | | | [address] | | + + + + + | Thu Fitzpatrick | ECON | [address] | | | | | [place], | | | | | [place] [address] | | + + + + + Care Team Providers + +------+ + | Care Asset Protection Professional Name | Role | Phone | + +------+ + | Reyes Basurto MD | PCP | | + +------+ + Encounter Details +--------+ + + + + | Date | Type | Department | Care Team | Description | +--------+ + + + + | 06/18/ | Orders Only | [facility] | Candelario Cm ARNP | | | 2016 | | [facility] | [address] | | | | | [address] | [place], [place] | | | | | [place], [place] | [id number] | | | | | [address] | | | | | | [phone] | | | +--------+ + + + [...] + +--------+ + + + | XR NANCYANEUS JAYLEN 2 | Routin | 06/18/2016 | | Results for this | | + VW | e | 10:39 AM | | procedure are in the | | | | PDT | | results section. | + +--------+ + + + documented in this encounter Results XR Nancyane Left 2 + Vw (06/18/2016 10:39 AM PDT) + + | Specimen | + + | | + + + + + | Narrative | Performed At | + + + | History: This is a 45 y.o. year old male. Diagnosis for Order | | | ICD-10-CM 1. Left foot pain M79.672 X-ray oscalcis left | | | Indications: Follow-up on left calcaneal extra-articular fracture | | | Technique: 2 view x-ray of the left calcaneus. Comparison Exam: | | | Comparison with x-rays obtained on 04 June 2016 | | | Findings/Impression: 1. Left calcaneal extra-articular fracture | | | with mild compression and loss of height 2. No evidence of the | | | subtalar joint BEE SWEENEY DO 06/30/2016 | | + + + + + | Procedure Note | + + | Chris Barajas Conversion - 10/06/2018 8:14 PM PDT History: This is a 45 y.o. year old | | male. Diagnosis for Order ICD-10-CM1. Left foot pain M79.672 X-ray oscalcis left | | Indications: Follow-up on left calcaneal extra-articular fracture Technique: 2 view | | x-ray of the left calcaneus. Comparison Exam: Comparison with x-rays obtained on | | May 2016 Findings/Impression: 1. Left calcaneal extra-articular fracture with mild | | compression and lossof height 2. No evidence of the subtalar joint BEE SWEENEY, | | DO06/30/2016 | | | |Comparison Exam: Comparison with x-rays obtained on 04 June 2016 | | | |Findings/Impression: | | | |1. Left calcaneal extra-articular fracture with mild compression and loss | |of height | | | |2. No evidence of the subtalar joint | | | | | |BEE SWEENEY DO | |06/30/2016 | | | | | + + documented in this encounter Visit Diagnoses Not on filedocumented in this encounter"
--- OUTSIDE RECORDS SUMMARY | ~2019-09-18 | XMS | Encounter Summary ---
Demographics + + + | Address | [place] [address] | | | [place] [facility] [address] | + + + | Home Phone | | + + + | Preferred Language | Unknown | + + + | Marital Status | Single | + + + | Yazdanism Affiliation | Unknown | + + + | Race | Unknown | + + + | Ethnic Group | Unknown | + + + Author + + + | Author | [facility] | | | and [place] | + + + | Organization | [facility] | | | and [place] | + + + | Address | Unknown | + + + | Phone | Unavailable | + + + Support + + + + + | Name | Relationship | Address | Phone | + + + + + | Elizabeth Venegas | ECON | [address] | | | | | [place] | | | | | [place], [place] | | | | | [address] | | + + + + + | Thu Fitzpatrick | ECON | [address] | | | | | [place], | | | | | [place] [address] | | + + + + + Care Team Providers + +------+ + | Care Supervisor Research [place]el Name | Role | Phone | + +------+ + | Reyes Basurto MD | PCP | | + +------+ + Reason for Visit + + + | Reason | Comments | + + + | Flu Like Symptoms | proc 2 x 1wk | + + + Encounter Details +--------+---------+ + + + | Date | Type | Department | Care Team | Description | +--------+---------+ + + + | 02/26/ | Office | [facility] | [place], | Influenza (Primary | | 2018 | Visit | [facility] [address] | [address] | Dx) | | | | [place] | [place] | | | | | [address] | [address] | | | | | [phone] | | | +--------+---------+ + + + [...] + + + | Blood Pressure | 142/85 | 02/26/2017 5:27 PM | | | | | PST | | + + + + + | Pulse | 100 | 02/26/2017 5:27 PM | | | | | PST | | + + + + + | Temperature | 37.1 C (98.7 F) | 02/26/2017 5:27 PM | | | | | PST | | + + + + + | Respiratory Rate | 20 | 02/26/2017 5:27 PM | | | | | PST | | + + + + + | Oxygen Saturation | 96% | 02/26/2017 5:27 PM | | | | | PST | | + + + + + | Inhaled Oxygen | - | - | | | Concentration | | | | + + + + + | Weight | 111.6 kg (246 lb 0.5 | 02/26/2017 5:27 PM | | | | oz) | PST | | + + + + + | Height | 180.3 cm (5' 11") | 02/26/2017 5:27 PM | | | | | PST | | + + + + + | Body Mass Index | 34.31 | 02/26/2017 5:27 PM | | | | | PST | | + + + + + documented in this encounter Patient Instructions Patient Instructions Guzman Polk MD - 02/26/2017 5:00 PM PSTTreat with rest, increas ed fluids, Tylenol and/or ibuprofen as needed, and light snacks. Return to the clinic over the week should symptoms persist, change, or worsen. documented in this encounter Progress Notes Guzman Polk MD - 02/26/2017 5:00 PM PSTFormatting of this note might be different fr om the original. Subjective: Chief Complaint: Flu Like Symptoms (proc 2 x 1wk) Yvette is a 46 y.o. male who comes in complaining of a 3 day history of a congested cough wit h sore throat, fevers, chills, myalgias initially, and some sweats. He states in the night with his coffee is feeling confused as well. It's better now though he still feels like his thinking isn't clear. He does not smoke and has no history of lung disease. No other com plaints. Patient's medications, allergies, past medical, surgical, social and family histories were reviewed and updated as appropriate. Objective: BP 142/85 | Pulse 100 | Temp 37.1 C (98.7 F) (Temporal) | Resp 20 | Ht 1.803 m (5' 11") | Wt 111.6 kg (246 lb 0.5 oz) | SpO2 96% | BMI 34.31 kg/m General Appearance: Alert, cooperative, no distress, appears stated age Ears normal Eyes pupils equal round reactive light, extraocular movements intact, normal sclera Oropharynx normal Neck without lymphadenopathy and supple Lungs clear throughout to auscultation Heart tones normal Neurologic exam grossly normal with normal strength throughout, normal gait, fully oriented and answering questions appropriately Assessment and Plans: Influenza. Will treat with rest, increased fluids, Tylenol and/or ibuprofen as needed, and Phenergan with codeine cough syrup as needed. Return over the week should symptoms persist , change, or worsen. documented in this e ncounter Plan of Treatment Not on filedocumented as of this encounter Visit Diagnoses + + | Diagnosis | + + | Influenza - Primary Influenza with other respiratory manifestations | + + documented in this encounter
--- OUTSIDE RECORDS SUMMARY | ~2019-09-18 | XMS | Encounter Summary ---
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 POSITIVE | | EXTERNAL | | | | | | LAB | | + + + + + + | Antibody | NEGATIVE | | EXTERNAL | | | Screen | | | LAB | | + + + + + + | BB BAND | [id number] | | EXTERNAL | | | | performed at [facility];[address] | | LAB | | | | [address];[place] | | | | | | [address] | | | | + + + + + + + + | Specimen | + + | Blood specimen | | (specimen) | + + + +---------+ + + | Performing | Address | City/State/Zipcode | Phone Number | | Organization | | | | + +---------+ + + | EXTERNAL LAB | | | | + +---------+ + + External Lab: CBC (06/06/2016 9:09 PM PDT) + + + + + + | Component | Value | Ref Range | Performed | Pathologist | | | | | At | Signature | + + + + + + | WBC | 15.55 (H) | 3.80 - 11.00 | EXTERNAL | | | | | K/uL | LAB | | + + + + + + | Non- | 4.44 | 4.20 - 5.70 | EXTERNAL | | | Red Blood | | M/uL | LAB | | | Cells | | | | | | Counted | | | | | + + + + + + | Hemoglobin | 13.2 | 13.2 - 17.0 | EXTERNAL | | | | | g/dL | LAB | | + + + + + + | Hematocrit, | 37.9 (L) | 39.0 - 50.0 % | EXTERNAL | | | POC | | | LAB | | + + + + + + | MCV | 85.5 | 80.0 - 100.0 fl | EXTERNAL | | | | | | LAB | | + + + + + + | MCH | 29.7 | 27.0 - 34.0 pg | EXTERNAL | | | | | | LAB | | + + + + + + | MCHC | 34.7 | 32.0 - 35.5 | EXTERNAL | | | | | g/dL | LAB | | + + + + + + | RDW-CV | 41.6 | 37 - 53 fl | EXTERNAL | | | | | | LAB | | + + + + + + | Platelet | 196 | 150 - 400 K/uL | EXTERNAL | | | Count | | | LAB | | | Plasma | | | | | + + + + + + | MPV | 9.0 | fl | EXTERNAL | | | | | | LAB | | + + + + + + | Differentia | AUTOMATED | | EXTERNAL | | | l Type | | | LAB | | + + + + + + | % Segmented | 85.36 | % | EXTERNAL | | | | | | LAB | | | Neutrophils | | | | | + + + + + + | % | 9.00 | % | EXTERNAL | | | Lymphocytes | | | LAB | | + + + + + + | % Monocytes | 5.17 | % | EXTERNAL | | | | | | LAB | | + + + + + + | % | 0.18 | % | EXTERNAL | | | Eosinophils | | | LAB | | + + + + + + | % Basophils | 0.29 | % | EXTERNAL | | | | | | LAB | | + + + + + + | Absolute | 13.27 (H) | 1.90 - 7.40 | EXTERNAL | | | Segmented | | K/uL | LAB | | | Neutrophils | | | | | + + + + + + | Absolute | 1.40 | 1.00 - 3.90 | EXTERNAL | | | Lymphocytes | | K/uL | LAB | | + + + + + + | Absolute | 0.80 | 0.00 - 0.80 | EXTERNAL | | | Monocytes | | K/uL | LAB | | + + + + + + | Absolute | 0.03 | 0.00 - 0.50 | EXTERNAL | | | Eosinophils | | K/uL | LAB | | + + + + + + | Absolute | 0.05 | 0.00 - 0.10 | EXTERNAL | | | Basophils | | K/uL | LAB | | + + + + + + | RBC | RBC AND PLT MORPHOLOGY | | EXTERNAL | | | Morphology | APPEAR NORMAL | | LAB | | + + + + + + | Differentia | SLIDE SCANNED, AGREES | | EXTERNAL | | | l Comments | WITH AUTOMATED | | LAB | | | | RESULTS.Comment: Testing | | | | | | performed at [facility];[address] | | | | | | [address];[place], [place] | | | | | | [address] | | | | + + + + + + + + | Specimen | + + | Blood specimen | | (specimen) | + + + +---------+ + + | Performing | Address | City/State/Zipcode | Phone Number | | Organization | | | | + +---------+ + + | EXTERNAL LAB | | | | + +---------+ + + Comprehensive Metabolic Panel (06/06/2016 9:09 PM PDT) + + + + + + | Component | Value | Ref Range | Performed | Pathologist | | | | | At | Signature | + + + + + + | Na | 143 | 135 - 145 | EXTERNAL | | | | | mmol/L | LAB | | + + + + + + | K | 3.8 | 3.5 - 4.9 | EXTERNAL | | | | | mmol/L | LAB | | + + + + + + | Cl | 110 (H) | 99 - 109 mmol/L | EXTERNAL | | | | | | LAB | | + + + + + + | CO2 | 25 | 23 - 32 mmol/L | EXTERNAL | | | | | | LAB | | + + + + + + | Anion Gap | 12 | 5 - 20 mmol/L | EXTERNAL | | | | | | LAB | | + + + + + + | Glucose, | 130 (H) | 65 - 99 mg/dL | EXTERNAL | | | Fasting | | | LAB | | + + + + + + | BUN | 15 | 8 - 25 mg/dL | EXTERNAL | | | | | | LAB | | + + + + + + | Creatinine | 1.2 | 0.70 - 1.30 | EXTERNAL | | | | | mg/dL | LAB | | + + + + + + | BUN/Creatin | 12 | | EXTERNAL | | | ine Ratio | | | LAB | | + + + + + + | Calcium | 8.2 (L) | 8.5 - 10.5 | EXTERNAL | | | | | mg/dL | LAB | | + + + + + + | Protein, | 7.0 | 6.3 - 8.2 g/dL | EXTERNAL | | | Total | | | LAB | | + + + + + + | Albumin | 4.0 | 3.6 - 5.0 g/dL | EXTERNAL | | | | | | LAB | | + + + + + + | Globulin | 3.0 | 1.3 - 4.9 g/dL | EXTERNAL | | | | | | LAB | | + + + + + + | A/G Ratio | 1.3 | 1.0 - 2.4 | EXTERNAL | | | | | | LAB | | + + + + + + | Bilirubin | 0.4 | 0.1 - 1.5 mg/dL | EXTERNAL | | | Total | | | LAB | | + + + + + + | ALP, | 46 | 35 - 115 U/L | EXTERNAL | | | External | | | LAB | | + + + + + + | AST | 23 | 10 - 45 U/L | EXTERNAL | | | | | | LAB | | + + + + + + | ALT | 53 | 10 - 65 U/L | EXTERNAL | | | | | | LAB | | + + + + + + | Estimated | >60Comment: GFR <60: | mL/min/1.73m2 | EXTERNAL | | | GFR | CHRONIC KIDNEY DISEASE, | | LAB | | | | IF FOUND OVER A 3 MONTH | | | | | | PERIOD.GFR <15: KIDNEY | | | | | | FAILURE.FOR | | | | | | AMERICANS, MULTIPLY THE | | | | | | CALCULATED GFR BY | | | | | | 1.210.Testing performed | | | | | | at [facility];[address] [place] [address] | | | | | | [facility];[place] [address] | | | | + + + + + + + + | Specimen | + + | Blood specimen | | (specimen) | + + + +---------+ + + | Performing | Address | City/State/Zipcode | Phone Number | | Organization | | | | + +---------+ + + | EXTERNAL LAB | | | | + +---------+ + + CT Foot Left wo Contrast (06/06/2016 8:35 PM PDT) + + | Specimen | + + | | + + + + | Addenda | + + | Addendum by Yang Powell MD on 06/06/2016 9:41 PM 2. Nondisplaced subtle | | fracture of the dorsal cuboid on image 104. 3. Also, a subtle fracture about the | | inferior lateral aspect of the tarsal navicular bone on image 109 Although | | multiply fractured, no material malalignment. | + + + + + | Impressions | Performed At | + + + | 1. Shattered calcaneus. Multiple fracture planes: bisecting | | | the sustentaculum, the distal articular promontory, and extending | | | posteriorly to the level of the posterior margin of the posterior | | | talotibial calcaneal joint | | + + + + + + | Narrative | Performed At | + + + | HISTORY: 45 year-old male, trauma TECHNIQUE: 1. CT | | | evaluation of the left foot. Bone algorithm noncontrast technique with | | | reformatted sagittal and coronal images. Automatic exposure | | | control for purposes of dose reduction was performed as per protocol | | | at this institution Prior study for review : None similar | | | FINDINGS: Supervisor Post Wave is notable for calcaneal fracture, to be discussed | | | below To limitations of noncontrast bone algorithm technique, | | | soft tissues reveal significant edema. Overlying cast/splint. | | | Fractures: 1. The calcaneus is shattered. Fracture plane bisects | | | the calcaneus at the level of the posterior talocalcaneal joint, with | | | multiple fracture planes extending anteriorly, inferiorly, bisecting | | | the sustentaculum at its base and the distal anterior articular | | | promontory. The talus appears to be spared and the talocalcaneal | | | joint is normal, although a small burned-out osteochondral defect | | | about the medial talar dome and be difficult to exclude on coronal | | | image 131. No fibular fracture Dorsal osteophytosis of the | | | talotibial navicular joint, but with nonacute features | | + + + + + | Procedure Note | + + | Karl, Rad Conversion - 09/29/2018 8:10 AM PDT HISTORY: 45 year-old male, trauma | | TECHNIQUE: 1. CT evaluation of the left foot. Bone algorithm noncontrast technique with | | reformatted sagittal and coronal images. Automatic exposure control for purposes of dose | | reduction was performed as per protocol at this institution Prior study for review : | | None similar FINDINGS: Supervisor Post Wave is notable for calcaneal fracture, to be discussed below To | | limitations of noncontrast bone algorithm technique, soft tissues reveal significant | | edema. Overlying cast/splint. Fractures: 1. The calcaneus is shattered. Fracture plane | | bisects the calcaneus at the level of the posterior talocalcaneal joint, with multiple | | fracture planes extending anteriorly, inferiorly, bisecting the sustentaculum at its | | base and the distal anterior articular promontory. The talus appears to be spared and | | the talocalcaneal joint is normal, although a small burned-out osteochondral defect | | about the medial talar dome and be difficult to exclude on coronal image 131. No fibular | | fracture Dorsal osteophytosis of the talotibial navicular joint, but with nonacute | | features IMPRESSION: 1. Shattered calcaneus. Multiple fracture planes: bisecting the | | sustentaculum, the distal articular promontory, and extending posteriorly to the level | | of the posterior margin of the posterior talotibial calcaneal joint Electronically | | signed by Yang Powell MD on 06/06/2016 9:30 PM | | | |1. The calcaneus is shattered. Fracture plane bisects the calcaneus at the level of the pos terior talocalcaneal joint, with multiple fracture planes extending anteriorly, inferiorly, bisecting the sustentaculum at its base and the distal anterior | |articular promontory. | | | |The talus appears to be spared and the talocalcaneal joint is normal, although a small burn ed-out osteochondral defect about the medial talar dome and be difficult to exclude on coron al image 131. | | | |No fibular fracture | | | |Dorsal osteophytosis of the talotibial navicular joint, but with nonacute features | | | |IMPRESSION: | | | |1. Shattered calcaneus. | | | |Multiple fracture planes: bisecting the sustentaculum, the distal articular promontory, and extending posteriorly to the level of the posterior margin of the posterior talotibial calc aneal joint | | | | | | | | | + + XR Calcaneus Left 2 + Vw (06/06/2016 8:29 PM PDT) + + | Specimen | + + | | + + + + + | Impressions | Performed At | + + + | 1. Multiplanar calcaneal fracture in cast Electronically | | | signed by Yang Powell MD on 06/06/2016 9:03 PM | | + + + + + + | Narrative | Performed At | + + + | History: 45 years old Male with pain. Technique: 1. 3 views | | | of the left foot in cast. 2. 2 views the left calcaneus No prior | | | study for comparison. Findings: Initial film demonstrates a | | | posterior splint multiplanar fractures oblique fracture planes | | | bisecting the mid and anterior aspect of the calcaneus from the level | | | of the posterior talocalcaneal joint to the anterior cuboid margin. | | | A subsequent follow-up films of the entire left foot demonstrate the | | | fracture to be stable, the foot to be stably aligned. Incidental | | | notation made of a osteophyte arising from the anterior distal | | | navicular bone. | | + + + + + | Procedure Note | + + | Karl, Rad Conversion - 09/29/2018 8:10 AM PDT History: 45 years old Male with pain. | | Technique: 1. 3 views of the left foot in cast.2. 2 views the left calcaneus No prior | | study for comparison. Findings: Initial film demonstrates a posterior splint multiplanar | | fractures oblique fracture planes bisecting the mid and anterior aspect of the | | calcaneus from the level of the posterior talocalcaneal joint to the anterior cuboid | | margin. A subsequent follow-up films of the entire left foot demonstrate the fracture to | | be stable, the foot to be stably aligned. Incidental notation made of a osteophyte | | arising from the anterior distal navicular bone. IMPRESSION: 1. Multiplanar calcaneal | | fracture in cast | |Findings: Initial film demonstrates a posterior splint multiplanar fractures oblique fractu re planes bisecting the mid and anterior aspect of the calcaneus from the level of the poste rior talocalcaneal joint to the anterior cuboid margin. | | | |A subsequent follow-up films of the entire left foot demonstrate the fracture to be stable, the foot to be stably aligned. | | | |Incidental notation made of a osteophyte arising from the anterior distal navicular bone. | | | |IMPRESSION: | | | |1. Multiplanar calcaneal fracture in cast | | | | | + + XR Foot Left 3 + Anish (06/06/2016 8:29 PM PDT) + + | Specimen | + + | | + + + + + | Impressions | Performed At | + + + | 1. Multiplanar calcaneal fracture in cast Electronically | | | signed by Yang Powell MD on 06/06/2016 9:03 PM | | + + + + + + | Narrative | Performed At | + + + | History: 45 years old Male with pain. Technique: 1. 3 views | | | of the left foot in cast. 2. 2 views the left calcaneus No prior | | | study for comparison. Findings: Initial film demonstrates a | | | posterior splint multiplanar fractures oblique fracture planes | | | bisecting the mid and anterior aspect of the calcaneus from the level | | | of the posterior talocalcaneal joint to the anterior cuboid margin. | | | A subsequent follow-up films of the entire left foot demonstrate the | | | fracture to be stable, the foot to be stably aligned. Incidental | | | notation made of a osteophyte arising from the anterior distal | | | navicular bone. | | + + + + + | Procedure Note | + + | Chris Barajas Conversion - 09/29/2018 8:10 AM PDT History: 45 years old Male with pain. | | Technique: 1. 3 views of the left foot in cast.2. 2 views the left calcaneus No prior | | study for comparison. Findings: Initial film demonstrates a posterior splint multiplanar | | fractures oblique fracture planes bisecting the mid and anterior aspect of the | | calcaneus from the level of the posterior talocalcaneal joint to the anterior cuboid | | margin. A subsequent follow-up films of the entire left foot demonstrate the fracture to | | be stable, the foot to be stably aligned. Incidental notation made of a osteophyte | | arising from the anterior distal navicular bone. IMPRESSION: 1. Multiplanar calcaneal | | fracture in cast | |Findings: Initial film demonstrates a posterior splint multiplanar fractures oblique fractu re planes bisecting the mid and anterior aspect of the calcaneus from the level of the poste rior talocalcaneal joint to the anterior cuboid margin. | | | |A subsequent follow-up films of the entire left foot demonstrate the fracture to be stable, the foot to be stably aligned. | | | |Incidental notation made of a osteophyte arising from the anterior distal navicular bone. | | | |IMPRESSION: | | | |1. Multiplanar calcaneal fracture in cast | | | | | + + documented in this encounter Visit Diagnoses + + | Diagnosis | + + | Leukocytosis, unspecified type | + + | Open fracture of left calcaneus, unspecified portion of calcaneus, initial encounter | + + documented in this encounter
--- OUTSIDE RECORDS SUMMARY | ~2019-09-18 | XMS | Encounter Summary ---
Demographics + + + | Address | [place] [address] | | | [facility] [facility] [address] | + + + | Home Phone | | + + + | Preferred Language | Unknown | + + + | Marital Status | Single | + + + | Latter-Day Affiliation | Unknown | + + + | Race | Unknown | + + + | Ethnic Group | Unknown | + + + Author + + + | Author | [facility] | | | and [place] | + + + | Organization | [facility] | | | and [place] | + + + | Address | Unknown | + + + | Phone | Unavailable | + + + Support + + + + + | Name | Relationship | Address | Phone | + + + + + | Elizabeth Venegas | ECON | [address] | | | | | [place] | | | | | [place], [place] | | | | | [address] | | + + + + + | Thu Fitzpatrick | ECON | [address] | | | | | [place], | | | | | [place] [address] | | + + + + + Care Team Providers + +------+ + | Care Gis Web Developer Name | Role | Phone | + +------+ + PCP | Unavailable | + +------+ + Encounter Details +--------+ + + + + | Date | Type | Department | Care Team | Description | +--------+ + + + + | 07/29/ | Hospital | [facility] | | | | 1997 | Encounter | [facility] | | | | | | CENTER [address] | | | | | | [place] | | | | | | [address] | | | | | | [phone] | | | +--------+ + + + [...]
--- OUTSIDE RECORDS SUMMARY | ~2019-09-18 | XMS | Encounter Summary ---
Demographics + + + | Address | [place] [address] | | | [facility] [facility] [address] | + + + | Home Phone | | + + + | Preferred Language | Unknown | + + + | Marital Status | Single | + + + | Baptist Affiliation | Unknown | + + + | Race | Unknown | + + + | Ethnic Group | Unknown | + + + Author + + + | Author | [facility] | | | and [place] | + + + | Organization | [facility] | | | and [place] | + + + | Address | Unknown | + + + | Phone | Unavailable | + + + Support + + + + + | Name | Relationship | Address | Phone | + + + + + | Elizabeth Venegas | ECON | [address] | | | | | [place] | | | | | [place], [place] | | | | | [address] | | + + + + + | Thu Fitzpatrick | ECON | [address] | | | | | [place], | | | | | [place] [address] | | + + + + + Care Team Providers + +------+ + | Care Lawn Mower Repairer Name | Role | Phone | + +------+ + PCP | Unavailable | + +------+ + Encounter Details +--------+ + + + + | Date | Type | Department | Care Team | Description | +--------+ + + + + | 10/08/ | Hospital | [facility] | Unknown, | | | 2006 | Encounter | MED CTR XRAY [address] | [address] | | | | | [place] | | | | | | [place] [address] | (Fax) | | | | | [phone] | | | +--------+ + + + [...]
--- OUTSIDE RECORDS SUMMARY | ~2019-09-18 | XMS | Encounter Summary ---
Demographics + + + | Address | [place] [address] | | | [facility] [facility] [address] | + + + | Home Phone | | + + + | Preferred Language | Unknown | + + + | Marital Status | Single | + + + | Mormon Affiliation | Unknown | + + + | Race | Unknown | + + + | Ethnic Group | Unknown | + + + Author + + + | Author | [facility] | | | and [place] | + + + | Organization | [facility] | | | and [place] | + + + | Address | Unknown | + + + | Phone | Unavailable | + + + Support + + + + + | Name | Relationship | Address | Phone | + + + + + | Elizabeth Venegas | ECON | [address] | | | | | [place] | | | | | [place], [place] | | | | | [address] | | + + + + + | Thu Fitzpatrick | ECON | [address] | | | | | [place], | | | | | [place] [address] | | + + + + + Care Team Providers + +------+ + | Care Masking Machine Operator Name | Role | Phone | + +------+ + | No, Physician | PCP | Unavailable | + +------+ + Reason for Visit + + + | Reason | Comments | + + + | Back Pain | exam 1/ low back radiates to LLE x 1 wk | + + + Encounter Details +--------+---------+ + + + | Date | Type | Department | Care Team | Description | +--------+---------+ + + + | 04/20/ | Office | [facility] | Guzman Polk, | Lumbar sprain, | | 2017 | Visit | CARE [address] | [address] | initial encounter | | | | [place] | (Primary Dx) | | | | [address] | [address] | | | | | [phone] | | | +--------+---------+ + + + [...] + + + | Blood Pressure | 136/89 | 04/20/2016 9:39 AM | | | | | PST | | + + + + + | Pulse | 80 | 04/20/2016 9:39 AM | | | | | PST | | + + + + + | Temperature | 36.9 C (98.5 F) | 04/20/2016 9:39 AM | | | | | PST | | + + + + + | Respiratory Rate | 12 | 04/20/2016 9:39 AM | | | | | PST | | + + + + + | Oxygen Saturation | 95% | 04/20/2016 9:39 AM | | | | | PST | | + + + + + | Inhaled Oxygen | - | - | | | Concentration | | | | + + + + + | Weight | 112 kg (247 lb) | 04/20/2016 9:39 AM | | | | | PST | | + + + + + | Height | 180.3 cm (5' 11") | 04/20/2016 9:39 AM | | | | | PST | | + + + + + | Body Mass Index | 34.45 | 04/20/2016 9:39 AM | | | | | PST | | + + + + + documented in this encounter Patient Instructions Patient Instructions Guzman Polk MD - 04/20/2016 10:25 AM PSTUse heat and light activ ity, with slow stretching and range of motion for your back as needed. Take ibuprofen 600 m g every 6 hours and hydrocodone with Tylenol as directed as needed for pain. Let us know if you want to start physical therapy. Return to clinic if symptoms persist, change or worsen over the next couple weeks. documented in this encounter Progress Notes Guzman Polk MD - 04/20/2016 12:16 PM PSTFormatting of this note might be different fr om the original. Subjective: Chief Complaint: Back Pain Yvette is a 45 y.o. male who comes in complaining of a 5 day history of some left lower back pain that radiates slightly into the left buttocks and posterior proximal thigh, though not distally to the lower extremities with no weakness or paresthesias. He denies any specific trauma or overuse though states it may have been from doing some bending and pulling while a t work. He has had prior problems with back pain though never this severe. He's been tryin g to treat it with some ibuprofen, icy hot, and health care / medical job titles, all without much benefit. No other complaints. Patient's medications, allergies, past medical, surgical, social and family histories were reviewed and updated as appropriate. Objective: BP 136/89 mmHg | Pulse 80 | Temp(Src) 36.9 C (98.5 F) (Temporal) | Resp 12 | Ht 1.803 m (5' 11") | Wt 112.038 kg (247 lb) | BMI 34.46 kg/m2 | SpO2 95% General Appearance: Alert, cooperative, no distress, appears stated age Back has some diffuse tenderness in the lower lumbar spinal region and left lower lumbar pa raspinal muscles extending slightly to the left sacral region, no focal point spinal tendern ess, with the rest the back nontender. No erythema or ecchymoses. Lower extremities have normal strength and sensation throughout with negative straight leg raise bilaterally, reflexes 2+ and symmetric to knee jerk and ankle jerk Assessment and Plans: Lumbar sprain. Will treat with heat, slow stretching, gentle range of motion exercises, ib uprofen and Lortab 5/325, #20, as needed, and if symptoms are not improving over the week ma y try physical therapy as well. He is to return over the next couple weeks if symptoms are not resolving. documented in this encounter Plan of Treatment Not on filedocumented as of this encounter Visit Diagnoses + + | Diagnosis | + + | Lumbar sprain, initial encounter - Primary | + + documented in this encounter
--- OUTSIDE RECORDS SUMMARY | ~2019-09-18 | XMS | Encounter Summary ---
Demographics + + + | Address | [address] | | | [facility] [address] | + + + | Home Phone | | + + + | Preferred Language | Unknown | + + + | Marital Status | Single | + + + | Tenriism Affiliation | Unknown | + + + | Race | Unknown | + + + | Ethnic Group | Unknown | + + + Author + + + | Author | [facility] | | | and [place] | + + + | Organization | [facility] | | | and [place] | + + + | Address | Unknown | + + + | Phone | Unavailable | + + + Support + + + + + | Name | Relationship | Address | Phone | + + + + + | Elizabeth Venegas | ECON | [address] | | | | | [place] | | | | | [place], [place] | | | | | [address] | | + + + + + | Thu Fitzpatrick | ECON | [address] | | | | | [place], | | | | | [place] [address] | | + + + + + Care Team Providers + +------+ + | Care Surplus Property Disposal Agent Name | Role | Phone | + +------+ + | Denny Moore DO | PCP | | + +------+ + Reason for Visit + +--------+ + | Reason | Onset | Comments | | | Date | | + +--------+ + | Follow-up | 03/14/ | UC appt for sore throat | | | 2013 | | + +--------+ + Encounter Details +--------+ + + + + | Date | Type | Department | Care Team | Description | +--------+ + + + + | 03/14/ | Telephone | [facility] | Yuni Mccullough, | Follow-up (UC appt | | 2013 | | CARE [address] | RN | for sore throat) | | | | [place] | | | | | | [address] | | | | | | [phone] | | | +--------+ + + + [...] this encounter Miscellaneous Notes Telephone Encounter - Yuni Ring RN - 03/14/2013 2:58 PM PSTAttempted to contact patient as follow up for recent appt for sore throat. Left voicemail advising patient sta jon was calling to see how he was feeling and to inquire if he has any questions or concerns. Advised patient if he was feeling better and did not have any questions or concerns there i s no need to return staffs phone call. No further action needed at this jesus documented in this encounter Plan of Treatment Not on filedocumented as of this encounter Visit Diagnoses Not on filedocumented in this encounter"
--- OUTSIDE RECORDS SUMMARY | ~2019-09-18 | XMS | Encounter Summary ---
Demographics + + + | Address | [place] [id number] | | | [facility] [address] | + + + | Home Phone | | + + + | Preferred Language | Unknown | + + + | Marital Status | Single | + + + | Spiritism Affiliation | Unknown | + + + | Race | Unknown | + + + | Ethnic Group | Unknown | + + + Author + + + | Author | [facility] | | | and [place] | + + + | Organization | [facility] | | | and [place] | + + + | Address | Unknown | + + + | Phone | Unavailable | + + + Support + + + + + | Name | Relationship | Address | Phone | + + + + + | Elizabeth Venegas | ECON | [address] | | | | | [place] | | | | | [place], [place] | | | | | [address] | | + + + + + | Thu Fitzpatrick | ECON | [address] | | | | | [place], | | | | | [place] [address] | | + + + + + Care Team Providers + +------+ + | Care Nursing Scheduler Name | Role | Phone | + +------+ + PCP | Unavailable | + +------+ + Encounter Details +--------+ + + + + | Date | Type | Department | Care Team | Description | +--------+ + + + + | 09/10/ | Hospital | [facility] | | | | 2003 | Encounter | [facility] [address] | | | | | [address] | | | | | | [place] [address] | | | | | | [phone] | | | +--------+ + + + [...]
[~2019-09-18 14:24] MED LIST: LISINOPRIL10 MG PO; PAROXETINE HCL20 MG PO; VERAPAMIL ER240 MG PO
--- OUTSIDE RECORDS SUMMARY | 2019-09-18 14:26 | XMS ---
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 Peng has no Care Guidelines for this patient. Lynne VISIT COUNT (12 MO.) 1 [place] TOTAL 1 NOTE: Visits indicate total known visits. ED/UCC VISIT TRACKING (12 MO.) 09/18/2019 14:25 [place] [place] TYPE: Emergency COMPLAINT: - [facility]EE [facility] INPATIENT VISIT TRACKING (12 MO.) No inpatient visits to display in this time frame [id number]
[2019-09-18] MEDS ORDERED: CARDIZEM30 MG (15:04)
[2019-09-18] MEDS ORDERED: EPIPEN 2-P0.3 MG/0.3 IM (18:14)
== END 2019-09-18 18:26 | disposition home or self-care (01) ==
LOC: ED 14:24
DX: T63.441A Toxic effect of venom of bees, accidental (unintentional), initial encounter (principal); I10 Essential (primary) hypertension; Z79.899 Other long term (current) drug therapy
CPT/HCPCS: 96361; 96374; 96375; 99284-25; J0171; J1100; J1200; J2405; J7030